=== PATIENT | female | born 1965 | race Caucasian/White ===

== ENCOUNTER 2016-02-28 16:37 | Observation (INO) | payer MEDICARE ==
[2016-02-28] MEDS ORDERED: SODIUM CHLORIDE 0.9% 500 ML IV STA (16:54)
[2016-02-28] MEDS ORDERED: SODIUM CHLORIDE 0.9% 1,000 ML IV STA ×2 (16:54)
[2016-02-28] MEDS ORDERED: LORazepam 2 MG/ML SYRINGE IV STA (16:57)
[2016-02-28 17:15] LABS: Basophils # (A) 0.1 k/uL (0-0.2); Basophils % (A) 1 %; CH 28.9; CHCM 33.3; Eosinophils # (A) 0.1 k/uL (0-0.7); Eosinophils % (A) 1 %; HCT 42.1 % (34.0-46.0); HDW 2.47; HGB 13.7 gm/dL (11.4-16.0); Luc # (Auto) 0.08; Luc % (Auto) 1; Lymphocytes # (A) 1.2 k/uL (1.0-4.8); Lymphocytes % (A) 14 %; MCH 28.3 pg (25.0-35.0); MCHC 32.4 g/dL (31.0-37.0); MCV 87.4 fL (80.0-100.0); Mean Platelet Volume 7.1; Monocytes # (A) 0.4 k/uL (0-1.0); Monocytes % (A) 5 %; Neutrophils % (A) 79 %; RBC 4.82 m/uL (3.80-5.40); RDW 14.1 % (11.5-15.5); WBC 8.8 k/uL (3.8-10.6); WBC (Perox) 9.23
[2016-02-28 17:28] LABS: ALT 29 U/L (9-52); AST 27 U/L (14-36); Alkaline Phosphatase 79 U/L (38-126); Anion Gap 14 mmol/L; Blood Urea Nitrogen 19 mg/dL (7-17); Calcium 10.2 mg/dL (8.4-10.2); Carbon Dioxide 24 mmol/L (22-30); Chloride 105 mmol/L (98-107); Glucose 119 mg/dL (74-99); Magnesium 1.5 mg/dL (1.6-2.3); Non-African American GFR(MDRD) >60 (>60 ml/min/1.73 sqM); Phosphorous 3.3 mg/dL (2.5-4.5); Potassium 4.1 mmol/L (3.5-5.1); Sodium 143 mmol/L (137-145); Total Bilirubin 0.6 mg/dL (0.2-1.3); Total Protein 8.4 g/dL (6.3-8.2)
--- NOTE | 2016-02-28 17:31 | XR ---
EXAMINATION TYPE: XR chest 2V DATE OF EXAM: 02/28/2016 5:24 PM COMPARISON: 11/10/2014 HISTORY: Weakness and chest pain TECHNIQUE: Frontal and lateral views of the chest are obtained. FINDINGS: Heart and mediastinum are normal. Lungs are clear of infiltrate. Costophrenic angles are c lear. There are no hilar masses. There are multiple densities along the thoracic esophagus related to previous surgery. Bony thorax is intact. IMPRESSION: No active cardiopulmonary disease. Normal heart. Esophageal surgery. No change.
[2016-02-28 17:34] LABS: Partial Thromboplastin Time 23.3 sec (22.0-30.0); Prothrombin Time 10.4 sec (9.0-12.0)
[2016-02-28 17:51] LABS: Creatine Kinase MB 1.7 ng/mL (0.0-2.4); Troponin I 0.029 ng/mL (0.000-0.034)
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
[2016-02-28] MEDS ORDERED: RX INFO: IV CONTRAST WAS GIVEN 1 EACH MISC MISCELLANE PRN (18:13)
[2016-02-28] MEDS ORDERED: ASPIRIN 81 MG CHEW PO STA (18:13)
[2016-02-28] MEDS ORDERED: HEPARIN SODIUM,PORCINE 5,000 UNIT/ML 1 ML VIAL IV PRN (18:13)
[2016-02-28] MEDS ORDERED: HEPARIN SODIUM,PORCINE 5,000 UNIT/ML 1 ML VIAL IV ONE (18:13)
[2016-02-28] MEDS ORDERED: NITROGLYCERIN SL TABS 0.4 MG TAB SUBLINGUAL PRN (18:13)
[2016-02-28] MEDS ORDERED: SODIUM CHLORIDE 0.9% 1,000 ML IV SCH (18:15)
[2016-02-28] MEDS ORDERED: HEPARIN SODIUM,PORCINE/D5W PMX 25,000 UNIT in DEXTROSE/WATER 1 500ML.BAG IV SCH (18:15)
--- NOTE | 2016-02-28 18:55 | CT ---
EXAMINATION TYPE: CT angio chest DATE OF EXAM: 02/28/2016 6:47 PM COMPARISON: 11/17/2015 HISTORY: Left sided Chest pain CT DLP: 144.2 mGycm Automated exposure control for dose reduction was used. CONTRAST: CTA scan of the thorax is performed with IV Contrast, patient injected with 53 mL of Omnipaque 350, p ulmonary embolism protocol. MIP images are created and reviewed. 3D reconstructed images are create d on an independent workstation and reviewed. FINDINGS: The lungs are clear of consolidation. There is no pleural effusion. There is a large hiatal hernia. T here are no hilar masses. There is no mediastinal adenopathy. There is no evidence of aortic aneurysm or dissection. Heart size is normal. There is no pericardial effusion. There is normal contrast opacification of the pulmonary arteries. I see no filling defect. There is m inimal pulmonary emphysema. The bony thorax is intact. There is a large right renal cortical cyst. IMPRESSION: NO EVIDENCE OF PULMONARY EMBOLISM. LARGE HIATAL HERNIA WITH GASTRIC PULL-THROUGH PROCEDURE.. MILD PUL MONARY EMPHYSEMA. NO CHANGE COMPARED TO OLD EXAM.
[2016-02-28 20:01] VITALS: RESP 16
[2016-02-28 20:49] VITALS: BMI 21.7
[2016-02-28] MEDS: METOPROLOL TARTRATE 25 MG TAB PO SCH (21:48)
[2016-02-29 00:58] LABS: Creatine Kinase MB 1.6 ng/mL (0.0-2.4); Troponin I 0.02 ng/mL (0.000-0.034)
[2016-02-29 05:43] LABS: Basophils # (A) 0.1 k/uL (0-0.2); Basophils % (A) 1 %; CH 28.5; CHCM 31.5; Eosinophils # (A) 0.2 k/uL (0-0.7); Eosinophils % (A) 3 %; HCT 40.6 % (34.0-46.0); HDW 2.45; HGB 12.2 gm/dL (11.4-16.0); Luc # (Auto) 0.08; Luc % (Auto) 1; Lymphocytes % (A) 33 %; MCH 27.4 pg (25.0-35.0); MCV 91.2 fL (80.0-100.0); Mean Platelet Volume 7.1; Monocytes # (A) 0.3 k/uL (0-1.0); Monocytes % (A) 5 %; Neutrophils # (A) 3.4 k/uL (1.3-7.7); Neutrophils % (A) 57 %; RBC 4.45 m/uL (3.80-5.40); RDW 14.2 % (11.5-15.5); WBC (Perox) 6.37
[2016-02-29 05:58] LABS: Cholesterol 222 mg/dL (<200); HDL Cholesterol 61 mg/dL (40-60); Triglycerides 94 mg/dL (<150)
[2016-02-29 06:18] LABS: Creatine Kinase MB 1.8 ng/mL (0.0-2.4); Troponin I 0.018 ng/mL (0.000-0.034)
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
[2016-02-29] MEDS ORDERED: ASPIRIN 325 MG TAB PO SCH (09:00)
[2016-02-29] MEDS ORDERED: ATORVASTATIN 80 MG TAB PO SCH (09:00)
[2016-02-29] MEDS: METOPROLOL TARTRATE 25 MG TAB PO SCH (12:36)
[2016-02-29 13:10] VITALS: BP 99/60; PULSE 86; TEMP 97.5
--- NOTE | 2016-02-29 13:10 | ECHOS ---
DATE OF SERVICE: 02/29/2016 AGE: 51Y SEX: F HT: 62" WT: 119 lbs. Protocol Earl: X Others: Stress Echo Stage: 3 Dur. of Exercise: 7:15 *Heart Rate Blood Pressure *Rest: 89 Rest: 111/81 * *Max. Achieved: 140 Maximum BP: 160/82 85% PMHR: 142 100% PMHR: 167 *METS: 8.3 INDICATIONS: Chest pain. MEDICATIONS: Omeprazole Baseline EKG revealed a sinus mechanism without significant ST-T changes. Patient walked on standard Earl protocol for 7 minutes 15 seconds, achieved a maximum heart rate of 140 beats per minute. Developed fatigue and shortness of breath and therefore stress test was stopped. She achieved almost 85% of predicted maximum heart rate. At this exercise level, her EKG did not reveal any ST segment changes to indicate ischemia and there was no arrhythmia and she did not have angina. Exercise capacity is somewhat limited. By EKG criteria, this is a negative stress test with limited exercise capacity. She takes achieved almost 85% of her predicted maximum heart rate. Peak blood pressure was 160/82. Baseline echo images revealed a normal wall motion and wall thickening of all segments. At peak exercise, there was good augmentation of left ventricular wall motion and wall thickening of all segments suggesting that there is no evidence of any stress-induced ischemia on this study. FINAL IMPRESSION: 1. Limited exercise capacity with poor conditioning with unremarkable stress test by EKG criteria. 2. Normal stress echocardiogram.
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
== END 2016-02-29 14:43 | disposition home or self-care (01) ==
LOC: EC 16:37 → 3OBS 18:13
PROVIDERS: ADMIT Hospitalist; ATTEND Hospitalist
DX: R07.89 Other chest pain (principal); F17.210 Nicotine dependence, cigarettes, uncomplicated; F41.9 Anxiety disorder, unspecified; K21.9 Gastro-esophageal reflux disease without esophagitis; M19.90 Unspecified osteoarthritis, unspecified site; Z79.899 Other long term (current) drug therapy; Z85.01 Personal history of malignant neoplasm of esophagus; R20.0 Anesthesia of skin; Z80.3 Family history of malignant neoplasm of breast; Z80.8 Family history of malignant neoplasm of other organs or systems; Z88.6 Allergy status to analgesic agent; Z88.8 Allergy status to other drugs, medicaments and biological substances
CPT/HCPCS: 99291; 96365; 96375; 96376; 96361 ×2; 36415; 93005; 93017; 93350; 85379; 80061; 80053; 82550 ×2; 82553 ×2; 83735; 84100; 84443; 84484 ×2; 85025 ×2; 85610; 85730 ×2; 71020; 71275; G0378 ×2; J2060; J1644 ×2; Q9967; 96366

== ENCOUNTER 2016-05-11 08:32 | Inpatient (IN) | payer MEDICARE ==
[2016-05-11] MEDS ORDERED: ONDANSETRON 4 MG/2 ML VIAL IVP STA (08:49)
[2016-05-11] MEDS ORDERED: SODIUM CHLORIDE 0.9% 1,000 ML IV ONE (08:49)
[2016-05-11] MEDS ORDERED: PANTOPRAZOLE 40 MG/10 ML VIAL IVP STA (08:49)
[2016-05-11] MEDS ORDERED: HYDROmorphone 1 MG/ML 1 ML SYRINGE IVP STA ×2 (08:49→09:57)
--- NOTE | 2016-05-11 08:57 | ED ---
General Adult HPI - General Source: patient, RN notes reviewed Mode of arrival: ambulatory Limitations: no limitations <Eros Adamson - Last Filed: 05/11/16 10:20> <Bill Hi - Last Filed: 05/11/16 11:55> - General Chief complaint: Nausea/Vomiting/Diarrhea Stated complaint: Throwing up Blood Time Seen by Provider: 05/11/16 08:38 - History of Present Illness Initial comments: 51-year-old female patient has past medical history significant for esophageal cancer status post esophagectomy and partial gastrectomy with gastric pull through and chemotherapy six years ago. Today she presents for complaints of hematemesis. Patient states that last night she had 2 episodes of vomiting with a small amount of blood present. Patient states that this morning she has vomited multiple times with large amounts of bright red blood. Patient states that she is having some midepigastric abdominal pain, that she describes as a pressure or a "gas bubble". Patient denies any history of GI bleed. Patient denies any dark, bloody, or black stools. Patient denies any chest pain, back pain, constipation, diarrhea, shortness of breath, or dizziness. She states she is somewhat weak and was lightheaded when walking to her exam room. Patient 's surgery was done at [facility] 6 years ago. Patient's oncologist is Dr. Morris. Patient states that her subjective cancer is in remission for her oncologist. (Eros Adamson) - Related Data Home Medications Medication Instructions Recorded Confirmed Omeprazole [PriLOSEC] 20 mg PO PC-LUNCH 10/06/13 05/11/16 Allergies Allergy/AdvReac Type Severity Reaction Status Date / Time aspirin AdvReac Abdominal Verified 05/11/16 08:52 Pain STERIODS AdvReac CHEST Uncoded 05/11/16 08:35 TIGHTNESS Review of Systems ROS Other: All systems not noted in ROS Statement are negative. <Eros Adamson - Last Filed: 05/11/16 10:20> ROS Other: All systems not noted in ROS Statement are negative. <Bill Hi - Last Filed: 05/11/16 11:55> ROS Statement: Those systems with pertinent positive or pertinent negative responses have been documented in the HPI. Past Medical History Past Medical History: Cancer, GERD/Reflux, Osteoarthritis (OA) Additional Past Medical History / Comment(s): hx of esophageal cancer 2010-had chemo & radiation prior to surg., recent shingles now resolved History of Any Multi-Drug Resistant Organisms: None Reported Past Surgical History: Section, Tubal Ligation Additional Past Surgical History / Comment(s): surg. for fx. pelvis @age of 16, had most of esophagus & 1/3 of stomach removed @[facility] Past Anesthesia/Blood Transfusion Reactions: No Reported Reaction Past Psychological History: Anxiety, Depression Additional Psychological History / Comment(s): 6 months ago Smoking Status: Current every day smoker Past Alcohol Use History: Occasional Additional Past Alcohol Use History / Comment(s): STATES HAS CIGARETTE WITH ALCHOHOL USE ONCE A MONTH Past Drug Use History: None Reported Additional Drug Use History / Comment(s): OCCASIONAL USE, INSTRUCTED NOT TO USE 24 HRS PRIOR TO PROCEDURE - Past Family History Sister(s) Family Medical History: Deep Vein Thrombosis (DVT) Mother Family Medical History: Deep Vein Thrombosis (DVT) <Eros Adamson - Last Filed: 05/11/16 10:20> General Exam Limitations: no limitations General appearance: alert, in no apparent distress, anxious Head exam: Present: atraumatic, normocephalic, normal inspection Eye exam: Present: normal appearance, PERRL, EOMI. Absent: scleral icterus, conjunctival injection, periorbital swelling ENT exam: Present: normal exam, mucous membranes moist Neck exam: Present: normal inspection, full ROM. Absent: tenderness, meningismus, lymphadenopathy Respiratory exam: Present: normal lung sounds bilaterally. Absent: respiratory distress, wheezes, rales, rhonchi, stridor Cardiovascular Exam: Present: normal rhythm, tachycardia, normal heart sounds. Absent: systolic murmur, diastolic murmur, rubs, gallop, clicks GI/Abdominal exam: Present: soft, tenderness (Exquisite tenderness in the upper abdomen.), guarding, normal bowel sounds. Absent: distended, rebound, rigid, organomegaly, mass, hernia Extremities exam: Present: normal inspection, full ROM, normal capillary refill. Absent: tenderness, pedal edema, joint swelling, calf tenderness Back exam: Present: normal inspection Neurological exam: Present: alert, oriented X3, CN II-XII intact Psychiatric exam: Present: anxious Skin exam: Present: warm, dry, intact, pallor. Absent: rash <Eros Adamson - Last Filed: 05/11/16 10:20> General appearance: alert, in no apparent distress Head exam: Present: atraumatic, normocephalic, normal inspection Eye exam: Present: normal appearance, PERRL, EOMI. Absent: scleral icterus, conjunctival injection, periorbital swelling ENT exam: Present: normal exam, mucous membranes moist Neck exam: Present: normal inspection. Absent: tenderness, meningismus, lymphadenopathy Respiratory exam: Present: normal lung sounds bilaterally. Absent: respiratory distress, wheezes, rales, rhonchi, stridor Cardiovascular Exam: Present: normal rhythm, tachycardia, normal heart sounds. Absent: systolic murmur, diastolic murmur, rubs, gallop, clicks GI/Abdominal exam: Present: soft, normal bowel sounds. Absent: distended, tenderness, guarding, rebound, rigid Extremities exam: Present: normal inspection, full ROM, normal capillary refill. Absent: tenderness, pedal edema, joint swelling, calf tenderness Back exam: Present: normal inspection Neurological exam: Present: alert, oriented X3, CN II-XII intact Psychiatric exam: Present: normal affect, normal mood Skin exam: Present: warm, dry, intact, normal color. Absent: rash <Bill Hi - Last Filed: 05/11/16 11:55> Course <Eros Adamson - Last Filed: 05/11/16 10:20> <Bill Hi - Last Filed: 05/11/16 11:55> Vital Signs 05/11/16 08:35 Temperature 97.9 F Pulse Rate 121 H Respiratory 17 Rate Blood Pressure 146/80 O2 Sat by Pulse 98 Oximetry - Reevaluation(s) Reevaluation #1: 05/11/16 11:54 Patient's vomiting has stopped with adequate antiemetics (Bill Hi) EKG Findings - EKG Comments: EKG Findings:: EKG obtained at 0926 reveals sinus tachycardia with possible left atrial enlargement. Ventricular rate 102, SC interval 122, QRS duration 78 , QT 344, QTc 448. No evidence of ST elevation or depression <Eros Adamson - Last Filed: 05/11/16 10:20> Medical Decision Making - Lab Data Result diagrams: 05/11/16 09:15 05/11/16 09:15 <Eros Adamson - Last Filed: 05/11/16 10:20> - Lab Data Result diagrams: 05/11/16 09:15 05/11/16 09:15 <Bill Hi - Last Filed: 05/11/16 11:55> - Medical Decision Making 51-year-old presented for hematemesis. Patient did have an episode in the emergency department. Patient is stable. Patient be admitted to the hospital with evaluation from Dr. Stubbs and Dr. Branham. (Eros Adamson) 51-year-old hemodynamically stable coming with acute upper GI bleed, suspect Belinda-Álvarez tear from retching, patient will be admitted for evaluation of hemoglobin GI evaluation and surgical evaluation patient has complicated upper GI history with esophageal cancer and surgery (Bill Hi) - Lab Data Lab Results 05/11/16 05/11/16 05/11/16 Range/Units 09:15 09:15 09:15 WBC 7.6 (3.8-10.6) k/uL RBC 4.51 (3.80-5.40) m/uL Hgb 12.7 (11.4-16.0) gm/dL Hct 39.5 (34.0-46.0) % MCV 87.5 (80.0-100.0) fL MCH 28.2 (25.0-35.0) pg MCHC 32.2 (31.0-37.0) g/dL RDW 14.0 (11.5-15.5) % Plt Count 312 (150-450) k/uL Neutrophils % 76 % Lymphocytes % 15 % Monocytes % 4 % Eosinophils % 2 % Basophils % 1 % Neutrophils # 5.7 (1.3-7.7) k/uL Lymphocytes # 1.1 (1.0-4.8) k/uL Monocytes # 0.3 (0-1.0) k/uL Eosinophils # 0.2 (0-0.7) k/uL Basophils # 0.1 (0-0.2) k/uL PT 9.7 (9.0-12.0) sec INR 0.9 (<1.1) APTT 25.0 (22.0-30.0) sec Sodium 144 (137-145) mmol/L Potassium 4.4 (3.5-5.1) mmol/L Chloride 107 (98-107) mmol/L Carbon Dioxide 25 (22-30) mmol/L Anion Gap 12 mmol/L BUN 16 (7-17) mg/dL Creatinine 0.81 (0.52-1.04) mg/dL Est GFR (MDRD) Af Amer >60 (>60 ml/min/1.73 sqM) Est GFR (MDRD) Non-Af >60 (>60 ml/min/1.73 sqM) Glucose 116 H (74-99) mg/dL Calcium 9.5 (8.4-10.2) mg/dL Total Bilirubin 0.4 (0.2-1.3) mg/dL AST 23 (14-36) U/L ALT 22 (9-52) U/L Alkaline Phosphatase 102 (38-126) U/L Total Protein 7.9 (6.3-8.2) g/dL Albumin 4.3 (3.5-5.0) g/dL Amylase 70 (30-110) U/L Lipase 179 (23-300) U/L Blood Type Blood Type Recheck Antibody Screen Spec Expiration Date 05/11/16 Range/Units 09:15 WBC (3.8-10.6) k/uL RBC (3.80-5.40) m/uL Hgb (11.4-16.0) gm/dL Hct (34.0-46.0) % MCV (80.0-100.0) fL MCH (25.0-35.0) pg MCHC (31.0-37.0) g/dL RDW (11.5-15.5) % Plt Count (150-450) k/uL Neutrophils % % Lymphocytes % % Monocytes % % Eosinophils % % Basophils % % Neutrophils # (1.3-7.7) k/uL Lymphocytes # (1.0-4.8) k/uL Monocytes # (0-1.0) k/uL Eosinophils # (0-0.7) k/uL Basophils # (0-0.2) k/uL PT (9.0-12.0) sec INR (<1.1) APTT (22.0-30.0) sec Sodium (137-145) mmol/L Potassium (3.5-5.1) mmol/L Chloride (98-107) mmol/L Carbon Dioxide (22-30) mmol/L Anion Gap mmol/L BUN (7-17) mg/dL Creatinine (0.52-1.04) mg/dL Est GFR (MDRD) Af Amer (>60 ml/min/1.73 sqM) Est GFR (MDRD) Non-Af (>60 ml/min/1.73 sqM) Glucose (74-99) mg/dL Calcium (8.4-10.2) mg/dL Total Bilirubin (0.2-1.3) mg/dL AST (14-36) U/L ALT (9-52) U/L Alkaline Phosphatase (38-126) U/L Total Protein (6.3-8.2) g/dL Albumin (3.5-5.0) g/dL Amylase (30-110) U/L Lipase (23-300) U/L Blood Type O Positive Blood Type Recheck No Antibody Screen NEGATIVE Spec Expiration Date 05/14/20162314 Disposition Time of Disposition: 10:24 <Eros Adamson - Last Filed: 05/11/16 10:20> <Bill Hi - Last Filed: 05/11/16 11:55> Clinical Impression: Hematemesis, History of esophageal cancer, Epigastric pain, H/O esophagectomy Disposition: ADMITTED IP TO THIS [facility] Condition: Serious Referrals: Jose Ramirez MD [Primary Care Provider] - 1-2 days
[2016-05-11 09:36] LABS: Basophils # (A) 0.1 k/uL (0-0.2); Basophils % (A) 1 %; CH 28.3; CHCM 32.5; Eosinophils # (A) 0.2 k/uL (0-0.7); Eosinophils % (A) 2 %; HCT 39.5 % (34.0-46.0); HDW 2.46; HGB 12.7 gm/dL (11.4-16.0); Luc # (Auto) 0.15; Luc % (Auto) 2; Lymphocytes # (A) 1.1 k/uL (1.0-4.8); Lymphocytes % (A) 15 %; MCH 28.2 pg (25.0-35.0); MCHC 32.2 g/dL (31.0-37.0); MCV 87.5 fL (80.0-100.0); Mean Platelet Volume 6.3; Monocytes # (A) 0.3 k/uL (0-1.0); Monocytes % (A) 4 %; Neutrophils # (A) 5.7 k/uL (1.3-7.7); Neutrophils % (A) 76 %; RBC 4.51 m/uL (3.80-5.40); WBC 7.6 k/uL (3.8-10.6); WBC (Perox) 7.84
--- NOTE | 2016-05-11 09:38 | XR ---
EXAMINATION TYPE: XR chest 1V portable DATE OF EXAM: 05/11/2016 9:31 AM HISTORY: Pain. REFERENCE: Previous study dated 02/28/2016. FINDINGS: There is a surgical staple line projecting over the spine. There is a calcified granuloma in the right upper lobe. The lungs are otherwise clear. Pleural spaces are clear. Heart size is normal. IMPRESSION: 1. NO ACUTE INTRATHORACIC ABNORMALITY. 2. POSTSURGICAL CHANGE. 3. OLD GRANULOMATOUS DISEASE.
[2016-05-11 09:45] LABS: ALT 22 U/L (9-52); AST 23 U/L (14-36); Alkaline Phosphatase 102 U/L (38-126); Amylase 70 U/L (30-110); Anion Gap 12 mmol/L; Blood Urea Nitrogen 16 mg/dL (7-17); Calcium 9.5 mg/dL (8.4-10.2); Carbon Dioxide 25 mmol/L (22-30); Chloride 107 mmol/L (98-107); Glucose 116 mg/dL (74-99); Non-African American GFR(MDRD) >60 (>60 ml/min/1.73 sqM); Potassium 4.4 mmol/L (3.5-5.1); Sodium 144 mmol/L (137-145); Total Bilirubin 0.4 mg/dL (0.2-1.3); Total Protein 7.9 g/dL (6.3-8.2)
[2016-05-11 09:46] LABS: INR 0.9 (<1.1); Prothrombin Time 9.7 sec (9.0-12.0)
[2016-05-11] MEDS ORDERED: METOCLOPRAMIDE 5 MG/ML 2 ML VIAL IVP STA (09:57)
--- NOTE | 2016-05-11 09:59 | XR ---
EXAMINATION TYPE: XR KUB DATE OF EXAM ORDERED: 05/11/2016 9:31 AM HISTORY: Pain. COMPARISON: Previous study dated 11/18/2013. FINDINGS: There has been previous wiring of the symphysis pubis. The wires are fractured. There are healed fractures of both the superior and inferior pubic rami on the right. There has been left upper quadrant surgery. There is an enlarging staghorn calculus involving the right kidney. The largest fragment measures 3 c m. There are multiple left renal calculi. The largest measures 11.3 mm. There are globular radiopaque particles in the right upper quadrant, unchanged from previous. There i s artifact overlying the pelvis related to metal tubing. IMPRESSION: 1. ENLARGING STAGHORN CALCULUS ON THE RIGHT. 2. BILATERAL NEPHROLITHIASIS. 3. POSTSURGICAL CHANGE. 4. ARTIFACT OVERLYING THE PELVIS. 5. STABLE AMORPHOUS DENSITIES IN THE RIGHT UPPER QUADRANT.
[2016-05-11] MEDS ORDERED: ONDANSETRON 4 MG/2 ML VIAL IVP PRN (10:24)
[2016-05-11] MEDS ORDERED: NALOXONE 0.4 MG/ML 1 ML VIAL IV PRN (10:24)
[2016-05-11] MEDS: HYDROmorphone 1 MG/ML 1 ML SYRINGE IV PRN ×3 (14:08→23:15)
[2016-05-11] MEDS: SODIUM CHLORIDE 0.9% 1,000 ML IV SCH ×2 (14:11→23:16)
--- NOTE | 2016-05-11 17:05 | P.GSCN ---
History of Present Illness Consult date: 05/11/16 Reason for Consult: Hematemesis History of present illness: Patient has a personal history of esophageal cancer treated with a esophagectomy at [facility] 6 years ago. She began experiencing blood when she coughed or had emesis. She has had several episodes like this. She cannot clarify further whether this was related to coughing or vomiting. She was having some mild chest pain. That has resolved. No bleeding recently. Denies melanotic stools. Last upper endoscopy done by Dr. Branham not that long ago she states. CAT scan in February showed no definite abnormalities. Her hemoglobin white blood cell count both normal. Chest x-ray shows no pneumomediastinum. She is experiencing some relative hypotension. Review of Systems The patient denies any acute changes in his vision or hearing, no dysphagia or odynophagia, no shortness of breath, no dysuria or hematuria, no headache, no runny nose, no rectal bleeding or melena, no unexplained weight loss Past Medical History Past Medical History: Cancer, GERD/Reflux, Osteoarthritis (OA) Additional Past Medical History / Comment(s): hx of esophageal cancer 2010-had chemo & radiation prior to surg., recent shingles now resolved, hx of bleeding ulcer. History of Any Multi-Drug Resistant Organisms: None Reported Past Surgical History: Section, Tubal Ligation Additional Past Surgical History / Comment(s): surg. for fx. pelvis @age of 16, had most of esophagus & 1/3 of stomach removed @[facility] Past Anesthesia/Blood Transfusion Reactions: No Reported Reaction Past Psychological History: Anxiety, Depression Additional Psychological History / Comment(s): 6 months ago Smoking Status: Current every day smoker Past Alcohol Use History: Occasional Additional Past Alcohol Use History / Comment(s): STATES HAS CIGARETTE WITH ALCHOHOL USE ONCE A MONTH Past Drug Use History: None Reported Additional Drug Use History / Comment(s): OCCASIONAL USE, INSTRUCTED NOT TO USE 24 HRS PRIOR TO PROCEDURE - Past Family History Sister(s) Family Medical History: Deep Vein Thrombosis (DVT) Mother Family Medical History: Deep Vein Thrombosis (DVT) Medications and Allergies Home Medications Medication Instructions Recorded Confirmed Type Omeprazole [PriLOSEC] 20 mg PO PC-LUNCH 10/06/13 05/11/16 History Allergies Allergy/AdvReac Type Severity Reaction Status Date / Time aspirin AdvReac Abdominal Verified 05/11/16 08:52 Pain STERIODS AdvReac CHEST Uncoded 05/11/16 08:35 TIGHTNESS Surgical - Exam Vital Signs Temp Pulse Resp BP Pulse Ox 97.9 F 121 H 17 146/80 98 05/11/16 08:35 05/11/16 08:35 05/11/16 08:35 05/11/16 08:35 05/11/16 08:35 Physical exam: General: Well-developed, slightly malnourished appearing white female HEENT: Normocephalic, sclerae nonicteric Abdomen: Nontender, nondistended Extremities: No edema Neuro: Alert and oriented Results - Labs 05/11/16 09:15 05/11/16 09:15 Assessment and Plan (1) Hematemesis Narrative/Plan: Continue antiacid therapy. Consult pulmonary if hemoptysis becomes more evident. Await GI evaluation for upper endoscopy. Status: Acute
[2016-05-11] MEDS: PANTOPRAZOLE 40 MG/10 ML VIAL IV SCH (19:59)
[2016-05-12] MEDS: HYDROmorphone 1 MG/ML 1 ML SYRINGE IV PRN ×2 (04:30→18:41)
[2016-05-12] MEDS: SODIUM CHLORIDE 0.9% 1,000 ML IV SCH ×2 (06:23→16:31)
[2016-05-12] MEDS ORDERED: IV FLUID CONTINUATION 1,000 ML IV ONE (07:40)
[2016-05-12] MEDS ORDERED: PROPOFOL 10 MG/ML 20 ML VIAL IV ONE (08:48)
[2016-05-12] MEDS ORDERED: MIDAZOLAM 2 MG/2 ML VIAL ONE (08:48)
[2016-05-12] MEDS ORDERED: fentaNYL (PF) 50 MCG/ML 2 ML AMP ONE (08:48)
--- NOTE | 2016-05-12 09:06 | P.PCN ---
Date of Procedure: 05/12/16 Procedure(s) Performed: BRIEF HISTORY: Patient is a 51-year-old, pleasant, white female, scheduled for an upper endoscopy as a part of evaluation of hematemesis/coffee-ground emesis that started yesterday. The patient has history of esophageal cancer for which she underwent neoadjuvant chemoradiation followed by surgery in 2010 and remains in remission. Last upper endoscopy 2 years ago did show ulceration at the anastomosis and since has been on Prilosec 20 mg daily and doing well. Because of the upper GI bleed she is scheduled for an upper endoscopy today. PROCEDURE PERFORMED: Esophagogastroduodenoscopy and biopsy. PREOPERATIVE DIAGNOSIS: Acute upper GI bleed. IV sedation per anesthesia. PROCEDURE: After informed consent was obtained, the patient was brought into the endoscopy unit. IV conscious sedation was administered by Anesthesia under continuous monitoring. Initially the Olympus GIF-140 video endoscope was inserted into the mouth. Esophagus intubated without any difficulty. It was gradually advanced. There was evidence of distal esophagectomy and partial gastrectomy with the esophageal gastric anastomosis at 25 cm from the incisors. The scope was advanced into the into the stomach and duodenum and carefully examined. The bulb and the second part of the duodenum appeared normal. The scope at this time was withdrawn to the stomach, adequately insufflated with air , and upon careful examination, mucosa of the antrum, body appeared normal. The scope was then withdrawn into the esophagus. The anastomosis was located at 25 cm from the incisors and there was a superficial 1 cm ulceration identified with no active bleeding. Also there was a 1 cm length of Wadsworth's appearing mucosa proximal to the anastomosis and this was biopsied. The rest of the esophagus appeared normal and the patient tolerated the procedure well. IMPRESSION: 1. 1 cm superficial esophageal ulcer with esophagitis at the anastomosis with no active bleeding. 2. Short segment Wadsworth's esophagus. RECOMMENDATIONS: The findings of this examination were discussed with the patient as well as her family. She was advised to follow with the biopsy results. She will continue with Protonix 40 mg daily and follow antireflux measures. She will be started on a clear liquid diet and advance as tolerated.
[2016-05-12] MEDS: PANTOPRAZOLE 40 MG/10 ML VIAL IV SCH ×2 (09:56→21:51)
--- NOTE | 2016-05-12 11:55 | CONS ---
DATE OF CONSULTATION: 05/12/2016 Requesting physician: Dr. Jose Ramirez. REASON FOR CONSULTATION: Hematemesis. HISTORY OF PRESENT ILLNESS: The patient is a 51-year-old pleasant lady who was admitted to the hospital with 3 episodes of hematemesis. The patient states that she started coughing following which she threw up some blood but at one point she is not sure whether it was hemoptysis or hematemesis. However, she feels that there was a cupful each time of initially bright red and then coffee colored materials. Since then she did not have major episodes but she has been coughing up with small amount of coffee-ground materials. She denies any abdominal pain. Reports no nausea. She was diagnosed with distal esophageal adenocarcinoma in 2010 status post neoadjuvant chemoradiation followed by surgery at [facility] and since then she has been in clinical remission. Her last upper endoscopy was done by Dr. Beth 2 years ago and that showed an ulceration at the anastomosis. The patient since has been on Prilosec 20 mg every other day and doing well. She reports no heartburn. No dysphagia or odynophagia. PAST MEDICAL HISTORY: Gastroesophageal reflux disease, degenerative joint disease, singles. PAST SURGICAL HISTORY: History of esophageal cancer 2010 status post chemoradiation followed by surgery in 2010 and has remained in clinical remission, history of , tubal ligation. Medications at home include: Omeprazole p.r.n. ALLERGIES: ASPIRIN AND STEROIDS. SOCIAL HISTORY: Occasional smoking. No alcohol use. FAMILY HISTORY: Sister had DVT and mother also has DVT. REVIEW OF SYSTEMS: CARDIOPULMONARY: No chest pain or shortness of breath but she does have some cough. NEUROLOGY: Unremarkable. PSYCHIATRIC: Unremarkable. ENT: Vision unremarkable. CONSTITUTIONAL: No recent weight loss. No fever, chills or night sweats. GI: As mentioned above. MUSCULOSKELETAL: Unremarkable. ENDOCRINE: Unremarkable. HEMATOLOGY: Unremarkable. PSYCHIATRIC: Unremarkable. On physical examination, she appears comfortable in no apparent distress. Vitals as are stable. Blood pressure is 113/74, pulse 104, temperature 98.4. HEENT examination unremarkable, conjunctivae pink, sclerae anicteric. Oral cavity, no lesions. NECK: No JVD or lymph node enlargement. Chest was clear to auscultation. HEART: Regular rate and rhythm. ABDOMEN: Soft. Bowel sounds are positive. No organomegaly. EXTREMITIES: No pedal edema. SKIN: No rashes. NEURO: Alert and oriented x3. No focal deficits. LABS: WBC 7.6, hemoglobin 12.7, platelets are normal. Basic metabolic panel is within normal limits. Chest x-ray done yesterday in the emergency room showed some old granulomatous disease. IMPRESSION: This is a lady who presents with couple of episodes of hematemesis, but she also states that she has been having some cough for the last 2 days with hemoptysis too. She does have history of esophageal cancer diagnosed in 2010 status post chemo followed by surgery and since remained in clinical remission. Last upper endoscopy in [address] Beth did show an ulceration and anastomosis. Her hemoglobin is stable at the present time. RECOMMENDATIONS: 1. Continue with IV Protonix. 2. Will proceed with an upper endoscopy today. I discussed with the patient risks, benefits and complications and she is agreeable to it. Further recommendations follow based an upper endoscopy results. Thank you for this consultation.
[2016-05-12 12:22] VITALS: BMI 21.9
[2016-05-12] MEDS: NICOTINE 14MG/24HR PATCH TRANSDERM SCH (15:25)
[2016-05-12] MEDS ORDERED: ACETAMINOPHEN TAB 325 MG TAB PO PRN (15:28)
--- NOTE | 2016-05-12 16:16 | HP ---
DATE OF ADMISSION: 05/11/2016 PRESENTING COMPLAINT: Vomiting. HISTORY OF PRESENTING COMPLAINT: This is a patient who I saw earlier today. Because of [employer] being down for several hours yesterday, patient could not be seen earlier. This is a patient known history of partial esophagectomy and partial gastrectomy done for esophageal cancer about 6 years ago. Patient continued to smoke. Patient presented with vomiting 2 cups of blood. Other chronic stable conditions include anxiety, GERD. Patient does get short of breath on exertion. Patient is a long-standing smoker. REVIEW OF SYSTEMS: CONSTITUTIONAL: Tired. HEENT: None. RESPIRATORY: Short of breath on exertion. CARDIOVASCULAR: None. GASTROINTESTINAL: As above. GENITOURINARY: None. MUSCULOSKELETAL: Some aches and pains in the joints. DERMATOLOGICAL: None. HEMATOLOGICAL: None. LYMPHATIC: None. PSYCHIATRY: Anxiety. NEUROLOGICAL: None. PAST HISTORY: GERD, osteoarthritis, esophageal cancer, chemoradiation and partial esophagus and partial stomach removed, recent shingles, bleeding ulcer. PAST SURGICAL HISTORY: , tubal ligation, history of fractured pelvis at age 16. PAST PSYCH HISTORY: Anxiety, depression. SOCIAL HISTORY: Patient's 6 months ago. Smoked less than 1/2 pack a day until about 2 to 3 years ago, had smoked for a long time. FAMILY HISTORY: Bone and breast cancer, DVT. HOME MEDICATIONS: Prilosec 20 mg a day. ALLERGIES: ASPIRIN AND STEROIDS. On examination, temperature 98.2, pulse 103, respirations 16, blood pressure 106/67, pulse ox 94% on room air. GENERAL APPEARANCE: Thin build. Sitting up, not in distress. EYES: Pupils equal. Conjunctivae normal. HEENT: Oral cavity normal. NECK: JVD not raised. Mass not palpable. RESPIRATORY: Effort normal. LUNGS: Diminished breath sounds. CARDIOVASCULAR: First and second sounds normal. No edema. ABDOMEN: Soft, nontender. Liver and spleen not palpable. LYMPHATIC: No lymph nodes palpable in neck or axillae. PSYCHIATRY: Alert and oriented x3. Mood and affect anxious appearing. NEUROLOGICAL: Pupils equal. Cranial nerves grossly intact. Power and sensation grossly intact. MUSCULOSKELETAL: Evidence of osteoarthritis, especially in the hands. INVESTIGATIONS: White count 7.6, hemoglobin 12.7, potassium 4.4. Chest x-ray shows ( ) tubular heart. The patient also had procedure; EGD showed 1 cm superficial esophageal ulcer, esophagitis at the anastomosis and short segment of Wadsworth's esophagus. ASSESSMENT: 1. Acute upper gastrointestinal bleed in a patient who continues to smoke and found to have a superficial esophageal ulcer with esophagitis at the anastomosis and short segment of Wadsworth's esophagus. 2. Emphysema on clinical exam in a long-standing smoker. 3. Anxiety, not otherwise specified. 4. Gastroesophageal reflux disease. 5. Primary osteoarthritis of multiple joints, bilateral. PLAN: Patient counseled against smoking and will be given a nicotine patch, put on PPIs. Hemoglobin and hematocrit will be followed. Hold off anticoagulation because of vomiting blood. Care was discussed with the patient and will also given some breathing treatments.
[2016-05-12] MEDS: IPRATROPIUM-ALBUTEROL 3 ML NEB INHALATION SCH ×2 (17:16→20:39)
[2016-05-13] MEDS: SODIUM CHLORIDE 0.9% 1,000 ML IV SCH ×3 (03:36→21:38)
[2016-05-13] MEDS: IPRATROPIUM-ALBUTEROL 3 ML NEB INHALATION SCH ×4 (07:26→19:35)
[2016-05-13] MEDS: PANTOPRAZOLE 40 MG/10 ML VIAL IV SCH ×2 (09:14→21:38)
[2016-05-13] MEDS: NICOTINE 14MG/24HR PATCH TRANSDERM SCH (09:15)
[2016-05-13 10:11] LABS: Basophils % (A) 1 %; CH 28.3; CHCM 32.3; Eosinophils # (A) 0.1 k/uL (0-0.7); Eosinophils % (A) 2 %; HCT 30.6 % (34.0-46.0); HDW 2.69; Luc % (Auto) 2; Lymphocytes # (A) 0.8 k/uL (1.0-4.8); Lymphocytes % (A) 18 %; MCH 28.7 pg (25.0-35.0); MCHC 32.6 g/dL (31.0-37.0); MCV 88.1 fL (80.0-100.0); Mean Platelet Volume 7.1; Monocytes # (A) 0.2 k/uL (0-1.0); Monocytes % (A) 5 %; Neutrophils # (A) 3.1 k/uL (1.3-7.7); Neutrophils % (A) 73 %; RBC 3.47 m/uL (3.80-5.40); RDW 14.1 % (11.5-15.5); WBC 4.3 k/uL (3.8-10.6); WBC (Perox) 4.52
--- NOTE | 2016-05-13 10:41 | P.PN ---
Subjective Principal diagnosis: The patient had an episode of coughing or spitting up some bright red blood yesterday but none since. Was found to have evidence of anastomotic ulcer bleeding. Currently on medical management. On examination the patient is awake alert in no distress. No abdominal pain tenderness. Impression upper GI bleed probably secondary to anastomotic ulcer. Recommendation continued medical management. Hemoglobin did drop to 10.4 g percent from 12.62 days ago but may be secondary partially to hydration. Objective - Vital Signs Vital signs: Vital Signs Temp 98.1 F 05/13/16 08:00 Pulse 100 05/13/16 08:00 Resp 17 05/13/16 08:00 BP 109/74 05/13/16 08:00 Pulse Ox 97 05/13/16 08:00 Intake & Output 05/12/16 05/13/16 05/13/16 18:59 06:59 18:59 Intake Total 700 950 Output Total 900 Balance 700 50 Weight 54.3 kg 55.1 kg Intake: IV 100 Intake, IV Titration 600 950 Amount Sodium Chloride 0.9% 1, 600 950 000 ml @ 100 mls/hr IV . Q10H PETER Rx#:[id number] Output: Urine 900 Other: # Voids 0 # Bowel Movements 0 - Labs CBC & Chem 7: 05/13/16 09:38 05/11/16 09:15 Labs: Abnormal Lab Results - Last 24 Hours (Table) 05/13/16 Range/Units 09:38 RBC 3.47 L (3.80-5.40) m/uL Hgb 10.0 L D (11.4-16.0) gm/dL Hct 30.6 L (34.0-46.0) % Lymphocytes # 0.8 L (1.0-4.8) k/uL
--- NOTE | 2016-05-13 13:15 | PN ---
DATE OF SERVICE 05/13/2016 Patient is a 51-year-old pleasant lady admitted to the hospital with 3 episodes of hematemesis. She underwent an upper endoscopy yesterday that showed 1 cm ulcerated anastomosis and esophagogastric anastomosis with no active bleeding. The patient was started on clear liquid diet, IV Protonix 40 mg q.12 hours. However, early this morning she had coughing and she spit up 30 mL of coffee-colored material. She denies any abdominal pain. Now, she is feeling better. On physical examination, appears comfortable, in no apparent distress. Vitals signs are stable. Blood pressure is 120/86, pulse rate 100, temperature 98.1. HEENT EXAMINATION: Unremarkable. Conjunctivae pink. Sclerae nonicteric. Oral cavity, no lesions. NECK: No JVD or lymph node enlargement. Chest was clear to auscultation. HEART: Regular rate and rhythm. Abdomen is soft. Bowel sounds are positive. No organomegaly. EXTREMITIES: No pedal edema. SKIN: No rashes. NEURO: Alert and oriented x2. No focal deficits. Labs from this morning, not available yet. IMPRESSION: Acute upper gastrointestinal bleed. Related to superficial ulcerated gastroesophageal anastomosis from her previous surgery for esophageal cancer in 2010. Presently on IV Protonix 40 mg q.12 hours. She still has a small amount of oozing noted resulting in spitting up some blood. RECOMMENDATIONS: 1. Advised to continue Protonix 40 q.12. 2. Advance to a soft diet. 3. Antireflux measures. 4. CBC today. Will follow her closely.
[2016-05-13] MEDS: HYDROmorphone 1 MG/ML 1 ML SYRINGE IV PRN (21:38)
[2016-05-14 08:10] LABS: Basophils % (A) 1 %; CHCM 32.6; Eosinophils # (A) 0.2 k/uL (0-0.7); Eosinophils % (A) 3 %; HCT 30.4 % (34.0-46.0); HDW 2.63; Luc % (Auto) 2; Lymphocytes % (A) 21 %; MCH 28.4 pg (25.0-35.0); MCHC 32.9 g/dL (31.0-37.0); MCV 86.4 fL (80.0-100.0); Mean Platelet Volume 6.4; Monocytes # (A) 0.3 k/uL (0-1.0); Monocytes % (A) 6 %; Neutrophils # (A) 3.2 k/uL (1.3-7.7); Neutrophils % (A) 67 %; RBC 3.52 m/uL (3.80-5.40); RDW 14.1 % (11.5-15.5); WBC 4.8 k/uL (3.8-10.6); WBC (Perox) 5.05
[2016-05-14] MEDS: IPRATROPIUM-ALBUTEROL 3 ML NEB INHALATION SCH ×2 (08:17→11:27)
[2016-05-14] MEDS: PANTOPRAZOLE 40 MG/10 ML VIAL IV SCH (09:10)
[2016-05-14] MEDS: NICOTINE 14MG/24HR PATCH TRANSDERM SCH (09:11)
[2016-05-14] MEDS: SODIUM CHLORIDE 0.9% 1,000 ML IV SCH (09:19)
--- NOTE | 2016-05-14 09:57 | PN ---
DATE OF SERVICE: 05/13/2016 PRESENTING COMPLAINT: Vomiting blood. INTERVAL HISTORY: This is a patient with a history of partial esophagectomy, partial gastrectomy for esophageal cancer, presented with bleeding. EGD showing ulcer at the anastomotic site. Patient had a very small amount of blood last night. Diet has been advanced. Review of systems done for constitutional, cardiovascular, GI, pulmonary; relevant findings as above. Current medications include IV PPI. On examination, temperature 98.1, pulse 100, respirations 17, blood pressure monitor 109/74, pulse ox 97%. GENERAL APPEARANCE: Sitting up, comfortable. EYES: Pupils equal. Conjunctivae normal. NECK: JVD not raised. Mass not palpable. RESPIRATORY: Effort normal. LUNGS: Slightly decreased breath sounds. CARDIOVASCULAR: First and second heart sounds are normal. No edema. ABDOMEN: Soft, nontender. Liver and spleen not palpable. PSYCHIATRY: Alert, oriented x3. Mood and affect normal. INVESTIGATIONS: Hemoglobin is 10. ASSESSMENT: 1. Acute upper gastrointestinal bleed in a patient who continues to smoke, found to have superficial esophageal ulcer with esophagitis at anastomotic site on short segment of Wadsworth's esophagus. 2. Emphysema on clinical exam in a long-standing smoker. 3. Anxiety, not otherwise specified. 4. Gastroesophageal reflux disease. 5. Primary osteoarthritis of multiple joints, bilateral. 6. Chronic nicotine dependence, patient is a smoker. 7. Acute blood loss anemia from upper gastrointestinal bleed. PLAN: Diet has been advanced. Repeat hemoglobin in the morning. Care discussed with the patient.
[2016-05-14 14:09] VITALS: BP 129/92; PULSE 113; RESP 17; TEMP 96.1
--- NOTE | 2016-05-15 08:03 | PN ---
DATE OF SERVICE: 05/14/2016 The patient is a 51-year-old pleasant lady admitted to the hospital with acute upper GI bleed. She underwent an upper endoscopy 2 days ago and was noted to have a 1 cm superficial ulcer at the esophagogastric anastomotic site and since has been on Protonix 40 mg q.12 hours and she is doing much better. She did not have any further episodes of bleeding. Her hemoglobin is stable at 10.5 g/dL. She denies any dysphagia or ( ). On physical examination, she appears comfortable in no apparent distress. Vital signs are stable. Blood pressure is 130/86, pulse 82 per minute and afebrile. HEENT EXAMINATION: Unremarkable. Conjunctivae pink. Sclerae anicteric. Oral cavity, no lesions. NECK: No JVD or lymph nod enlargement. Chest was clear to auscultation. HEART: Regular rate and rhythm. ABDOMEN: Soft. Bowel sounds are positive. No organomegaly. EXTREMITIES: No pedal edema. SKIN: No rashes. NEURO: Alert and oriented x3. No focal deficits. Labs done today hemoglobin is 10.5. IMPRESSION: 1. Acute upper gastrointestinal bleed secondary to 1 cm superficial ulcer at the esophagogastric junction ( ) and doing better. Her hemoglobin is stable and no further bleeding. 2. History of esophageal cancer, status post esophagectomy in 2010 and remains in clinical remission. RECOMMENDATIONS: 1. Advance to regular diet. 2. Continue with Protonix 40 mg b.i.d. 3. She can be discharged home today without patient follow up in ( ) weeks.
--- NOTE | 2016-05-16 07:46 | DS ---
DATE OF ADMISSION: 05/11/2016 DATE OF DISCHARGE: 05/14/2016 FINAL DIAGNOSES: 1. Acute upper gastrointestinal bleed in a patient who continues to smoke. Found to have esophageal ulcer and esophagitis at the junction of an episodic site of Wadsworth's esophagus, that is to stomach and esophagus. 2. Emphysema, on clinical examination in a long-standing smoker. 3. Anxiety, not otherwise specified. 4. Gastroesophageal reflux disease. 5. Primary osteoarthritis of multiple joints, bilateral. 6. Chronic nicotine dependence. Patient is a smoker. 7. Acute blood loss anemia from upper gastrointestinal bleed. CONSULTATION: Dr. Kendrick and Dr. Gonsalo Duval from GI. HOSPITAL COURSE: This patient presented vomiting blood, did undergo an EGD by Dr. Kelli Duval. Found to have a 1 cm superficial esophageal ulcer with esophagitis at the anastomotic site and a short segment of Wadsworth's esophagus. Patient was counseled repeatedly about smoking cessation. Patient's hemoglobin did drop down to 10 though remaining hemodynamically stable. On examination, lungs decreased breath sounds. CARDIOVASCULAR: First and second sounds normal. DISCHARGE MEDICATIONS: 1. Atrovent 2 puffs q.i.d. 2. Nicotine 14 mg patch. 3. Prilosec 40 mg b.i.d. No smoking. Follow up with Dr. Gonsalo Duval on 06/06/2016. Follow up with Dr. Ramirez in 1 week.
== END 2016-05-14 15:02 | disposition home or self-care (01) | DRG 381 ==
LOC: EC 08:32 → 6SEL 11:34 → 3SUR 05-12 17:47
PROVIDERS: ADMIT Hospitalist; ATTEND Hospitalist
PROC: 0DB58ZX Excision of Esophagus, Via Natural or Artificial Opening Endoscopic, Diagnostic (ICD-10-PCS; principal; 2016-05-12 08:30)
DX: K22.11 Ulcer of esophagus with bleeding (principal); D62 Acute posthemorrhagic anemia; I95.9 Hypotension, unspecified; R04.2 Hemoptysis; J43.9 Emphysema, unspecified; K21.0 Gastro-esophageal reflux disease with esophagitis; K22.70 Barrett's esophagus without dysplasia; R00.0 Tachycardia, unspecified; R53.1 Weakness; M19.041 Primary osteoarthritis, right hand; M19.042 Primary osteoarthritis, left hand; F17.210 Nicotine dependence, cigarettes, uncomplicated; F41.9 Anxiety disorder, unspecified; Z92.3 Personal history of irradiation; Z92.21 Personal history of antineoplastic chemotherapy; Z85.01 Personal history of malignant neoplasm of esophagus; Z80.3 Family history of malignant neoplasm of breast; F32.9 Major depressive disorder, single episode, unspecified; Z88.6 Allergy status to analgesic agent; Z88.8 Allergy status to other drugs, medicaments and biological substances; Z86.19 Personal history of other infectious and parasitic diseases; Z87.81 Personal history of (healed) traumatic fracture; Z79.899 Other long term (current) drug therapy; Z71.3 Dietary counseling and surveillance; Z71.6 Tobacco abuse counseling; Z90.49 Acquired absence of other specified parts of digestive tract; Z80.8 Family history of malignant neoplasm of other organs or systems; Z82.49 Family history of ischemic heart disease and other diseases of the circulatory system; Z98.51 Tubal ligation status; Z90.3 Acquired absence of stomach [part of]; Z87.19 Personal history of other diseases of the digestive system
CPT/HCPCS: 36415; 43239; 71010; 74000; 80053; 82150; 83690; 85025; 85610; 85730; 86850; 86900; 86901; 88305; 88342; 93005; 94640; 96361; 96374; 96375; 99285

== ENCOUNTER → 2017-01-04 | Outpatient (CLI) | payer MEDICARE ==
--- NOTE | 2017-01-07 09:50 | MM ---
Reason for exam: screening (asymptomatic). Last mammogram was performed 2 years and 2 months ago. History: Patient has history of other cancer at age 45. Family history of premenopausal breast cancer in aunt at age 40 and premenopausal breast cancer in aunt at age 46. Benign right mammotome panel of the right breast, September 09, 2009. Took hormonal contraceptives for 5 years beginning at age 14. Physical Findings: A clinical breast exam by your physician is recommended on an annual basis and results should be correlated with mammographic findings. MG Screening Mammo w CAD Bilateral CC, MLO, and XCCL view(s) were taken. Prior study comparison: October 27, 2014, bilateral MG screening mammo w CAD. September 05, 2009, right breast mammogram dig work up. The breast tissue is heterogeneously dense. This may lower the sensitivity of mammography. Nodular density central upper left breast. ASSESSMENT: Incomplete: need additional imaging evaluation, BI-RAD 0 RECOMMENDATION: Special view mammogram and ultrasound of the left breast. [facility] will attempt to contact patient to return for supplemental views and ultrasound.
== END | disposition home or self-care (01) ==
LOC: RADMAMWWP 09:30
PROVIDERS: ATTEND Internal Medicine Hematology & Oncology
DX: Z12.31 Encounter for screening mammogram for malignant neoplasm of breast (principal)

== ENCOUNTER 2017-05-08 07:59 | Day surgery (SDC) | payer MEDICARE ==
[~2017-05-08 07:59] MED LIST: LACTATED RINGERS 1,000 ML IV SCH
[2017-05-08 08:14] VITALS: RESP 16; TEMP 97.7
[2017-05-08] MEDS ORDERED: LIDOCAINE 1% 20 ML VIAL (10MG/ML) FOR IV START INTRADERMA ONE (08:19)
[2017-05-08] MEDS ORDERED: LIDOCAINE 1% INJ 10MG/ML (20 ML MDV) ONE (08:52)
[2017-05-08] MEDS ORDERED: PROPOFOL 10 MG/ML 20 ML VIAL IV ONE (08:52)
[2017-05-08] MEDS ORDERED: ONDANSETRON 4 MG/2 ML VIAL IVP ONE (09:29)
[2017-05-08 09:32] VITALS: BP 113/77; PULSE 87
--- NOTE | 2017-05-08 09:32 | P.PCN ---
Date of Procedure: 05/08/17 Procedure(s) Performed: BRIEF HISTORY: Patient is a 52-year-old, pleasant, 8 female, scheduled for an upper endoscopy as a part of evaluation of worsening heartburn for the last several months duration. She was diagnosed with esophageal cancer in 2010 status post chemo and radiation therapy followed by surgery. Since then she has been in remission. Lately has been having more passive regurgitation and heartburn. She is on Prilosec 40 mg daily. She had an upper endoscopy in April 2016 and was noted to have a 1 cm ulcer in the GE anastomosis. she is hence scheduled for repeat upper endoscopy to evaluate further. . PROCEDURE PERFORMED: Esophagogastroduodenoscopy with biopsy. PREOPERATIVE DIAGNOSIS:. chronic heartburn and history of esophageal cancer IV sedation per anesthesia. PROCEDURE: After informed consent was obtained, the patient was brought into the endoscopy unit. IV sedation was administered by Anesthesia under continuous monitoring. Initially the Olympus GIF-140 video endoscope was inserted into the mouth. Esophagus intubated without any difficulty. It was gradually advanced into stomach. The pylorus was patent. Despite multiple times I was not able to advance the scope into the duodenum. The mucosa of the antrum, body appeared normal. there was some retained food noted in the stomach. The scope was then withdrawn into the esophagus. The GE anastomosis was located at 27 cm from the incisors and there was 2 erosions identified but the previously noted ulceration was healed. Biopsies were done from the anastomosis. The proximal esophagus appeared normal. The patient tolerated the procedure well. IMPRESSION: 1. Erosions at the gastroesophageal anastomosis consistent with reflux esophagitis. 2. Retained food in the stomach RECOMMENDATIONS: The findings of this examination were discussed with the patient as well as her family. She was advised to increase the Prilosec to 20 mg twice daily and to be taken half hour before breakfast and dinnertime and follow antireflux measures. She was also advised on small frequent. She will follow with the biopsy results and she'll be seen in the office in 6 weeks.
== END 2017-05-08 09:58 | disposition home or self-care (01) ==
LOC: ORWHC2ENDO 07:59
PROVIDERS: ATTEND Internal Medicine Gastroenterology
DX: K20.0 Eosinophilic esophagitis (principal); K29.50 Unspecified chronic gastritis without bleeding; Z85.01 Personal history of malignant neoplasm of esophagus; Z92.3 Personal history of irradiation; Z92.21 Personal history of antineoplastic chemotherapy; Z90.49 Acquired absence of other specified parts of digestive tract; J44.9 Chronic obstructive pulmonary disease, unspecified; F17.210 Nicotine dependence, cigarettes, uncomplicated; Z87.442 Personal history of urinary calculi; K21.0 Gastro-esophageal reflux disease with esophagitis; Z79.899 Other long term (current) drug therapy; Z88.6 Allergy status to analgesic agent; Z88.8 Allergy status to other drugs, medicaments and biological substances
CPT/HCPCS: 88305; 88312; 43239; J2405; J2001; J2704

== ENCOUNTER → 2017-09-04 | Outpatient (CLI) | payer MEDICARE ==
--- NOTE | 2017-09-04 13:30 | CT ---
EXAMINATION TYPE: CT chest w con DATE OF EXAM: 09/04/2017 COMPARISON: CT chest February 28, 2016 and older studies HISTORY: follow up to esophageal CA originally diagnosed and treated 2010. CT DLP: 133.6 mGycm. Automated Exposure Control for Dose Reduction was Utilized. TECHNIQUE: CT scan of the thorax is performed following with IV Contrast, patient injected with 100 mL of Isovue 300. FINDINGS: LUNGS: Slightly elevated left hemidiaphragm is redemonstrated. There is persistent stable mild right apical pleural/parenchymal scarring . The lungs are grossly clear, there is no concerning parenchymal mass or nodule identified. There is no pleural effusion or pneumothorax seen. The tracheobronchia l tree is patent. MEDIASTINUM: There are no greater than 1 cm hilar or mediastinal lymph nodes. No cardiomegaly or pe ricardial effusion is seen. Surgical changes from total esophagectomy and gastric pull-up procedure are redemonstrated. OTHER: There are persistent simple appearing cysts scattered throughout the right kidney. There is lo bulation with cortical scarring and cortical calcifications in the left kidney redemonstrated. There are calcifications and atrophy of the right adrenal gland redemonstrated. IMPRESSION: No suspicious new mass or adenopathy is seen to suggest neoplastic recurrence.
== END | disposition home or self-care (01) ==
LOC: RADCTMAIN 09:35
PROVIDERS: ATTEND Internal Medicine Hematology & Oncology
DX: C15.9 Malignant neoplasm of esophagus, unspecified (principal)
CPT/HCPCS: 71260; Q9967

== ENCOUNTER → 2018-09-09 | Outpatient (CLI) | payer BC ==
--- NOTE | 2018-09-09 09:36 | CT ---
EXAMINATION TYPE: CT chest w con DATE OF EXAM: 09/09/2018 COMPARISON: 09/04/2017 HISTORY: Follow up esophogeal cancer CT DLP: 114.1 mGycm. Automated Exposure Control for Dose Reduction was Utilized. TECHNIQUE: CT scan of the thorax is performed following with IV Contrast, patient injected with 100 mL of Isovue 300. FINDINGS: LUNGS: There is minimal biapical pleural parenchymal scarring, right greater than left. Scarring is s een at the right costophrenic angle and compressive atelectasis medially within the right lower lobe from the gastric pull-through. Very mild centrilobular emphysematous change is predominantly apical. Metallic foreign body or surgical device is present along the posterior lateral pleural surface on im age 25. This is stable from the prior. There is a similar-appearing opacity medially along the left lung base on soft tissue algorithm no fo arjun nodule or mass is seen. The lungs are grossly clear, there is no concerning parenchymal mass or n odule identified. There is no pleural effusion or pneumothorax seen. The tracheobronchial tree is patent. MEDIASTINUM: There are no greater than 1 cm hilar or mediastinal lymph nodes. No pericardial effusi on is seen. Mild coronary artery calcifications are evident. Trace pericardial effusion is noted. Ga stric pull-through has been performed with fluid seen to the level of the thoracic inlet. Aspiration precautions are recommended. OTHER: Approximately 3.5 cm right renal cyst appears bilobed and is partially visualized with its sup erior component measuring up to 3.8 cm. Additional renal cyst measures 2.5 cm. There is multifocal co rtical renal thinning on the left and wedge-shaped hypoattenuated areas with the thin cortical rim si gn indicative of prior infarcts. Nonobstructing 6 mm calculus is also seen in dystrophic calcificatio ns of the upper pole. Findings are similar to the prior. Extensive mural plaquing of the infrarenal a bdominal aorta is present. Calcifications of the right adrenal gland are unchanged from prior injury. Thickening of the left adrenal gland is also similar to the prior particularly within the isthmus. M ild hepatic steatosis is noted, limiting evaluation for hepatic masses. The liver is incompletely vis ualized. IMPRESSION: 1. Gastric pull-through with fluid level of the gastric inlet, aspiration precautions are recommended . No new mediastinal adenopathy, pleural effusion, pulmonary nodule, or paraesophageal mass to sugges t recurrence. Surveillance with PET CT could also be considered. 2. Similar appearing consolidation along the medial left lung base, likely sequela of the gastric pul l-through and surrounding atelectasis. Attention on follow-up exams. 3. 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
== END | disposition home or self-care (01) ==
LOC: RADCTMAIN 08:50
PROVIDERS: ATTEND Internal Medicine Hematology & Oncology
DX: C15.9 Malignant neoplasm of esophagus, unspecified (principal); Z88.6 Allergy status to analgesic agent
CPT/HCPCS: 71260; Q9967

== ENCOUNTER 2018-10-09 08:10 | Day surgery (SDC) | payer BC ==
[2018-10-07 13:28] VITALS: BMI 19.2
[2018-10-09 08:48] VITALS: TEMP 98.4
[2018-10-09] MEDS ORDERED: PROPOFOL 10 MG/ML 20 ML VIAL IV ONE (09:15)
[2018-10-09] MEDS ORDERED: LIDOCAINE 1% INJ 10MG/ML (20 ML MDV) ONE (09:15)
--- NOTE | 2018-10-09 09:29 | P.PCN ---
Date of Procedure: 10/09/18 Procedure(s) Performed: BRIEF HISTORY: Patient is a 53-year-old, pleasant, female, scheduled for an upper endoscopy as a part of evaluation of progressive weight loss of 10 pounds in the last 6 months duration. She was diagnosed with esophageal cancer 8 years ago and is status post distal esophagectomy. She remains on Protonix 40 mg daily for several years.. PROCEDURE PERFORMED: Esophagogastroduodenoscopy with biopsy. PREOPERATIVE DIAGNOSIS: History of esophageal cancer status post esophagectomy 8 years ago/progressive weight loss. IV sedation per anesthesia. PROCEDURE: After informed consent was obtained, the patient was brought into the endoscopy unit. IV sedation was administered by Anesthesia under continuous monitoring. Initially the Olympus GIF-140 video endoscope was inserted into the mouth. Esophagus intubated without any difficulty. It was gradually advanced into the anastomosis which was located at 22 cm from the incisors. The scope was advanced into the stomach and duodenum and carefully examined. The bulb and the second part of the duodenum appeared normal. The scope at this time was withdrawn to the stomach, adequately insufflated with air, and upon careful examination, mucosa of the antrum, body, appeared normal. There was small amount of retained food in the stomach. The scope was then withdrawn into the esophagus. The GE anastomosis was located at 22 cm from the incisors which appeared widely patent. There were 3 segments of Wadsworth's-appearing because e xtending at least 1 cm proximal to the anastomosis and biopsies were done from this area. The proximal esophagus appeared normal. There were no erosions or ulcerations seen and the patient tolerated the procedure well. IMPRESSION: 1. Patent GE anastomosis at 22 cm from the incisors. 2. Wadsworth's esophagus proximal to the GE anastomosis. 3. Small amount of retained food in the stomach. RECOMMENDATIONS: The findings of this examination were discussed with the patient as well as her family. She was advised to follow with the biopsy results. She will continue with Protonix 40 mg daily and have a repeat upper endoscopy in 2 years.
[2018-10-09 10:08] VITALS: BP 99/66; PULSE 92; RESP 18
== END 2018-10-09 10:30 | disposition home or self-care (01) ==
LOC: ORWHC2ENDO 08:10
PROVIDERS: ATTEND Internal Medicine Gastroenterology
DX: K22.10 Ulcer of esophagus without bleeding (principal); K29.50 Unspecified chronic gastritis without bleeding; Z85.01 Personal history of malignant neoplasm of esophagus; Z90.49 Acquired absence of other specified parts of digestive tract; Z88.6 Allergy status to analgesic agent; Z88.8 Allergy status to other drugs, medicaments and biological substances; Z79.899 Other long term (current) drug therapy
CPT/HCPCS: 88305; 43239; J2001; J2704

== ENCOUNTER 2018-11-30 12:01 | Emergency (ER) | payer BC ==
[2018-11-30 12:09] VITALS: TEMP 98.6
[2018-11-30] MEDS ORDERED: ACET/COD 300 MG/30 MG STARTER PACK 6 TAB BTL PO STA (12:30)
--- NOTE | 2018-11-30 12:31 | ED ---
General Adult HPI - General Chief complaint: ENT Stated complaint: Ear Infection Time Seen by Provider: 11/30/18 12:11 Source: patient, RN notes reviewed Mode of arrival: ambulatory Limitations: no limitations - History of Present Illness Initial comments: Patient is a pleasant 53-year-old female presenting to the emergency Department with complaints of right ear discomfort. Patient states she does use Q-tips. Onset of symptoms was around 4 days ago. Patient did see her doctor and was prescribed amoxicillin and some sort of otic drops. Patient is unclear what this was as she did not bring the bottle. Patient complains of discomfort of the right ear, especially with movement. Patient has some decreased hearing. Patient requests work note. - Related Data Home Medications Medication Instructions Recorded Confirmed Ofloxacin 0.3% Otic Soln [Floxin 5 drops RIGHT EAR BID 11/30/18 11/30/18 0.3% Otic Soln] Previous Rx's Medication Instructions Recorded Xneyxfvo-Pgajuznjd-Hw Otic 4 drops RIGHT EAR QID #15 ml 11/30/18 [Cortisporin Otic Soln] Allergies Allergy/AdvReac Type Severity Reaction Status Date / Time aspirin AdvReac Abdominal Verified 11/30/18 12:19 Pain STERIODS AdvReac CHEST Uncoded 11/30/18 12:09 TIGHTNESS Review of Systems ROS Statement: Those systems with pertinent positive or pertinent negative responses have been documented in the HPI. ROS Other: All systems not noted in ROS Statement are negative. Constitutional: Denies: fever Eyes: Denies: eye pain ENT: Reports: as per HPI, ear pain Respiratory: Denies: cough Cardiovascular: Denies: chest pain Endocrine: Denies: fatigue Gastrointestinal: Denies: abdominal pain Genitourinary: Denies: dysuria Musculoskeletal: Denies: back pain Skin: Denies: rash Neurological: Denies: weakness Past Medical History Past Medical History: Cancer, GERD/Reflux, Osteoarthritis (OA) Additional Past Medical History / Comment(s): hx of esophageal cancer 2010-had chemo & radiation prior to surg, shingles, hx of bleeding ulcer. History of Any Multi-Drug Resistant Organisms: None Reported Past Surgical History: Section, Orthopedic Surgery, Tubal Ligation Additional Past Surgical History / Comment(s): surg. for fx. pelvis @age of 16, had most of esophagus & 1/3 of stomach removed @[facility] Past Anesthesia/Blood Transfusion Reactions: No Reported Reaction Past Psychological History: Anxiety, Depression Smoking Status: Current every day smoker Past Alcohol Use History: None Reported Past Drug Use History: Marijuana - Past Family History Sister(s) Family Medical History: Deep Vein Thrombosis (DVT) Mother Family Medical History: Deep Vein Thrombosis (DVT) General Exam Limitations: no limitations General appearance: alert, in no apparent distress Head exam: Present: normocephalic Eye exam: Present: normal appearance ENT exam: Present: normal oropharynx, TM's normal bilaterally, other (Right external canal with swelling, mild erythema. Tenderness with your movement.) Respiratory exam: Present: normal lung sounds bilaterally Cardiovascular Exam: Present: regular rate, normal rhythm GI/Abdominal exam: Present: soft. Absent: tenderness Course Vital Signs 11/30/18 12:07 Temperature 98.6 F Pulse Rate 113 H Respiratory 18 Rate Blood Pressure 126/76 O2 Sat by Pulse 98 Oximetry Medical Decision Making - Medical Decision Making Patient is advised to present prescription to pharmacist and ensure this is a different medication. If this is the same medication patient is advised to have pharmacist call right away to provide different medication. Disposition Clinical Impression: Otitis externa Disposition: HOME SELF-CARE Condition: Stable Instructions (If sedation given, give patient instructions): Otitis Externa (ED) Additional Instructions: Please present prescription to pharmacist. Have pharmacist ensure this is not the same prescription as previously given and call if it is. Please follow-up with primary care physician in the beginning of the week for recheck. Return for increased pain, increased swelling, loss of hearing, fevers, worsening symptoms or other concerns. Prescriptions: Smcoiwpf-Mdlwpjvns-Dv Otic [Cortisporin Otic Soln] 4 drops RIGHT EAR QID #15 ml Is patient prescribed a controlled substance at d/c from ED?: No Referrals: Jose Ramriez MD [Primary Care Provider] - 1-2 days Time of Disposition: 12:31
[2018-11-30 12:48] VITALS: BP 106/78; PULSE 110; RESP 16
== END 2018-11-30 12:48 | disposition home or self-care (01) ==
LOC: EC 12:01
DX: H60.91 Unspecified otitis externa, right ear (principal); F17.200 Nicotine dependence, unspecified, uncomplicated; Z88.6 Allergy status to analgesic agent; Z88.8 Allergy status to other drugs, medicaments and biological substances; Z85.01 Personal history of malignant neoplasm of esophagus; Z92.3 Personal history of irradiation
CPT/HCPCS: 99282

== ENCOUNTER → 2018-12-17 | Outpatient (CLI) | payer BC ==
--- NOTE | 2018-12-17 16:09 | CT ---
EXAMINATION TYPE: CT iac wo con DATE OF EXAM: 12/17/2018 COMPARISON: None HISTORY: Otalgia CT DLP: 142.70 mGycm. Automated Exposure Control for Dose Reduction was Utilized. TECHNIQUE: CT scan of internal auditory canal is performed without contrast, thin cut axial images ar e obtained, coronal reformatted images are also reviewed. FINDINGS: The external auditory canals are patent bilaterally. The middle ear ossicles are symmetric and unremarkable. The scutum is preserved bilaterally. The cochlea and the semicircular canals are symmetric and unremarkable. Vestibular aqueduct and internal carotid canal appear unremarkable. Temporomandibular joints are maintained bilaterally. Visualized paranasal sinuses are grossly clear. Visualized portion brain parenchyma is felt within normal limits. There may be some minimal fluid wi thin the posterior inferior right mastoid air cells. No septal destruction is evident. Mastoid air ce lls are otherwise clear bilaterally. IMPRESSION: 1. Normal-appearing temporal bone study. 2. Very minimal fluid within right mastoid air cells may be present.
== END | disposition home or self-care (01) ==
LOC: RADCTMAIN 07:48
PROVIDERS: ATTEND Otolaryngology
DX: H92.09 Otalgia, unspecified ear (principal)
CPT/HCPCS: 70480

== ENCOUNTER 2019-11-25 08:56 | Day surgery (SDC) | payer BC ==
[2019-11-23 14:10] VITALS: BMI 19.2
[~2019-11-25 08:56] MED LIST changes: +LIDOCAINE 1% (10MG/ML) FOR IV START INTRADERMA PRN
[2019-11-25 09:26] VITALS: TEMP 97.3
[2019-11-25] MEDS ORDERED: LIDOCAINE 1% INJ 10MG/ML (20 ML MDV) ONE (09:59)
[2019-11-25] MEDS ORDERED: PROPOFOL 10 MG/ML 20 ML VIAL IV ONE (09:59)
--- NOTE | 2019-11-25 10:25 | P.PCN ---
Date of Procedure: 11/25/19 Procedure(s) Performed: Brief history: Patient is a pleasant 54-year-old white female scheduled for an elective upper endoscopy as well as colonoscopy as a part of surveillance of prior history of esophageal cancer for which she underwent esophagectomy in 2011. In clinical remission. Lately has been having some periumbilical abdominal pain. She also has prior history of colon polyps and hence scheduled for colonoscopy today. Procedure performed: Esophagogastroduodenoscopy with biopsy Colonoscopy Preoperative diagnosis: History of esophageal cancer Chronic abdominal pain History of colon polyps Anesthesia: MAC Procedure: After informed consent was obtained from the patient was brought into the endoscopy unit and IV sedation was administered by anesthesia under continuous monitoring. Initially upper endoscopy was done. The Olympus GF 160 video endoscope was inserted inserted into the mouth and esophagus intubated without any difficulty and was anastomosis was located at 20 cm from the incisors. The scope was gradually advanced into the stomach and duodenum and carefully ex amined. The bulb and second part of the duodenum appeared normal. The scope was then withdrawn into the stomach adequately insufflated with air and upon careful examination the antrum and body, s appeared normal. The scope was then withdrawn into the esophagus. The GE anastomosis was located at 20 cm from the anal verge and there was a short segment of Wadsworth's esophagus identified just proximal to the anastomosis which was biopsied.. Rest of the esophagus appeared normal. Patient tolerated the procedure well. At this time the patient continued to remain sedation. Initial digital rectal examination was normal. Olympus CF 160 video colonoscope was then inserted into the rectum and gradually advanced to the cecum without any difficulty. Careful examination was performed as the scope was gradually being withdrawn. The prep was excellent. The cecum, ascending colon, transverse colon, descending colon, sigmoid colon and rectum appeared normal. Retroflexion was performed in the rectum and no lesions were noted. Patient tolerated the procedure well. 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 2. Colonoscopy was within normal limits with no evidence of colorectal neoplasia Recommendations: Findings of this examination were discussed with the patient as well as her family. She was advised to follow with the biopsy results. If the biopsies revealed Wadsworth's esophagus he can have a repeat upper endoscopy in 2 years. She can have a repeat colonoscopy in 5 years because of the prior history of colon polyps
[2019-11-25 10:40] VITALS: RESP 16
[2019-11-25 11:05] VITALS: BP 112/74; PULSE 90
== END 2019-11-25 11:28 | disposition home or self-care (01) ==
LOC: ORWHC2ENDO 08:56
PROVIDERS: ATTEND Internal Medicine Gastroenterology
DX: R10.33 Periumbilical pain (principal); K22.70 Barrett's esophagus without dysplasia; K21.9 Gastro-esophageal reflux disease without esophagitis; Z86.010 Personal history of colon polyps; Z98.0 Intestinal bypass and anastomosis status; F17.200 Nicotine dependence, unspecified, uncomplicated; G89.29 Other chronic pain; Z85.01 Personal history of malignant neoplasm of esophagus; Z92.21 Personal history of antineoplastic chemotherapy; Z92.3 Personal history of irradiation; Z79.899 Other long term (current) drug therapy; Z88.6 Allergy status to analgesic agent; Z88.8 Allergy status to other drugs, medicaments and biological substances
CPT/HCPCS: 88305; 45378; 43239; J2001; J2704

== ENCOUNTER → 2020-03-17 | Outpatient (CLI) | payer BC ==
--- NOTE | 2020-03-18 14:21 | MM ---
Reason for exam: screening (asymptomatic). Last mammogram was performed 3 years and 2 months ago. History: Patient is postmenopausal and has history of other cancer at age 45. Family history of premenopausal breast cancer in aunt at age 40 and premenopausal breast cancer in aunt at age 46. Benign right mammotome panel of the right breast, September 09, 2009. Took hormonal contraceptives for 5 years beginning at age 14. Physical Findings: A clinical breast exam by your physician is recommended on an annual basis and results should be correlated with mammographic findings. MG Screening Mammo w CAD Bilateral CC and MLO view(s) were taken. Prior study comparison: January 18, 2017, left breast MG work up mamm w CAD LT. January 04, 2017, bilateral MG screening mammo w CAD. The breast tissue is heterogeneously dense. This may lower the sensitivity of mammography. There is chronic nodularity in the left breast. There is no discrete abnormality. No significant changes when compared with prior studies. ASSESSMENT: Benign, BI-RAD 2 RECOMMENDATION: Routine screening mammogram of both breasts in 1 year.
== END | disposition home or self-care (01) ==
LOC: RADMAMWWP 08:05
PROVIDERS: ATTEND Internal Medicine Hematology & Oncology
DX: Z12.31 Encounter for screening mammogram for malignant neoplasm of breast (principal)
CPT/HCPCS: 77067

== ENCOUNTER → 2020-05-03 | Outpatient (CLI) | payer BC ==
[2020-05-03 09:16] LABS: Basophils # (A) 0.1 k/uL (0-0.2); Basophils % (A) 2 %; Eosinophils # (A) 0.2 k/uL (0-0.7); Eosinophils % (A) 4 %; HCT 32.7 % (34.0-46.0); HGB 10.5 gm/dL (11.4-16.0); Lymphocytes # (A) 1.2 k/uL (1.0-4.8); Lymphocytes % (A) 22 %; MCH 28.3 pg (25.0-35.0); MCHC 32.2 g/dL (31.0-37.0); MCV 87.8 fL (80.0-100.0); Mean Platelet Volume 6.5; Monocytes # (A) 0.4 k/uL (0-1.0); Monocytes % (A) 7 %; Neutrophils # (A) 3.6 k/uL (1.3-7.7); Neutrophils % (A) 65 %; Platelet Count 493 k/uL (150-450); RBC 3.72 m/uL (3.80-5.40); RDW 14.9 % (11.5-15.5); WBC 5.6 k/uL (3.8-10.6)
[2020-05-03 09:24] LABS: Appearance,Urine Cloudy (Clear); Bacteria,Urine Occasional /hpf; Bilirubin,Urine Negative (Negative); Blood,Urine Moderate (Negative); Color,Urine Yellow; Glucose,Urine (UA) 3+ (Negative); Hyaline Casts,Urine 4 /lpf (0-2); Ketones,Urine Negative (Negative); Leukocyte Esterase,Urine Large (Negative); Mucus,Urine Few /hpf; Nitrite,Urine Positive (Negative); Protein,Urine 1+ (Negative); RBC,Urine 98 /hpf (0-5); Specific Gravity,Urine 1.014 (1.001-1.035); Squamous Epithelial Cell,Urine 3 /hpf (0-4); Urobilinogen,Urine <2.0 mg/dL (<2.0); WBC,Urine 141 /hpf (0-5)
[2020-05-03 09:37] LABS: Albumin 4.1 g/dL (3.5-5.0); Calcium 9.6 mg/dL (8.4-10.2); Potassium 4.3 mmol/L (3.5-5.1); Total Bilirubin 0.3 mg/dL (0.2-1.3); Total Protein 8.3 g/dL (6.3-8.2)
--- NOTE | 2020-05-03 13:08 | XR ---
EXAMINATION TYPE: XR chest 2V DATE OF EXAM: 05/03/2020 COMPARISON: 05/11/2016 INDICATION: Presurgical clearance TECHNIQUE: Frontal and lateral views of the chest are obtained. FINDINGS: The heart size is normal. The pulmonary vasculature is normal. The lungs are clear. Surgical suture and clips are present. No significant interval change is eviden t. IMPRESSION: 1. No acute pulmonary process.
== END | disposition home or self-care (01) ==
LOC: LABPAT 08:32
PROVIDERS: ATTEND Urology
DX: Z01.812 Encounter for preprocedural laboratory examination (principal); N20.0 Calculus of kidney
CPT/HCPCS: 36415; 71046; 80053; 81001; 85025; 86850; 86900; 86901; 87077; 87086; 87186

== ENCOUNTER 2020-05-11 06:10 | Day surgery (SDC) | payer BC ==
[2020-05-05 10:58] VITALS: BMI 18.8
--- NOTE | 2020-05-10 09:43 | P.GSHP ---
History of Present Illness H&P Date: 05/10/20 55 yo female with recurrent uti and a full branched staghorn calculous on the right SHe comes for a right pcnl SHe understands the risks, complications and alternatives. due to the large bulk of stone she understands the possible need for multiple procedures. she was offered referral to [facility]. - Constitutional Constitutional: Denies chills, Denies fever - EENT Eyes: denies blurred vision, denies pain Ears, nose, mouth and throat: Denies headache, Denies sore throat - Cardiovascular Cardiovascular: Denies chest pain, Denies shortness of breath - Respiratory Respiratory: Denies cough, Denies 7 - Gastrointestinal Gastrointestinal: Denies abdominal pain, Denies diarrhea, Denies nausea, Denies vomiting - Genitourinary (Female) Genitourinary: Denies dysuria, Denies hematuria - Genitourinary (Male) Genitourinary: Denies dysuria, Denies hematuria - Musculoskeletal Musculoskeletal: Denies myalgias - Integumentary Integumentary: Denies pruritus, Denies rash - Neurological Neurological: Denies numbness, Denies weakness - Psychiatric Psychiatric: Denies anxiety, Denies depression - Endocrine Endocrine: Denies fatigue, Denies weight change Past Medical History Past Medical History: Cancer, GERD/Reflux, Osteoarthritis (OA) Additional Past Medical History / Comment(s): hx of esophageal cancer 2010-had chemo & radiation prior to surgery- ("fast heart rate since radiation tx") shingles, hx of bleeding ulcer. "fist size kidney stones in rt kidney", on antibioitcs for UTI, past hx kidney stones History of Any Multi-Drug Resistant Organisms: None Reported Past Surgical History: Section, Orthopedic Surgery, Tubal Ligation Additional Past Surgical History / Comment(s): surg. for fx. pelvis @age of 16, had most of esophagus & 1/3 of stomach removed @[facility] for cancer , C/S x2, nephrostolithotomy, hemorrhoidectomy Past Anesthesia/Blood Transfusion Reactions: No Reported Reaction Additional Past Anesthesia/Blood Transfusion Reaction / Comment(s): previous blood transfusion without reaction Smoking Status: Current every day smoker - Past Family History Sister(s) Family Medical History: Deep Vein Thrombosis (DVT) Mother Family Medical History: Deep Vein Thrombosis (DVT) Medications and Allergies Home Medications Medication Instructions Recorded Confirmed Type Pantoprazole Sodium [Protonix] 40 mg PO 1500 11/23/19 05/05/20 History Acetaminophen [Tylenol Extra 500 mg PO DIRECTED PRN 05/05/20 05/05/20 History Strength] Ciprofloxacin HCl [Cipro] 500 mg PO DAILY 05/05/20 05/05/20 History Allergies Allergy/AdvReac Type Severity Reaction Status Date / Time aspirin AdvReac Abdominal Verified 05/05/20 10:45 Pain steroids AdvReac chest Uncoded 05/05/20 10:45 tightness Surgical - Exam - General well developed, well nourished, no distress - Eyes PERRL - ENT no hearing loss - Neck no masses - Respiratory normal expansion, normal respiratory effort - Cardiovascular Rhythm: regular - Abdomen Abdomen: soft, non tender - Integumentary no rash, no growths - Neurologic normal coordination, normal sensation - Musculoskeletal normal gait, normal posture - Psychiatric oriented to time, oriented to person, oriented to place, memory intact Results - Imaging CT scan - abdomen: report reviewed, image reviewed CT scan - pelvis: report reviewed, image reviewed Assessment and Plan Assessment: Impression: RIght staghorn calculous Plan: Right PCNL
[~2020-05-11 06:10] MED LIST changes: +AMPICILLIN 1,000 MG in SODIUM CHLORIDE 0.9% 50 ML IVPB PRN; +DEXAMETHASONE SOD PHOSPHATE 4 MG/ML 1 ML VIAL IV ONE; +GENTAMICIN 70 MG in SODIUM CHLORIDE 0.9% 100 ML IVPB PRN; -LIDOCAINE 1% (10MG/ML) FOR IV START INTRADERMA PRN; +ONDANSETRON 4 MG/2 ML VIAL IVP ONE
[2020-05-11] MEDS ORDERED: ROCURONIUM 10 MG/ML (5 ML VIAL) IV ONE (07:25)
[2020-05-11] MEDS ORDERED: PHENYLEPHRINE-0.9% NACL SYG 1,000 MCG/10 ML SYRINGE ONE (07:25)
[2020-05-11] MEDS ORDERED: PROPOFOL 10 MG/ML 20 ML VIAL IV ONE (07:25)
[2020-05-11] MEDS ORDERED: GLYCOPYRROLATE 0.2 MG/ML 2 ML VIAL ONE (07:25)
[2020-05-11] MEDS ORDERED: SUCCINYLCHOLINE CHLORIDE 100 MG/5 ML SYR IV ONE (07:25)
[2020-05-11] MEDS ORDERED: MIDAZOLAM 2 MG/2 ML VIAL ONE (07:25)
[2020-05-11] MEDS ORDERED: fentaNYL (PF) 50 MCG/ML 2 ML AMP ONE (07:25)
[2020-05-11] MEDS ORDERED: NEOSTIGMINE 1 MG/ML 10 ML VIAL ONE (07:25)
[2020-05-11] MEDS ORDERED: LIDOCAINE 1% INJ 10MG/ML (20 ML MDV) ONE (07:25)
--- NOTE | 2020-05-11 07:39 | XR ---
EXAMINATION TYPE: XR KUB DATE OF EXAM: 05/11/2020 HISTORY: Pain Comparison: None.Single KUB is submitted for interpretation. Findings: Right renal calculi: Large right-sided staghorn calculus measuring 5.9 x 4.5 cm. Multiple additional right-sided renal calculi noted measuring up to 1.6 cm. Right ureteral calculi: None Visualized. Left renal calculi: None Visualized. Left ureteral calculi: Approximately 4 left-sided renal calculi noted the largest within the upper p ole measures 1.6 cm. Pelvic calcifications: None Visualized. Bowel gas pattern is unremarkable. No free air. No mass effects. IMPRESSION: 1. Bilateral nephrolithiasis.
[2020-05-11] MEDS ORDERED: IOPAMIDOL-370 50ML BTL MISCELLANE ONE (07:46)
[2020-05-11] MEDS ORDERED: LACTATED RINGERS 1,000 ML IV ONE (09:43)
[2020-05-11] MEDS ORDERED: ONDANSETRON 4 MG/2 ML VIAL IVP ONE (10:21)
[2020-05-11] MEDS ORDERED: ACETAMINOPHEN TAB 500 MG TAB PO PRN (10:24)
[2020-05-11] MEDS ORDERED: ONDANSETRON 4 MG/2 ML VIAL IVP PRN (10:24)
[2020-05-11] MEDS ORDERED: MAG HYDROX/AL HYDROX/SIMETH 30 ML CUP PO PRN (10:24)
[2020-05-11] MEDS ORDERED: HYDROmorphone PCA 10 MG/50 ML BAG IV PRN (10:25)
[2020-05-11] MEDS ORDERED: NALOXONE 0.4 MG/ML 1 ML VIAL IV PRN (10:25)
[2020-05-11] MEDS: HYDROmorphone 0.5 MG/0.5 ML SYRINGE IVP PRN ×4 (10:30→11:13)
--- NOTE | 2020-05-11 10:31 | P.OP ---
Date of Procedure: 05/11/20 Preoperative Diagnosis: Infected Staghorn calculus right Postoperative Diagnosis: Same Procedure(s) Performed: Cystoscopy, placement of occluding balloon catheter right, percutaneous nephrostomy placement (Dr. lundy), percutaneous nephrostolithotomy with ultrasound, placement of 12 J nephrostomy Anesthesia: TESSY Surgeon: Franko Oneal Estimated Blood Loss (ml): 50 Pathology: other (Stone) Condition: stable Disposition: PACU Indications for Procedure: The patient is 55. She has had recurring urinary infections that are asymptomatic. Evaluation identified a full branch staghorn, greater than 5 cm in the right kidney with multiple satellite stones. Scuffs the diagnosis t reatment options alternatives. She comes for percutaneous nephrostolithotomy. She is on culture specific antibiotics preoperatively Description of Procedure: The patient is brought to the operating suite. She is given a general endotracheal anesthesia on the transport gurney. She's placed in a frog position with a sterile prep and drape. Cystoscopy Foroblique lens and 21- Mozambican sheath identifies a right ureteral orifice which was intubated with a 5- Mozambican occluding balloon catheter passed up into the renal pelvis. The cystoscope was removed it is secured to a 16-Mozambican Garcia catheter which is placed in the bladder. The patient is placed in a prone position with care to airways and extremities. Dr. lundy of radiology performed percutaneous access to an upper pole calyx. After adequate placement of his wires we then dilate the tract to 30-Mozambican in place and working sheath into the collecting system. The very large stone is seen. With ultrasound the stone is tediously fractured and suctioned out or grasp it. The outer portion of the stone is infected the inner portion of the stone appears to be more calcium. After remove the huge renal pelvic stone and its branches I then pass the flexible scope throughout the collecting system removing smaller satellite stones with basketing or pulling the stones into the renal pelvis and breaking them up with ultrasound. At the end of the procedure I looked throughout the collecting system see no remaining stone. I looked down the UPJ and remove any fragments. I then pass over the working wire 12-Mozambican J nephrostomy tube the coils in the renal pelvis and its position is confirmed fluoroscopically. It is secured the skin with 2-0 silk. The patient awake and returned recovery in good condition. The urine is pink. The blood loss is about 50 mL. She'll be in place in the hospital postoperatively.
--- NOTE | 2020-05-11 11:22 | FL ---
EXAMINATION TYPE: FL Perc Nephrostomy New Access DATE OF EXAM: 05/11/2020 COMPARISON: NONE HISTORY: Right percutaneous nephrolithotomy Procedure had been discussed with the patient by Dr. Oneal, risks, benefits, alternatives, were dis cussed and any questions were answered. Informed consent was obtained. The patient was in a semipro ne position prepped and draped on the OR table in the usual sterile fashion. Utilizing a 15 cm lengt h Chiba needle a single pass was made into a mid pole posterior calyx under fluoroscopic guidance. A n 0.018 guidewire is passed through the needle and there was placement of a 6-Chilean catheter sheath system. There was conversion to a 0.035 system was performed with passage of a guidewire into the u reter utilizing a directional catheter. A second safety wire was placed. Remaining portion of proce dure performed by . Approximately 5 minutes and 59 seconds of fluoroscopy was provided. IMPRESSION: 1. Successful intraoperative right nephrostomy prior to nephrolithotomy.
[2020-05-11] MEDS: DEXTROSE 5%-0.45% NACL 1,000 ML IV SCH ×2 (12:00→20:52)
[2020-05-11] MEDS: AMOXICILLIN 500 MG CAP PO SCH ×2 (14:22→20:09)
[2020-05-11] MEDS: PANTOPRAZOLE 40 MG TABLET PO SCH (15:33)
[2020-05-11] MEDS: ACETAMINOPHEN TAB 325 MG TAB PO PRN ×2 (15:45→20:52)
[2020-05-12] MEDS: ACETAMINOPHEN TAB 325 MG TAB PO PRN (05:35)
[2020-05-12] MEDS: DEXTROSE 5%-0.45% NACL 1,000 ML IV SCH (05:36)
--- NOTE | 2020-05-12 06:56 | P.DS ---
Providers Attending physician: Franko Oneal Primary care physician: [facility] Course: The patient was admitted 05/07/20 for a right percutaneous nephrostolithotomy to a extremely large kidney stone. The stone was completely removed. She did well overnight. Her blood pressure slightly low. Her urine output is good. She feels well. She is ambulating. She is afebrile. DC her IV fluids and her Garcia. If her pain is under control and her blood pressure is stable she'll be discharged home later today. Follow-up in the office next week for nephrostomy tube removal. She will be given a prescription of [place]. She has amoxicillin at home. Her vital signs are stable. Her condition is good. Patient Condition at Discharge: Good Plan - Discharge Summary Discharge Rx Participant: Yes New Discharge Prescriptions: New HYDROcodone/APAP 5-325MG [[place] 5-325] 1 tab PO Q4HR PRN #10 tab PRN Reason: Pain No Action Pantoprazole Sodium [Protonix] 40 mg PO 1500 Acetaminophen [Tylenol Extra Strength] 500 mg PO DIRECTED PRN PRN Reason: Pain Amoxicillin 500 mg PO PC-TID Discharge Medication List Pantoprazole Sodium [Protonix] 40 mg PO 1500 11/23/19 [History] Acetaminophen [Tylenol Extra Strength] 500 mg PO DIRECTED PRN 05/05/20 [History] Amoxicillin 500 mg PO PC-TID 05/11/20 [History] HYDROcodone/APAP 5-325MG [[place] 5-325] 1 tab PO Q4HR PRN #10 tab 05/12/20 [Rx] Follow up Appointment(s)/Referral(s): Franko Oneal MD [STAFF PHYSICIAN] - 05/16/20 Patient Instructions/Handouts: Kidney Stones (GEN), Percutaneous Nephrolithotomy (DC) Discharge Disposition: HOME SELF-CARE
[2020-05-12] MEDS: AMOXICILLIN 500 MG CAP PO SCH ×2 (07:51→13:32)
[2020-05-12 08:57] VITALS: RESP 16
[2020-05-12] MEDS: HYDROcodone/APAP 5-325MG 1 EACH TAB PO PRN ×2 (10:38→14:59)
[2020-05-12 14:42] VITALS: BP 95/60; PULSE 105; TEMP 98.6
[2020-05-12] MEDS: PANTOPRAZOLE 40 MG TABLET PO SCH (14:59)
== END 2020-05-12 15:52 | disposition home or self-care (01) ==
LOC: OR 06:10 → 6PED 10:16 → OR 05-12 15:52
PROVIDERS: ATTEND Urology
DX: N20.0 Calculus of kidney (principal); K21.9 Gastro-esophageal reflux disease without esophagitis; M19.90 Unspecified osteoarthritis, unspecified site; Z85.01 Personal history of malignant neoplasm of esophagus; Z92.21 Personal history of antineoplastic chemotherapy; Z92.3 Personal history of irradiation; Z87.11 Personal history of peptic ulcer disease; Z87.442 Personal history of urinary calculi; R00.0 Tachycardia, unspecified; Z98.891 History of uterine scar from previous surgery; Z98.51 Tubal ligation status; Z98.890 Other specified postprocedural states; Z90.49 Acquired absence of other specified parts of digestive tract; Z86.19 Personal history of other infectious and parasitic diseases; Z87.891 Personal history of nicotine dependence; Z82.49 Family history of ischemic heart disease and other diseases of the circulatory system; Z97.2 Presence of dental prosthetic device (complete) (partial); Z79.899 Other long term (current) drug therapy; Z88.6 Allergy status to analgesic agent; Z88.8 Allergy status to other drugs, medicaments and biological substances; F41.9 Anxiety disorder, unspecified
CPT/HCPCS: 82365; 50432; 74018; 50081; C1769 ×4; C2628; C1729 ×2; C1894; J2250; J1100; J2710; J2405; J2001; J3010; J1580; J0290; J2370; J0330; J2704; J1170 ×2; Q9967; 86850; 86900; 86901

== ENCOUNTER → 2020-09-14 | Outpatient (CLI) | payer BC ==
[2020-09-14 09:16] LABS: Basophils # (A) 0.1 k/uL (0-0.2); Basophils % (A) 2 %; Eosinophils # (A) 0.2 k/uL (0-0.7); Eosinophils % (A) 4 %; HCT 39.9 % (34.0-46.0); Lymphocytes # (A) 1.7 k/uL (1.0-4.8); Lymphocytes % (A) 33 %; MCH 28.7 pg (25.0-35.0); MCHC 32.7 g/dL (31.0-37.0); Monocytes # (A) 0.3 k/uL (0-1.0); Monocytes % (A) 6 %; Neutrophils # (A) 2.7 k/uL (1.3-7.7); Neutrophils % (A) 53 %; Platelet Count 259 k/uL (150-450); RBC 4.54 m/uL (3.80-5.40); RDW 15.7 % (11.5-15.5); WBC 5.1 k/uL (3.8-10.6)
[2020-09-14 09:27] LABS: Albumin 4.8 g/dL (3.5-5.0); Calcium 10.1 mg/dL (8.4-10.2); Potassium 4.2 mmol/L (3.5-5.1); Total Bilirubin 0.5 mg/dL (0.2-1.3); Total Protein 8.5 g/dL (6.3-8.2)
[2020-09-14 09:51] LABS: Appearance,Urine Clear (Clear); Bacteria,Urine Many /hpf; Bilirubin,Urine Negative (Negative); Blood,Urine Negative (Negative); Color,Urine Light Yellow; Glucose,Urine (UA) Negative (Negative); Ketones,Urine Negative (Negative); Leukocyte Esterase,Urine Large (Negative); Nitrite,Urine Negative (Negative); Protein,Urine Negative (Negative); Specific Gravity,Urine 1.004 (1.001-1.035); Squamous Epithelial Cell,Urine <1 /hpf (0-4); Urobilinogen,Urine <2.0 mg/dL (<2.0); WBC,Urine 24 /hpf (0-5)
== END | disposition home or self-care (01) ==
LOC: LABPAT 08:18
PROVIDERS: ATTEND Urology
DX: Z01.812 Encounter for preprocedural laboratory examination (principal); N20.0 Calculus of kidney; R31.29 Other microscopic hematuria
CPT/HCPCS: 36415; 80053; 81001; 85025; 86850; 86900; 86901; 87077; 87086; 87186

== ENCOUNTER 2020-09-21 07:45 | Observation (INO) | payer BC ==
[2020-09-16 13:55] VITALS: BMI 19.3
--- NOTE | 2020-09-20 19:03 | P.GSHP ---
History of Present Illness H&P Date: 09/20/20 55 yo female with bilateral infected renal stones. She underwent a rt pcnl 04/2020 that liberated her right kidney of stone. she now comes for a left pcnl to remove the large infected left renal stones. Past Medical History Past Medical History: Cancer, GERD/Reflux, Osteoarthritis (OA) Additional Past Medical History / Comment(s): hx of esophageal cancer 2010-had chemo & radiation prior to surg, shingles, hx of bleeding ulcer, kidney stones History of Any Multi-Drug Resistant Organisms: None Reported Past Surgical History: Section, Orthopedic Surgery, Tubal Ligation Additional Past Surgical History / Comment(s): surg. for fx. pelvis @age of 16, had most of esophagus & 1/3 of stomach removed @[facility] for cancer , C/S x2, nephrostolithotomy, hemorrhoidectomy. 05/11/2020 Right percutaneous nephrolitotomy with nephro tube insertion. Past Anesthesia/Blood Transfusion Reactions: No Reported Reaction Additional Past Anesthesia/Blood Transfusion Reaction / Comment(s): previous blood transfusion without reaction Smoking Status: Current every day smoker - Past Family History Sister(s) Family Medical History: Deep Vein Thrombosis (DVT) Mother Family Medical History: Deep Vein Thrombosis (DVT) Medications and Allergies Home Medications Medication Instructions Recorded Confirmed Type Pantoprazole Sodium [Protonix] 40 mg PO 1500 11/23/19 09/16/20 History Allergies Allergy/AdvReac Type Severity Reaction Status Date / Time aspirin AdvReac Abdominal Verified 09/16/20 13:47 Pain steroids AdvReac chest Uncoded 09/16/20 13:47 tightness Surgical - Exam - General well developed, well nourished - Eyes PERRL - ENT no hearing loss - Neck no masses, trachea midline - Respiratory normal expansion, normal respiratory effort - Cardiovascular Rhythm: regular - Abdomen Abdomen: soft, non tender - Integumentary no rash, no growths - Neurologic normal coordination, normal sensation - Musculoskeletal normal gait, normal posture - Psychiatric oriented to time, oriented to person, oriented to place, speech is normal, memory intact Results - Imaging CT scan - abdomen: report reviewed, image reviewed CT scan - pelvis: report reviewed, image reviewed Assessment and Plan Assessment: Impression: Left renal stones, large, infected Plan: PCNL left
[~2020-09-21 07:45] MED LIST changes: -GENTAMICIN 70 MG in SODIUM CHLORIDE 0.9% 100 ML IVPB PRN; +GENTAMICIN 80 MG in SODIUM CHLORIDE 0.9% 100 ML IVPB PRN
[2020-09-21] MEDS ORDERED: LIDOCAINE 1% (10MG/ML) FOR IV START INTRADERMA ONE (08:27)
--- NOTE | 2020-09-21 08:45 | XR ---
EXAMINATION TYPE: XR KUB DATE OF EXAM: 09/21/2020 COMPARISON: 05/11/2020 INDICATION: Renal stones TECHNIQUE: Single view abdomen frontal projection FINDINGS: There is a normal bowel gas pattern. Psoas margins are normal. No organomegaly is present. There is a 2.0 x 1.1 cm calcification the right kidney. There is a 1.5 x 1.2 cm calcification in the upper pole left kidney. Additional 0.5 cm calcification is in the midportion. Small 0.3 cm calcification is along the medial right upper kidney IMPRESSION: 1. Bilateral renal stones discussed
[2020-09-21] MEDS ORDERED: PHENYLEPHRINE-0.9% NACL SYG 1,000 MCG/10 ML SYRINGE ONE (09:36)
[2020-09-21] MEDS ORDERED: fentaNYL (PF) 50 MCG/ML 2 ML AMP ONE (09:36)
[2020-09-21] MEDS ORDERED: MIDAZOLAM 2 MG/2 ML VIAL ONE (09:36)
[2020-09-21] MEDS ORDERED: GLYCOPYRROLATE 0.2 MG/ML 2 ML VIAL ONE (09:36)
[2020-09-21] MEDS ORDERED: PROPOFOL 10 MG/ML 20 ML VIAL IV ONE (09:36)
[2020-09-21] MEDS ORDERED: ROCURONIUM 10 MG/ML (5 ML VIAL) IV ONE (09:36)
[2020-09-21] MEDS ORDERED: NEOSTIGMINE 1 MG/ML 10 ML VIAL ONE (09:36)
[2020-09-21] MEDS ORDERED: SUCCINYLCHOLINE CHLORIDE 100 MG/5 ML SYR IV ONE (09:36)
[2020-09-21] MEDS ORDERED: LIDOCAINE 1% INJ 10MG/ML (20 ML MDV) ONE (09:36)
[2020-09-21] MEDS ORDERED: IOPAMIDOL-370 50ML BTL MISCELLANE ONE (09:54)
[2020-09-21] MEDS ORDERED: ACETAMINOPHEN TAB 325 MG TAB PO PRN (10:59)
[2020-09-21] MEDS ORDERED: ONDANSETRON 4 MG/2 ML VIAL IVP PRN (10:59)
[2020-09-21] MEDS ORDERED: MAG HYDROX/AL HYDROX/SIMETH 30 ML CUP PO PRN (10:59)
[2020-09-21] MEDS ORDERED: NALOXONE 0.4 MG/ML 1 ML VIAL IV PRN (11:00)
[2020-09-21] MEDS ORDERED: HYDROmorphone PCA 10 MG/50 ML BAG IV PRN (11:00)
[2020-09-21] MEDS ORDERED: ONDANSETRON 4 MG/2 ML VIAL ONE (11:03)
[2020-09-21] MEDS ORDERED: ONDANSETRON 4 MG/2 ML VIAL IVP ONE (11:05)
--- NOTE | 2020-09-21 11:05 | P.OP ---
Date of Procedure: 09/21/20 Preoperative Diagnosis: Infected left renal stones, large Postoperative Diagnosis: Same Procedure(s) Performed: Cystoscopy, placement of occluding balloon catheter left, percutaneous nephrostomy (Dr. holguin), percutaneous nephrostolithotomy with ultrasound, placement of 10-South Sudanese J nephrostomy Anesthesia: TESSY Surgeon: Franko Oneal Estimated Blood Loss (ml): 50 Pathology: other (Stone) Condition: stable Disposition: PACU Indications for Procedure: Patient is 55. She has recurrent urine infection. She had a large right staghorn calculus removed percutaneously couple months ago. She now comes for the left side. The stone volume is greater than 2 cm Description of Procedure: Patient brought to the operating suite. She given general anesthesia. She's placed in a frog position on the transport gurney in a sterile prep and drape. Cystoscopy Foroblique lens and 21-South Sudanese sheath identifies a left ureteral orifice which is intubated and the occluding balloon catheters passed up into the proximal ureter. It is secured to a 16-South Sudanese Garcia after the cystoscope was removed The patient's placed in a prone position. Dr. Holguin of radiology after sterile prep and drape performed percutaneous access to the left lower pole calyx where there is a 7 mm stone. We then dilate the tract to 30-South Sudanese. Introduced the rigid sheath into the collecting system and gravity 7 mm stone. This another stone in the collecting system identified and grasped. I then pass the scope into the renal pelvis where the large stone was identified. It requires ultrasound to break down. The stone is approximately 2 cm. The stone was broken into smaller pieces and grasped and removed. I then looked throughout the collecting system and remove any smaller fragments up. I passed the flexible nephroscope throughout the collecting system see no remaining stones. A 10 J nephrostomy tube was placed over the working wire and coils in the renal pelvis. It is secured to the skin with 2-0 silk. The patient awake and returned recovery in good condition. Tell her procedure well blood loss about 50 mL. She'll be kept in the hospital overnight. In addition is good.
--- NOTE | 2020-09-21 11:13 | FL ---
EXAMINATION TYPE: FL Perc Nephrostomy New Access DATE OF EXAM: 09/21/2020 COMPARISON: NONE HISTORY: Left percutaneous intraoperative nephrolithotomy Procedure had been discussed with the patient by Dr. Oneal, risks, benefits, alternatives, were dis cussed and any questions were answered. Informed consent was obtained. The patient was in a semipro ne position prepped and draped on the OR table in the usual sterile fashion. Utilizing a 15 cm lengt h Chiba needle a single pass was made into a lower pole posterior calyx under fluoroscopic guidance. An 0.018 guidewire is passed through the needle and there was placement of a 6-Irish catheter sheat h system. There was conversion to a 0.035 system was performed with passage of a guidewire into the ureter utilizing a directional catheter. A second safety wire was placed. Remaining portion of pro cedure performed by . Approximately 10 and 32 seconds of fluoroscopy was provided. 6 image s submitted. IMPRESSION: 1. Successful intraoperative left nephrostomy prior to nephrolithotomy.
[2020-09-21] MEDS: HYDROmorphone 0.5 MG/0.5 ML SYRINGE IVP PRN ×4 (11:16→11:59)
[2020-09-21] MEDS: KETOROLAC 15 MG/ML 1 ML VIAL IVP PRN (11:16)
[2020-09-21] MEDS: DEXTROSE 5%-0.45% NACL 1,000 ML IV SCH ×2 (12:56→21:15)
[2020-09-21] MEDS: PANTOPRAZOLE 40 MG TABLET PO SCH (13:13)
[2020-09-21] MEDS ORDERED: SODIUM CHLORIDE 0.9% 500 ML 500 ML IV ONE (15:32)
[2020-09-21] MEDS: CEPHALEXIN 500 MG CAP PO SCH (19:45)
--- NOTE | 2020-09-22 07:11 | P.PN ---
Subjective Progress Note Date: 09/22/20 The patient is in her first postoperative day from a left percutaneous nephrostolithotomy to a large infected kidney stone. She did relatively well overnight. She did require bolus of fluid. Urine output adequate. She is still somewhat sore. She has not eaten a lot nor ambulated. She is not ready to go home. She'll be cared for again today with IV fluids and parental pain medication. I will discontinue the Garcia. She'll ambulate. I anticipate discharge tomorrow. Objective - Vital Signs Vital signs: Vital Signs Temp 97.8 F 09/22/20 01:08 Pulse 80 09/22/20 01:08 Resp 18 09/22/20 01:08 BP 98/67 09/22/20 01:08 Pulse Ox 100 09/22/20 01:08 Intake & Output 09/21/20 09/22/20 09/22/20 18:59 06:59 18:59 Intake Total 3467 1200 Output Total 655 2490 Balance 2812 -1290 Weight 46.4 kg Intake: IV 1727 Intake, IV Titration 500 1200 Amount Dextrose 5%-0.45% NaCl 1, 1200 000 ml @ 100 mls/hr IV . Q10H [facility] Rx#:[id number] Sodium Chloride 0.9% 500 500 ml 500 ml @ 500 mls/hr IV .Q1H [facility] Rx#:[id number] Oral 1240 Output: Drainage 80 840 Left Back 80 840 Urine 525 1650 Estimated Blood Loss 50 Other: Voiding Method Indwelling Catheter Indwelling Catheter
[2020-09-22] MEDS: CEPHALEXIN 500 MG CAP PO SCH ×2 (08:16→20:51)
[2020-09-22] MEDS: KETOROLAC 15 MG/ML 1 ML VIAL IVP PRN ×3 (09:35→20:49)
[2020-09-22] MEDS: PANTOPRAZOLE 40 MG TABLET PO SCH (15:17)
[2020-09-22] MEDS: DEXTROSE 5%-0.45% NACL 1,000 ML IV SCH (17:53)
[2020-09-23] MEDS: DEXTROSE 5%-0.45% NACL 1,000 ML IV SCH (02:26)
[2020-09-23] MEDS: KETOROLAC 15 MG/ML 1 ML VIAL IVP PRN ×2 (02:27→08:02)
[2020-09-23] MEDS: CEPHALEXIN 500 MG CAP PO SCH (07:52)
--- NOTE | 2020-09-23 07:52 | P.DS ---
Providers Date of admission: 09/21/20 18:12 Attending physician: Franko Oneal Primary care physician: Stated None Hospital Course: The patient is 55. She has a history of infected renal calculi. She had a right percutaneous nephrostolithotomy a couple months ago for a very large kidney stone. 2 days ago she had a left percutaneous nephrostolithotomy for large renal stones appear to be removed completely. Postoperatively she did well. Her pain was controlled. She remained afebrile. Urine output is good. The nephrostomy tube urine is cleared. He is ready for discharge home. She'll be discharged home on regular diet limited activity. She'll be discharged home with the nephrostomy tube. She'll be seen in the office on Saturday for nephrostomy tube removal. She'll continue with antibiotics that she was taking at home. She is given a prescription of [place]. Diet is regular activities Limited. Condition is good. Patient Condition at Discharge: Good Plan - Discharge Summary Discharge Rx Participant: No New Discharge Prescriptions: New HYDROcodone/APAP 5-325MG [[place] 5-325] 1 tab PO Q4HR PRN #10 tab PRN Reason: Pain No Action Pantoprazole Sodium [Protonix] 40 mg PO 1500 Cephalexin [Keflex] 500 mg PO BID Discharge Medication List Pantoprazole Sodium [Protonix] 40 mg PO 1500 11/23/19 [History] Cephalexin [Keflex] 500 mg PO BID 09/21/20 [History] HYDROcodone/APAP 5-325MG [[place] 5-325] 1 tab PO Q4HR PRN #10 tab 09/23/20 [Rx] Follow up Appointment(s)/Referral(s): Franko Oneal MD [STAFF PHYSICIAN] - 09/26/20 (Nephrostomy tube removal) Discharge Disposition: HOME SELF-CARE
[2020-09-23 08:37] VITALS: BP 134/83; PULSE 92; RESP 18; TEMP 97.5
== END 2020-09-23 09:59 | disposition home or self-care (01) ==
LOC: OR 07:45 → 6PED 10:48 → OR 18:19
PROVIDERS: ADMIT Urology; ATTEND Urology
DX: N20.0 Calculus of kidney (principal); N20.1 Calculus of ureter; N39.0 Urinary tract infection, site not specified; F17.200 Nicotine dependence, unspecified, uncomplicated; K21.9 Gastro-esophageal reflux disease without esophagitis; M19.90 Unspecified osteoarthritis, unspecified site; Z79.899 Other long term (current) drug therapy; Z88.6 Allergy status to analgesic agent; Z88.8 Allergy status to other drugs, medicaments and biological substances; Z85.01 Personal history of malignant neoplasm of esophagus; Z87.442 Personal history of urinary calculi; Z86.19 Personal history of other infectious and parasitic diseases; Z87.11 Personal history of peptic ulcer disease; Z87.19 Personal history of other diseases of the digestive system; Z98.891 History of uterine scar from previous surgery; Z98.51 Tubal ligation status; Z83.2 Family history of diseases of the blood and blood-forming organs and certain disorders involving the immune mechanism
CPT/HCPCS: 50080; 50432; 86900; 86901; 86850; 82365; 74018; G0378 ×3; C1769 ×5; C1894; C1729; J2250; J1100; J2710; J2405; J2001; J3010; J1580; J0290; J1885 ×3; J2370; J0330; J2704; J1170 ×2; Q9967

== ENCOUNTER 2020-12-06 12:34 | Emergency (ER) | payer BC ==
[2020-12-06] MEDS ORDERED: MORPHINE SULFATE 2 MG/ML SYRINGE IVP STA (12:40)
[2020-12-06] MEDS ORDERED: SODIUM CHLORIDE 0.9% 1,000 ML IV STA (12:40)
[2020-12-06] MEDS ORDERED: ONDANSETRON 4 MG/2 ML VIAL IVP STA (12:40)
[2020-12-06 13:13] LABS: Basophils # (A) 0.1 k/uL (0-0.2); Basophils % (A) 1 %; Eosinophils # (A) 0.2 k/uL (0-0.7); Eosinophils % (A) 2 %; HCT 43.7 % (34.0-46.0); HGB 14.2 gm/dL (11.4-16.0); Lymphocytes # (A) 2.6 k/uL (1.0-4.8); Lymphocytes % (A) 31 %; MCH 28.9 pg (25.0-35.0); MCHC 32.6 g/dL (31.0-37.0); MCV 88.7 fL (80.0-100.0); Mean Platelet Volume 7.2; Monocytes # (A) 0.5 k/uL (0-1.0); Monocytes % (A) 6 %; Neutrophils # (A) 4.8 k/uL (1.3-7.7); Neutrophils % (A) 58 %; Platelet Count 305 k/uL (150-450); RBC 4.93 m/uL (3.80-5.40); WBC 8.3 k/uL (3.8-10.6)
--- NOTE | 2020-12-06 13:37 | US ---
EXAMINATION TYPE: US gallbladder DATE OF EXAM: 12/06/2020 COMPARISON: NONE CLINICAL HISTORY: 55-year-old female RUQ pain. TECHNIQUE: Multiple sonographic images of the right upper quadrant are obtained. FINDINGS: EXAM MEASUREMENTS: Liver Length: 12.3 cm Gallbladder Wall: 0.2 cm CBD: 0.5 cm Right Kidney: 10.9 x 5.7 x 6.8 cm Pancreas: Only small portions of the pancreatic body are seen. The majority is obscured by bowel gas shadowing. Liver: wnl Gallbladder: wnl Evidence for sonographic Bowens's sign: No CBD: wnl Right Kidney: 2 cysts upper pole, largest measures 4.3 x 4.2 x 3.5 cm. Stone lower pole measures 1.3 x 1.4 x 1.6 cm. No hydronephrosis. IMPRESSION: 1. Suboptimal visualization of the pancreas. No gallstones or biliary ductal dilatation. 2. A couple benign cysts in the right kidney measuring up to 4.3 cm. 3. Right lower pole renal calculus measures up to 1.6 cm. No hydronephrosis.
[2020-12-06 13:39] LABS: Albumin 4.7 g/dL (3.5-5.0); Calcium 10.1 mg/dL (8.4-10.2); Potassium 4.3 mmol/L (3.5-5.1); Total Bilirubin 0.4 mg/dL (0.2-1.3); Total Protein 8.8 g/dL (6.3-8.2)
--- NOTE | 2020-12-06 13:56 | ED ---
Abdominal Pain HPI - General Chief Complaint: Shortness of Breath Stated Complaint: abd pain Time Seen by Provider: 12/06/20 12:40 Source: patient, RN notes reviewed Mode of arrival: ambulatory Limitations: no limitations - History of Present Illness Initial Comments: Patient is a 55-year-old female that presents to the emergency department complaining of right upper quadrant abdominal pain. She notes she was evaluated at [facility] and got a call same to come emergency room for possible gallstones. Patient was in no apparent distress or pain while sitting up in bed in exam interview. She noted that she had mild tenderness right upper quadrant and epigastric area. She'll that she does have a history of kidney infections and kidney problems. She notes that she is ever had any issues with her gallbladder. She denied any chest pain shortness of breath headache nausea vomiting diarrhea constipation fever fatigue chills. - Related Data Home Medications Medication Instructions Recorded Confirmed Pantoprazole Sodium [Protonix] 40 mg PO DAILY 11/23/19 12/06/20 Ciprofloxacin HCl [Cipro] 500 mg PO Q12HR 12/06/20 12/06/20 Famotidine 20 mg PO HS 12/06/20 12/06/20 Previous Rx's Medication Instructions Recorded Tamsulosin [Flomax] 0.4 mg PO DAILY #7 cap 12/06/20 Allergies Allergy/AdvReac Type Severity Reaction Status Date / Time aspirin AdvReac Abdominal Verified 12/06/20 13:30 Pain steroids AdvReac chest Uncoded 12/06/20 12:43 tightness Review of Systems ROS Statement: Those systems with pertinent positive or pertinent negative responses have been documented in the HPI. ROS Other: All systems not noted in ROS Statement are negative. Past Medical History Past Medical History: Cancer, GERD/Reflux, Osteoarthritis (OA) Additional Past Medical History / Comment(s): hx of esophageal cancer 2010-had chemo & radiation prior to surg, shingles, hx of bleeding ulcer. History of Any Multi-Drug Resistant Organisms: None Reported Past Surgical History: Section, Orthopedic Surgery, Tubal Ligation Additional Past Surgical History / Comment(s): surg. for fx. pelvis @age of 16, had most of esophagus & 1/3 of stomach removed @[facility] for cancer , C/S x2, nephrostolithotomy, hemorrhoidectomy. 05/11/2020 Right percutaneous nephrolitotomy with neprho tube insertion. Past Anesthesia/Blood Transfusion Reactions: No Reported Reaction Additional Past Anesthesia/Blood Transfusion Reaction / Comment(s): previous blood transfusion without reaction Past Psychological History: Anxiety, Depression Smoking Status: Current every day smoker Past Alcohol Use History: None Reported Past Drug Use History: Marijuana - Past Family History Sister(s) Family Medical History: Deep Vein Thrombosis (DVT) Mother Family Medical History: Deep Vein Thrombosis (DVT) General Exam Limitations: no limitations General appearance: alert, in no apparent distress Head exam: Present: atraumatic, normocephalic, normal inspection Eye exam: Present: normal appearance, PERRL, EOMI. Absent: scleral icterus, conjunctival injection, periorbital swelling ENT exam: Present: normal exam, mucous membranes moist Neck exam: Present: normal inspection Respiratory exam: Present: normal lung sounds bilaterally. Absent: respiratory distress, wheezes, rales, rhonchi, stridor Cardiovascular Exam: Present: regular rate, normal rhythm, normal heart sounds. Absent: systolic murmur, diastolic murmur, rubs, gallop, clicks GI/Abdominal exam: Present: soft, tenderness (Right upper quadrant minimal.), normal bowel sounds. Absent: distended, guarding, rebound, rigid Extremities exam: Present: normal inspection, full ROM, normal capillary refill. Absent: tenderness, pedal edema, joint swelling, calf tenderness Neurological exam: Present: alert, oriented X3 Psychiatric exam: Present: normal affect, normal mood Skin exam: Present: warm, dry, intact, normal color. Absent: rash Course Vital Signs 12/06/20 12:35 Temperature 98.5 F Pulse Rate 116 H Respiratory 18 Rate Blood Pressure 145/86 O2 Sat by Pulse 98 Oximetry Medical Decision Making - Medical Decision Making 55-year-old female sent by [facility] for evaluation for possible gallstones. Labs, ultrasound of gallbladder 2 mg of morphine, 4 mg Zofran ordered. Labs unremarkable. Ultrasound shows a right full nephrolithiasis, no gallstones. Patient was informed of her results of imaging and labs it is agreeable with discharge home with conservative management with an control for kidney stone. Case discussed with Dr. Villa, patient discharge home. - Lab Data Result diagrams: 12/06/20 13:00 12/06/20 13:00 Lab Results 12/06/20 12/06/20 Range/Units 13:00 13:00 WBC 8.3 (3.8-10.6) k/uL RBC 4.93 (3.80-5.40) m/uL Hgb 14.2 (11.4-16.0) gm/dL Hct 43.7 (34.0-46.0) % MCV 88.7 (80.0-100.0) fL MCH 28.9 (25.0-35.0) pg MCHC 32.6 (31.0-37.0) g/dL RDW 14.0 (11.5-15.5) % Plt Count 305 (150-450) k/uL MPV 7.2 Neutrophils % 58 % Lymphocytes % 31 % Monocytes % 6 % Eosinophils % 2 % Basophils % 1 % Neutrophils # 4.8 (1.3-7.7) k/uL Lymphocytes # 2.6 (1.0-4.8) k/uL Monocytes # 0.5 (0-1.0) k/uL Eosinophils # 0.2 (0-0.7) k/uL Basophils # 0.1 (0-0.2) k/uL Sodium 138 (137-145) mmol/L Potassium 4.3 (3.5-5.1) mmol/L Chloride 105 (98-107) mmol/L Carbon Dioxide 23 (22-30) mmol/L Anion Gap 10 mmol/L BUN 19 H (7-17) mg/dL Creatinine 0.84 (0.52-1.04) mg/dL Est GFR (CKD-EPI)AfAm 89 (>60 ml/min/1.73 sqM) Est GFR (CKD-EPI)NonAf 77 (>60 ml/min/1.73 sqM) Glucose 125 H (74-99) mg/dL Calcium 10.1 (8.4-10.2) mg/dL Total Bilirubin 0.4 (0.2-1.3) mg/dL AST 24 (14-36) U/L ALT 12 (4-34) U/L Alkaline Phosphatase 133 H (38-126) U/L Total Protein 8.8 H (6.3-8.2) g/dL Albumin 4.7 (3.5-5.0) g/dL Amylase 90 (30-110) U/L Lipase 190 (23-300) U/L Disposition Clinical Impression: Right nephrolithiasis, Abdominal pain Disposition: HOME SELF-CARE Condition: Stable Instructions (If sedation given, give patient instructions): Kidney Stones (ED) Additional Instructions: Please return to the Emergency Department if symptoms worsen or any other concerns. Follow-up with primary care 1-2 days. Take Tylenol Motrin as needed for pain. Take Flomax as prescribed. Increase oral fluids. Is patient prescribed a controlled substance at d/c from ED?: No Referrals: None,Stated [Primary Care Provider] - 1-2 days Time of Disposition: 13:56
[2020-12-06 14:09] VITALS: BP 105/75; PULSE 86; RESP 16; TEMP 97.8
[2020-12-06 14:12] LABS: Appearance,Urine Cloudy (Clear); Bacteria,Urine Moderate /hpf; Bilirubin,Urine Negative (Negative); Blood,Urine Trace (Negative); Color,Urine Yellow; Glucose,Urine (UA) Negative (Negative); Hyaline Casts,Urine 1 /lpf (0-2); Ketones,Urine Negative (Negative); Leukocyte Esterase,Urine Large (Negative); Mucus,Urine Rare /hpf; Nitrite,Urine Positive (Negative); Protein,Urine Trace (Negative); RBC,Urine 5 /hpf (0-5); Specific Gravity,Urine 1.015 (1.001-1.035); Squamous Epithelial Cell,Urine 1 /hpf (0-4); Urobilinogen,Urine <2.0 mg/dL (<2.0); WBC,Urine 32 /hpf (0-5)
== END 2020-12-06 14:07 | disposition home or self-care (01) ==
LOC: EC 12:34
DX: N20.0 Calculus of kidney (principal); M19.90 Unspecified osteoarthritis, unspecified site; K21.9 Gastro-esophageal reflux disease without esophagitis; F17.200 Nicotine dependence, unspecified, uncomplicated; F41.9 Anxiety disorder, unspecified; F32.9 Major depressive disorder, single episode, unspecified; F12.90 Cannabis use, unspecified, uncomplicated
CPT/HCPCS: 36415; 80053; 82150; 83690; 85025; 81001; 87086; 76705; 99284; 96374; 96375; 96361; J2405; J2270

== ENCOUNTER → 2021-01-17 | Outpatient (CLI) | payer BC ==
--- NOTE | 2021-01-17 16:53 | XR ---
EXAMINATION TYPE: XR KUB DATE OF EXAM: 01/17/2021 COMPARISON: 09/21/2020 INDICATION: Renal calculus TECHNIQUE: Single view abdomen frontal projection FINDINGS: There is a normal bowel gas pattern. Psoas margins are normal. No organomegaly is present. Postsurgical changes are evident overlying the left abdomen and over the pubic symphysis. Previous left renal calcifications are not identified. Residual punctate calcification may be within the left renal pelvis measuring 0.4 cm. Calcification remains at the inferior pole right kidney measu ring 2.2 cm IMPRESSION: 1. Correlate for 0.4 cm right renal pelvic calcification. This may have been present previously. 2. Prior left renal calcifications are not identified. 3. Stable inferior right renal calcification.
== END | disposition home or self-care (01) ==
LOC: RADXRMAIN 07:54
PROVIDERS: ATTEND Urology
DX: N28.89 Other specified disorders of kidney and ureter (principal)
CPT/HCPCS: 74018

== ENCOUNTER → 2021-05-05 | Outpatient (CLI) | payer BC ==
--- NOTE | 2021-05-09 14:46 | MM ---
Reason for exam: screening (asymptomatic). Last mammogram was performed 1 year and 2 months ago. History: Patient is postmenopausal and has history of other cancer at age 45. Family history of premenopausal breast cancer in aunt at age 40 and premenopausal breast cancer in aunt at age 46. Benign right mammotome panel of the right breast, September 09, 2009. Took hormonal contraceptives for 5 years beginning at age 14. Physical Findings: A clinical breast exam by your physician is recommended on an annual basis and results should be correlated with mammographic findings. MG Screening Mammo w CAD Bilateral CC and MLO view(s) were taken. Prior study comparison: March 17, 2020, bilateral MG screening mammo w CAD. January 18, 2017, left breast MG work up mamm w CAD LT. The breast tissue is heterogeneously dense. This may lower the sensitivity of mammography. There are benign appearing round calcifications bilaterally. Previous mammotome biopsy in the right breast. There is no discrete abnormality. ASSESSMENT: Benign, BI-RAD 2 RECOMMENDATION: Routine screening mammogram of both breasts in 1 year.
== END | disposition home or self-care (01) ==
LOC: RADMAMWWP 07:34
PROVIDERS: ATTEND Family Medicine
DX: Z12.31 Encounter for screening mammogram for malignant neoplasm of breast (principal); Z78.0 Asymptomatic menopausal state; Z80.3 Family history of malignant neoplasm of breast
CPT/HCPCS: 77067

== ENCOUNTER 2021-05-09 08:21 | Day surgery (SDC) | payer BC ==
[2021-05-05 09:49] VITALS: BMI 19.0
[~2021-05-09 08:21] MED LIST changes: -AMPICILLIN 1,000 MG in SODIUM CHLORIDE 0.9% 50 ML IVPB PRN; -DEXAMETHASONE SOD PHOSPHATE 4 MG/ML 1 ML VIAL IV ONE; -GENTAMICIN 80 MG in SODIUM CHLORIDE 0.9% 100 ML IVPB PRN; +LIDOCAINE 1% (10MG/ML) FOR IV START INTRADERMA PRN; -ONDANSETRON 4 MG/2 ML VIAL IVP ONE
[2021-05-09 09:23] VITALS: RESP 16; TEMP 97.8
[2021-05-09] MEDS ORDERED: LIDOCAINE 1% INJ 10MG/ML (20 ML MDV) ONE (09:51)
[2021-05-09] MEDS ORDERED: PROPOFOL 10 MG/ML 20 ML VIAL IV ONE (09:51)
--- NOTE | 2021-05-09 10:09 | P.PCN ---
Date of Procedure: 05/09/21 Procedure(s) Performed: BRIEF HISTORY: Patient is a 56-year-old, pleasant, male for several months duration. She has history of esophageal cancer diagnosed in 2011 and underwent distal esophagectomy with gastric pull-through. Her last EGD was done in November 2019.. PROCEDURE PERFORMED: Esophagogastroduodenoscopy with biopsy. PREOPERATIVE DIAGNOSIS: History of esophageal cancer diagnosed in 2011 status post esophagectomy/severe GERD. IV sedation per anesthesia. PROCEDURE: After informed consent was obtained, the patient was brought into the endoscopy unit. IV sedation was administered by Anesthesia under continuous monitoring. Initially the Olympus GIF-140 video endoscope was inserted into the mouth. Esophagus intubated without any difficulty. The anastomosis was located at 20 cm from the incisors which was widely patent. The scope was gradually advanced into the stomach and duodenum and carefully examined. The bulb and the second part of the duodenum appeared normal. The scope at this time was withdrawn to the stomach, adequately insufflated with air, and upon careful examination, mucosa of the antrum, body, had retained food suggestive of gastroparesis. The scope was then withdrawn into the esophagus. The GE most was located at 20 cm from the incisors and was widely patent. There was Wadsworth's esophagus identified just proximal to the anastomosis exiting 1 cm proximally which was biopsied. There were no erosions or ulcerations seen and the patient tolerated the procedure well. IMPRESSION: 1. Evidence of distal esophagectomy with gastric pull-through. 2. Patent GE anastomosis. 3. Segment Wadsworth's esophagus at the anastomosis status post biopsy 4. Retained food in the stomach suggestive of gastroparesis RECOMMENDATIONS: The findings of this examination were discussed with the patient as well as a family. She was advised to follow with the biopsy results. She will increase the pantoprazole to 40 mg twice daily and follow antireflux measures. She was educated and small frequent meals.. Repeat EGD in 3 years
[2021-05-09 10:30] VITALS: BP 109/71; PULSE 100
== END 2021-05-09 10:50 | disposition home or self-care (01) ==
LOC: ORWHC2ENDO 08:21
PROVIDERS: ATTEND Internal Medicine Gastroenterology
DX: K21.9 Gastro-esophageal reflux disease without esophagitis (principal); K22.70 Barrett's esophagus without dysplasia; Z90.49 Acquired absence of other specified parts of digestive tract; Z85.01 Personal history of malignant neoplasm of esophagus; K31.A19 Gastric intestinal metaplasia without dysplasia, unspecified site; Z97.2 Presence of dental prosthetic device (complete) (partial); K63.89 Other specified diseases of intestine; Z79.899 Other long term (current) drug therapy; Z88.6 Allergy status to analgesic agent
CPT/HCPCS: 88305; 43239; J2001; J2704

== ENCOUNTER → 2022-06-06 | Outpatient (CLI) | payer BC ==
--- NOTE | 2022-06-06 12:08 | MM ---
Reason for Exam: Screening (asymptomatic). Last mammogram was performed 1 year(s) and 1 month(s) ago. Patient History: Menarche at age 11. First Full-Term at age 18. Postmenopausal. Other cancer, age 45. Hormonal Contraceptives for 5 years from age 14 until age 19. 09/09/2009, Benign Core Biopsy on the right side. Maternal aunt had breast cancer, age 40. Maternal aunt had breast cancer, age 46. Maternal cousin had breast cancer, age 40. Risk Values: Catherine 5 year model risk: 1.5%. NCI Lifetime model risk: 7.9%. Prior Study Comparison: 01/18/2017 Left Diagnostic Mammogram, [facility]. 03/17/2020 Bilateral Screening Mammogram, [facility]. 05/05/2021 Bilateral Screening Mammogram, [facility]. Tissue Density: The breast tissue is heterogeneously dense. This may lower the sensitivity of mammography. Findings: Analyzed By CAD. There is no suspicious group of microcalcifications or new suspicious mass in either breast. Benign round calcifications within both breasts. Previous mammotome biopsy within the right breast. Overall Assessment: Benign, BI-RAD 2 Management: Screening Mammogram of both breasts in 1 year. A clinical breast exam by your physician is recommended on an annual basis and results should be correlated with mammographic findings. Electronically signed and approved by: Himanshu Small D.O.
== END | disposition home or self-care (01) ==
LOC: RADMAMWWP 07:50
PROVIDERS: ATTEND Family Medicine
DX: Z12.31 Encounter for screening mammogram for malignant neoplasm of breast (principal); Z78.0 Asymptomatic menopausal state; Z80.3 Family history of malignant neoplasm of breast
CPT/HCPCS: 77067

== ENCOUNTER → 2022-09-13 | Outpatient (CLI) | payer BC ==
--- NOTE | 2022-09-13 14:58 | CT ---
EXAMINATION TYPE: CT brain wo con CT DLP: 1012.7 mGycm, Automated exposure control for dose reduction was used. DATE OF EXAM: 09/13/2022 12:37 PM COMPARISON: 12/17/2018 CT.. CLINICAL INDICATION:Female, 57 years old with history of R51.9, headaches TECHNIQUE: Brain: Axial CT images of the brain were obtained with coronal and sagittal reformats created and rev iewed. Contrast used: None. Oral contrast used: None. FINDINGS: Brain: Extra-axial spaces: No abnormal extra-axial fluid collections. Ventricular system: Within normal limits Cerebral parenchyma: No acute intraparenchymal hemorrhage or mass effect. The posey-white junction is well differentiated. Cerebellum: Unremarkable. Mass effect: No evidence of midline shift. Intracranial vasculature: Atherosclerotic calcifications of the intracranial vessels. Soft tissues: Normal. Calvarium/osseous structures: No depressed skull fracture. Paranasal sinuses and mastoid air cells: Mild scattered paranasal sinus disease. Visualized orbits: Orbital contents are intact. IMPRESSION: No acute intracranial process.
== END | disposition home or self-care (01) ==
LOC: RADCTMAIN 12:17
PROVIDERS: ATTEND Family Medicine
DX: R51.9 Headache, unspecified (principal)
CPT/HCPCS: 70450

== ENCOUNTER → 2022-10-10 | Outpatient (CLI) | payer BC ==
--- NOTE | 2022-10-10 09:04 | CT ---
EXAMINATION TYPE: CT chest wo con DATE OF EXAM: 10/10/2022 COMPARISON: 09/15/2018 HISTORY: Malignant neoplasm of esophagus. CT DLP: 118.[address] of the chest was performed with lung and mediastinal window settings submitted. The la ck of contrast limits evaluation of the vascular, mediastinal and parenchymal structures including th e upper abdomen. LUNGS: The lungs are clear and free of infiltrate. Proximal scarring is again noted adjacent to the l eft heart border unchanged from prior study. Mild COPD changes. Minimal upper lobe emphysematous lenz ge. Subpleural fibrosis right upper lobe small focal area. No atelectasis. No pulmonary nodule or ma ss is detected. No pleural effusion. No CT evidence of interstitial lung disease. MEDIASTINUM/AGUSTINA: Again noted is evidence of gastric pull-through procedure without evidence for rec urrent mass. Debris is noted within the distal pull-through component. Thoracic aorta is of normal ca liber with limited evaluation given lack of contrast. The heart is not enlarged. No evidence for me diastinal mass. No lymph nodes greater than 1cm. UPPER ABDOMEN: No significant abnormality is seen. OTHER: No significant other abnormality. IMPRESSION: 1. Stable postoperative changes of gastric pull-through procedure without evidence recurrent or resi dual mass. 2. Areas of parenchymal scarring and focal fibrosis right upper lobe.
== END | disposition home or self-care (01) ==
LOC: RADCTMAIN 08:12
PROVIDERS: ATTEND Internal Medicine Hematology & Oncology
DX: C15.9 Malignant neoplasm of esophagus, unspecified (principal); L90.5 Scar conditions and fibrosis of skin; J84.10 Pulmonary fibrosis, unspecified; Z98.890 Other specified postprocedural states
CPT/HCPCS: 71250

== ENCOUNTER 2023-01-05 02:54 | Emergency (ER) | payer BC ==
[2023-01-05 03:06] VITALS: TEMP 98.4
[2023-01-05] MEDS ORDERED: KETOROLAC 15 MG/ML 1 ML VIAL IVP STA (03:55)
[2023-01-05] MEDS ORDERED: SODIUM CHLORIDE 0.9% 1,000 ML IV STA (03:55)
[2023-01-05 04:41] LABS: Basophils # (A) 0.1 k/uL (0-0.2); Basophils % (A) 1 %; Eosinophils # (A) 0.1 k/uL (0-0.7); Eosinophils % (A) 2 %; HCT 40.9 % (34.0-46.0); HGB 13.6 gm/dL (11.4-16.0); Lymphocytes # (A) 1.3 k/uL (1.0-4.8); Lymphocytes % (A) 20 %; MCHC 33.2 g/dL (31.0-37.0); MCV 84.5 fL (80.0-100.0); Mean Platelet Volume 9.7; Monocytes # (A) 0.3 k/uL (0-1.0); Monocytes % (A) 5 %; Neutrophils # (A) 4.4 k/uL (1.3-7.7); Neutrophils % (A) 71 %; Platelet Count 159 k/uL (150-450); RBC 4.84 m/uL (3.80-5.40); RDW 14.1 % (11.5-15.5); WBC 6.2 k/uL (3.8-10.6)
[2023-01-05 04:54] LABS: ALT 16 U/L (4-34); AST 31 U/L (14-36); African American GFR (CKD) >90 (>60 ml/min/1.73 sqM); Alkaline Phosphatase 86 U/L (38-126); Anion Gap 12 mmol/L; Blood Urea Nitrogen 24 mg/dL (7-17); Calcium 10.1 mg/dL (8.4-10.2); Carbon Dioxide 23 mmol/L (22-30); Chloride 102 mmol/L (98-107); Glucose 106 mg/dL (74-99); Lipase 113 U/L (23-300); Non-African American GFR(CKD) 81 (>60 ml/min/1.73 sqM); Potassium 4.4 mmol/L (3.5-5.1); Sodium 137 mmol/L (137-145); Total Bilirubin 0.6 mg/dL (0.2-1.3)
--- NOTE | 2023-01-05 05:34 | ED ---
Abdominal Pain HPI - General Chief Complaint: Abdominal Pain Stated Complaint: Abdominal Pain, Pain when breathing Time Seen by Provider: 01/05/23 03:12 Source: patient Mode of arrival: ambulatory Limitations: no limitations - History of Present Illness Initial Comments: 57-year-old female presents to the emergency department reporting to right flank pain and right upper quadrant abdominal pain. States the pain started while she was at work today. States that she does have to over reach above her head and lifts heavy things. Pain is worse with positional changes and with taking a deep breath. Pain is relieved when she rests. She did not take anything for the pain. Denies associated nausea or vomiting. No fevers, chills or cough. Denies feeling short of breath. No numbness, tingling or weakness in her extremities. Denies any chest pain. Area is very sensitive to the touch. No alleviating, precipitating or modifying factors - Related Data Home Medications Medication Instructions Recorded Confirmed Pantoprazole Sodium [Protonix] 40 mg PO DAILY 11/23/19 05/09/21 Previous Rx's Medication Instructions Recorded HYDROcodone/APAP 7.5-325MG [[place] 1 tab PO Q6HR PRN 3 Days #12 tab 01/05/23 7.5-325] Allergies Allergy/AdvReac Type Severity Reaction Status Date / Time aspirin AdvReac Abdominal Verified 01/05/23 02:57 Pain steroids AdvReac chest Uncoded 01/05/23 02:57 tightness Review of Systems ROS Statement: Those systems with pertinent positive or pertinent negative responses have been documented in the HPI. ROS Other: All systems not noted in ROS Statement are negative. Past Medical History Past Medical History: Cancer, GERD/Reflux, Osteoarthritis (OA) Additional Past Medical History / Comment(s): hx of esophageal cancer 2010-had chemo & radiation prior to surg, shingles, hx of bleeding ulcer. History of Any Multi-Drug Resistant Organisms: ESBL Date of last positivie culture/infection: 12/06/20 MDRO Source:: ESBL URINE Past Surgical History: Section, Orthopedic Surgery, Tubal Ligation Additional Past Surgical History / Comment(s): surg. for fx. pelvis @age of 16, had most of esophagus & 1/3 of stomach removed @[facility] for cancer , C/S x2, nephrostolithotomy, hemorrhoidectomy. 05/11/2020 Right percutaneous nephrolitoto my with neprho tube insertion. Past Anesthesia/Blood Transfusion Reactions: No Reported Reaction Additional Past Anesthesia/Blood Transfusion Reaction / Comment(s): previous blood transfusion without reaction Past Psychological History: Anxiety, Depression Smoking Status: Current every day smoker Past Alcohol Use History: None Reported Past Drug Use History: Marijuana - Past Family History Sister(s) Family Medical History: Deep Vein Thrombosis (DVT) Mother Family Medical History: Deep Vein Thrombosis (DVT) General Exam Limitations: no limitations General appearance: alert, in no apparent distress Head exam: Present: atraumatic, normocephalic, normal inspection Eye exam: Present: normal appearance, PERRL, EOMI. Absent: scleral icterus, co njunctival injection, periorbital swelling ENT exam: Present: normal exam, mucous membranes moist Neck exam: Present: normal inspection. Absent: tenderness, meningismus, lymphadenopathy Respiratory exam: Present: normal lung sounds bilaterally, chest wall tenderness (To the right flank. No overlying ecchymosis). Absent: respiratory distress, wheezes, rales, rhonchi, stridor Cardiovascular Exam: Present: regular rate, normal rhythm, normal heart sounds. Absent: systolic murmur, diastolic murmur, rubs, gallop, clicks GI/Abdominal exam: Present: soft, normal bowel sounds. Absent: distended, tenderness, guarding, rebound, rigid Extremities exam: Present: normal inspection, full ROM, normal capillary refill. Absent: tenderness, pedal edema, joint swelling, calf tenderness Back exam: Present: normal inspection Neurological exam: Present: alert, oriented X3, CN II-XII intact Psychiatric exam: Present: normal affect, normal mood Skin exam: Present: warm, dry, intact, normal color. Absent: rash Course Vital Signs 01/05/23 01/05/23 01/05/23 02:55 04:09 05:26 Temperature 98.4 F Pulse Rate 124 H 97 102 H Respiratory 20 18 16 Rate Blood Pressure 158/93 117/80 104/70 O2 Sat by Pulse 98 98 98 Oximetry 01/05/23 01/05/23 07:00 08:18 Temperature Pulse Rate 102 H 58 L Respiratory 18 18 Rate Blood Pressure 120/75 111/78 O2 Sat by Pulse 100 99 Oximetry Medical Decision Making - Medical Decision Making Was pt. sent in by a medical professional or institution (TELMA Gaviria, PASSENGER ATTENDANT, urgent care, hospital, or longterm...) When possible be specific @ -No Did you speak to anyone other than the patient for history (EMS, parent, family, police, friend...)? What history was obtained from this source @ -No Did you review nursing and triage notes (agree or disagree)? Why? @ -I reviewed and agree with nursing and triage notes Were old charts reviewed (outside hosp., previous admission, EMS record, old EKG, old radiological studies, urgent care reports/EKG's, longterm records)? Report findings @ -No old charts were reviewed Differential Diagnosis (chest pain, altered mental status, abdominal pain women, abdominal pain men, vaginal bleeding, weakness, fever, dyspnea, syncope, headache, dizziness, GI bleed, back pain, seizure, CVA, palpatations, mental health, musculoskeletal)? @ -Differential Abdominal Pain Women: Appendicitis, Cholecystitis, diverticulosis, ischemic bowel, pancreatitis, hepatitis, UTI, gastroenteritis, AAA, incarcerated hernia, bowel obstruction, constipation, inflammatory bowel, hepatitis, peptic ulcer disease, splenic infarction, perforated viscus, vulvitis, ovarian torsion, PID, kidney stone, placenta abruption, this is not meant to be an all-inclusive list EKG interpreted by me (3pts min.). @ -Yes and demonstrates sinus tach with a rate of 103. NH interval 129. QRS 90. QTC 382. No acute ST segment elevations or depressions X-rays interpreted by me (1pt min.). @ -None done CT interpreted by me (1pt min.). @ -Yes and demonstrates no acute findings U/S interpreted by me (1pt. min.). @ -None done What testing was considered but not performed or refused? (CT, X-rays, U/S, labs)? Why? @ -None What meds were considered but not given or refused? Why? @ -None Did you discuss the management of the patient with other professionals (professionals i.e. TELMA Gaviria, PASSENGER ATTENDANT, lab, RT, psych nurse, social worker masters, tab card press operator, t eacher, flight deck officer, watch case polisher)? Give summary @ -No Was smoking cessation discussed for >3mins.? @ -No Was critical care preformed (if so, how long)? @ -No Were there social determinants of health that impacted care today? How? (Homelessness, low income, unemployed, alcoholism, drug addiction, transportation, low edu. Level, literacy, decrease access to med. care, mcc, rehab)? @ -No Was there de-escalation of care discussed even if they declined (Discuss DNR or withdrawal of care, Hospice)? DNR status @ -No What co-morbidities impacted this encounter? (DM, HTN, Smoking, COPD, CAD, Cancer, CVA, ARF, Chemo, Hep., AIDS, mental health diagnosis, sleep apnea, morbid obesity)? @ -History of esophageal cancer Was patient admitted / discharged? Hospital course, mention meds given and route, prescriptions, significant lab abnormalities, going to OR and other per tinent info. @ -Discharge. Upon arrival patient was placed into room 18. Thorough history and physical exam was performed. She is given a dose of Toradol. Labs were conducted. Patient goes for CT. Results are discussed with the patient. Patient will be discharged home. Instructed to rest, take pain medications as directed and follow-up with her doctor. Return for any new or worsening symptoms. Patient was agreeable plan and discharged in stable condition Undiagnosed new problem with uncertain prognosis? @ -Yes Drug Therapy requiring intensive monitoring for toxicity (Heparin, Nitro, Insulin, Cardizem)? @ -No Were any procedures done? @ -No Diagnosis/symptom? @ -Acute right flank pain, suspected musculoskeletal strain, history of esophageal cancer Acute, or Chronic, or Acute on Chronic? @ -Acute Uncomplicated (without systemic symptoms) or Complicated (systemic symptoms)? @ -Complicated Side effects of treatment? @ -No Exacerbation, Progression, or Severe Exacerbation? @ -No Poses a threat to life or bodily function? How? (Chest pain, [place], [place], pneumonia, PE, COPD, DKA, ARF, appy, cholecystitis, CVA, Diverticulitis, Homicidal, Suici henok, threat to staff... and all critical care pts) @ -No - Lab Data Result diagrams: 01/05/23 04:05 01/05/23 04:05 Lab Results 01/05/23 01/05/23 01/05/23 Range/Units 04:05 04:05 04:05 WBC 6.2 (3.8-10.6) k/uL RBC 4.84 (3.80-5.40) m/uL Hgb 13.6 (11.4-16.0) gm/dL Hct 40.9 (34.0-46.0) % MCV 84.5 (80.0-100.0) fL MCH 28.0 (25.0-35.0) pg MCHC 33.2 (31.0-37.0) g/dL RDW 14.1 (11.5-15.5) % Plt Count 159 (150-450) k/uL MPV 9.7 Neutrophils % 71 % Lymphocytes % 20 % Monocytes % 5 % Eosinophils % 2 % Basophils % 1 % Neutrophils # 4.4 (1.3-7.7) k/uL Lymphocytes # 1.3 (1.0-4.8) k/uL Monocytes # 0.3 (0-1.0) k/uL Eosinophils # 0.1 (0-0.7) k/uL Basophils # 0.1 (0-0.2) k/uL D-Dimer (<0.60) mg/L FEU Sodium 137 (137-145) mmol/L Potassium 4.4 (3.5-5.1) mmol/L Chloride 102 (98-107) mmol/L Carbon Dioxide 23 (22-30) mmol/L Anion Gap 12 mmol/L BUN 24 H (7-17) mg/dL Creatinine 0.80 (0.52-1.04) mg/dL Est GFR (CKD-EPI)AfAm >90 (>60 ml/min/1.73 sqM) Est GFR (CKD-EPI)NonAf 81 (>60 ml/min/1.73 sqM) Glucose 106 H (74-99) mg/dL Calcium 10.1 (8.4-10.2) mg/dL Total Bilirubin 0.6 (0.2-1.3) mg/dL AST 31 (14-36) U/L ALT 16 (4-34) U/L Alkaline Phosphatase 86 (38-126) U/L Troponin I 0.020 (0.000-0.034) ng/mL Total Protein 9.0 H (6.3-8.2) g/dL Albumin 5.0 (3.5-5.0) g/dL Lipase 113 (23-300) U/L 01/05/23 Range/Units 04:05 WBC (3.8-10.6) k/uL RBC (3.80-5.40) m/uL Hgb (11.4-16.0) gm/dL Hct (34.0-46.0) % MCV (80.0-100.0) fL MCH (25.0-35.0) pg MCHC (31.0-37.0) g/dL RDW (11.5-15.5) % Plt Count (150-450) k/uL MPV Neutrophils % % Lymphocytes % % Monocytes % % Eosinophils % % Basophils % % Neutrophils # (1.3-7.7) k/uL Lymphocytes # (1.0-4.8) k/uL Monocytes # (0-1.0) k/uL Eosinophils # (0-0.7) k/uL Basophils # (0-0.2) k/uL D-Dimer 0.58 (<0.60) mg/L FEU Sodium (137-145) mmol/L Potassium (3.5-5.1) mmol/L Chloride (98-107) mmol/L Carbon Dioxide (22-30) mmol/L Anion Gap mmol/L BUN (7-17) mg/dL Creatinine (0.52-1.04) mg/dL Est GFR (CKD-EPI)AfAm (>60 ml/min/1.73 sqM) Est GFR (CKD-EPI)NonAf (>60 ml/min/1.73 sqM) Glucose (74-99) mg/dL Calcium (8.4-10.2) mg/dL Total Bilirubin (0.2-1.3) mg/dL AST (14-36) U/L ALT (4-34) U/L Alkaline Phosphatase (38-126) U/L Troponin I (0.000-0.034) ng/mL Total Protein (6.3-8.2) g/dL Albumin (3.5-5.0) g/dL Lipase (23-300) U/L Disposition Clinical Impression: Right flank pain Disposition: HOME SELF-CARE Condition: Stable Instructions (If sedation given, give patient instructions): Flank Pain (ED) Additional Instructions: Rest, take the pain medications as directed. Follow up with your doctor and return for any new or worsening symptoms Prescriptions: HYDROcodone/APAP 7.5-325MG [[place] 7.5-325] 1 tab PO Q6HR PRN 3 Days #12 tab PRN Reason: Pain Is patient prescribed a controlled substance at d/c from ED?: Yes When asked, does pt state using other controlled substances?: No If prescribed controlled substance>3 days was MAPS reviewed?: Prescribed <3 Days If opioid is for acute pain is fill amount 7 days or less?: Yes Referrals: Roderick Mcnair DO [Primary Care Provider] - 1-2 days Time of Disposition: 07:49
[2023-01-05 07:21] VITALS: RESP 18
--- NOTE | 2023-01-05 07:25 | XR ---
EXAMINATION TYPE: XR chest 2V DATE OF EXAM: 01/05/2023 COMPARISON: 05/03/2020 HISTORY: 57 year-old female shortness of breath TECHNIQUE: PA and lateral views FINDINGS: Heart normal size. Mild interstitial prominence. Hyperinflation. Multiple embolization coils are pres ent along the posterior midline. No hernan consolidation or pleural effusion. IMPRESSION: COPD. Interstitial densities slightly increased. Consider superimposed bronchitis or asthma. No focal infiltrate seen.
--- NOTE | 2023-01-05 07:35 | CT ---
EXAMINATION TYPE: CT abdomen pelvis w con DATE OF EXAM: 01/05/2023 COMPARISON: 08/10/2014 HISTORY: 57-year-old female epigastric pain, history of esophageal cancer TECHNIQUE: Contiguous axial scanning of the abdomen and pelvis following administration of 100 ml Iso scott 300 IV contrast. Delayed images through the kidneys and coronal/sagittal reconstructions perform ed. CT DLP: 467.3 mGycm Automated exposure control for dose reduction was used. FINDINGS: Heart normal size without pericardial effusion. Lung bases clear without pleural effusion. There may be distal esophageal resection with partial gastric pull-through procedure. Approximately h retirement of the stomach remains within the lower chest. Prominent fluid within the portion of the stomach located in the lower chest. There may be some mild fold thickening in this region. The superior exten t of the gastric pull-through is outside the field of view. Small amount of focal fat along the anterior falciform ligament. No biliary ductal dilatation. Portal venous system is patent. Gallbladder, spleen, atrophic pancreas show no gross abnormality. Nodular thickening of the bilateral adrenal glands appears similar compared to the CT chest of 019. Right renal calculus is nonobstructive in the lower pole measuring 1.7 cm and has increased from 2015 . Dominant 4.7 cm right renal cyst. Second dominant 4.3 cm right renal cyst. Otherwise, numerous kemal tional small bilateral renal cortical cysts are present on both sides. Possible slight urothelial thickening on the left, refer to axial series 301 image 27. 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 No dilated small bowel, free fluid, or free air. No mesenteric or retroperitoneal lymphadenopathy magno ntified. Normal appendix. There is mild overall stool burden. Circumferential wall thickening along the distal descending colon or span of approximately 9 cm, refe r to coronal image 54. There is sigmoid diverticulosis. No pericolonic inflammatory change otherwise seen. Bladder partially distended. Uterus anteverted. Ovaries not well delineated adjacent clustered bowel. No abnormal fluid collection in the pelvis or pelvic lymphadenopathy. Previous fixation of the pubic symphysis. Healed fracture deformities right inferior pubic ramus. No osseous destructive process. IMPRESSION: 1. CHANGES SUSPECTED TO REPRESENT DISTAL ESOPHAGEAL RESECTION WITH PARTIAL GASTRIC PULL-THROUGH PROCE DURE. THE SUPERIOR EXTENT OF THE GASTRIC PULL-THROUGH IS OUTSIDE THE FIELD OF VIEW. THERE IS PROMINEN T RETAINED FLUID IN THE SUPERIOR PORTION THAT COULD REFLECT REFLUX DISEASE. CORRELATE TO EXCLUDE CONC URRENT GASTRITIS GIVEN MILD GASTRIC FOLD THICKENING HERE. 2. A 9 CM SEGMENT OF CIRCUMFERENTIALLY THICKENED DESCENDING COLON. CORRELATE FOR NONSPECIFIC COLITIS. 3. NONOBSTRUCTIVE 1.7 CM RIGHT RENAL CALCULUS. WITHIN THE LEFT KIDNEY, THERE IS SLIGHT UROTHELIAL THI CKENING OF THE COLLECTING SYSTEM. CORRELATE WITH URINALYSIS TO EXCLUDE ANY SIGNS OF ASCENDING UTI. 4. 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 5. ADDITIONAL SIGMOID DIVERTICULOSIS WITHOUT ACUTE DIVERTICULITIS.
[2023-01-05] MEDS ORDERED: ACET/COD 300 MG/30 MG STARTER PACK 6 TAB BTL PO STA (07:46)
[2023-01-05 08:35] VITALS: BP 111/78; PULSE 58
== END 2023-01-05 08:19 | disposition home or self-care (01) ==
LOC: EC 02:54
DX: R10.11 Right upper quadrant pain (principal); R00.0 Tachycardia, unspecified; K21.9 Gastro-esophageal reflux disease without esophagitis; F17.200 Nicotine dependence, unspecified, uncomplicated; F12.90 Cannabis use, unspecified, uncomplicated; Z86.59 Personal history of other mental and behavioral disorders; Z88.6 Allergy status to analgesic agent; Z88.8 Allergy status to other drugs, medicaments and biological substances
CPT/HCPCS: 36415; 85379; 80053; 83690; 84484; 85025; 71046; 74177; 99285; 96374; 96361; J1885; Q9967

== ENCOUNTER 2023-06-25 04:17 | Emergency (ER) | payer BC ==
[2023-06-25 04:27] VITALS: TEMP 98
--- NOTE | 2023-06-25 04:42 | ED ---
Abdominal Pain HPI - General Chief Complaint: Urogenital Stated Complaint: Vomiting Time Seen by Provider: 06/25/23 04:38 Source: patient, RN notes reviewed, old records reviewed Mode of arrival: ambulatory Limitations: no limitations - History of Present Illness Initial Comments: This is a 58-year-old female to the ER for evaluation, patient was today for evaluation of severe abdominal pain right-sided flank pain right-sided suprapubic abdominal pain. History of kidney stones feels like kidney stone MD Complaint: abdominal pain, flank pain (Sided) -: hour(s) Location: RLQ, epigastric, suprapubic, R flank Radiation: R flank, back Migration to: R flank Severity: severe Severity scale (1-10): 9 Quality: stabbing, sharp Consistency: constant Improves With: nothing Worsens With: nothing - Related Data Home Medications Medication Instructions Recorded Confirmed Pantoprazole Sodium [Protonix] 40 mg PO DAILY 11/23/19 05/09/21 Previous Rx's Medication Instructions Recorded HYDROcodone/APAP 7.5-325MG [[place] 1 tab PO Q6HR PRN 3 Days #12 tab 01/05/23 7.5-325] Allergies Allergy/AdvReac Type Severity Reaction Status Date / Time aspirin AdvReac Abdominal Verified 01/05/23 02:57 Pain steroids AdvReac chest Uncoded 01/05/23 02:57 tightness Review of Systems ROS Statement: Those systems with pertinent positive or pertinent negative responses have been documented in the HPI. ROS Other: All systems not noted in ROS Statement are negative. Past Medical History Past Medical History: Cancer, GERD/Reflux, Osteoarthritis (OA) Additional Past Medical History / Comment(s): hx of esophageal cancer 2010-had chemo & radiation prior to surg, shingles, hx of bleeding ulcer. History of Any Multi-Drug Resistant Organisms: ESBL Date of last positivie culture/infection: 12/06/20 MDRO Source:: ESBL URINE Past Surgical History: Section, Orthopedic Surgery, Tubal Ligation Additional Past Surgical History / Comment(s): surg. for fx. pelvis @age of 16, had most of esophagus & 1/3 of stomach removed @[facility] for [facility] , C/S x2, nephrostolithotomy, hemorrhoidectomy. 05/11/2020 Right percutaneous nephrolitotomy with neprho tube insertion. Past Anesthesia/Blood Transfusion Reactions: No Reported Reaction Additional Past Anesthesia/Blood Transfusion Reaction / Comment(s): previous blood transfusion without reaction Past Psychological History: Anxiety, Depression Smoking Status: Current every day smoker Past Alcohol Use History: None Reported Past Drug Use History: Marijuana - Past Family History Sister(s) Family Medical History: Deep Vein Thrombosis (DVT) Mother Family Medical History: Deep Vein Thrombosis (DVT) General Exam Limitations: no limitations General appearance: alert, in no apparent distress, anxious Head exam: Present: atraumatic, normocephalic, normal inspection Eye exam: Present: normal appearance, PERRL, EOMI. Absent: scleral icterus, conjunctival injection, periorbital swelling ENT exam: Present: normal exam, mucous membranes moist Neck exam: Present: normal inspection. Absent: tenderness, meningismus, lymphadenopathy Respiratory exam: Present: normal lung sounds bilaterally. Absent: respiratory distress, wheezes, rales, rhonchi, stridor Cardiovascular Exam: Present: regular rate, normal rhythm, normal heart sounds. Absent: systolic murmur, diastolic murmur, rubs, gallop, clicks GI/Abdominal exam: Present: soft, normal bowel sounds. Absent: distended, tenderness, guarding, rebound, rigid Extremities exam: Present: normal inspection, full ROM, normal capillary refill. Absent: tenderness, pedal edema, joint swelling, calf tenderness Back exam: Present: normal inspection Neurological exam: Present: alert, oriented X3, CN II-XII intact Psychiatric exam: Present: normal affect, normal mood Skin exam: Present: warm, dry, intact, normal color. Absent: rash Course Vital Signs 06/25/23 06/25/23 04:21 06:56 Temperature 98 F Pulse Rate 113 H 106 H Respiratory 18 16 Rate Blood Pressure 148/92 127/77 O2 Sat by Pulse 98 98 Oximetry - Reevaluation(s) Reevaluation #1: 06/25/23 05:36 Records reviewed Reevaluation #2: 06/25/23 05:36 Patient symptoms improved Reevaluation #3: 06/25/23 05:36 Patient informed of results questions answered Reevaluation #4: Was pt. sent in by a medical professional or institution (, PA, DISTRIBUTION TECH, urgent care, hospital, or senior living...) When possible be specific @ -no Did you speak to anyone other than the patient for history (EMS, parent, family, police, friend...)? What history was obtained from this source @ -no Did you review nursing and triage notes (agree or disagree)? Why? @ -agree Are old charts reviewed (outside hosp., previous admission, EMS record, old EKG, old radiological studies, urgent care reports/EKG's, senior living records)? Report findings @ -yes Differential Diagnosis (chest pain, altered mental status, abdominal pain women, abdominal pain men, vaginal bleeding, weakness, fever, dyspnea, syncope, headache, dizziness, GI bleed, back pain, seizure, CVA, palpatations, mental health, musculoskeletal)? @ -prior EKG interpreted by me (3pts min.). @ -no X-rays interpreted by me (1pt min.). @ -no CT interpreted by me (1pt min.). @ -yes negative for acute disease U/S interpreted by me (1pt. min.). @ -no What testing was considered but not performed or refused? (CT, X-rays, U/S, labs)? Why? @ -none What meds were considered but not given or refused? Why? @ -none Did you discuss the management of the patient with other professionals (professionals i.e. , PA, DISTRIBUTION TECH, lab, RT, psych nurse, social insurance specialist, fishing rod assembler, teacher, dog license officer supervisor, case hardener)? Give summary @ -no Was smoking cessation discussed for >3mins.? @ -no Was critical care preformed (if so, how long)? @ -no Were there social determinants of health that impacted care today? How? (Homelessness, low income, unemployed, alcoholism, drug addiction, transportation, low edu. Level, literacy, decrease access to med. care, penitentiary, rehab)? @ -none Was there de-escalation of care discussed even if they declined (Discuss DNR or withdrawal of care, Hospice)? DNR status @ -no What co-morbidities impacted this encounter? (DM, HTN, Smoking, COPD, CAD, Cancer, CVA, ARF, Chemo, Hep., AIDS, mental health diagnosis, sleep apnea, morbid obesity)? @ -none Was patient admitted / discharged? Hospital course, mention meds given and route, prescriptions, significant lab abnormalities, going to OR and other pertinent info. @ - 58 female to ER for evaluation of abdominal pain. Patient has no acute cause of abdominal pain found here in the ER feels improved and can be discharged home Discharged Undiagnosed new problem with uncertain prognosis? @ -no Drug Therapy requiring intensive monitoring for toxicity (Heparin, Nitro, Insulin, Cardizem)? @ -no Were any procedures done? @ -no Diagnosis/symptom? @ -Abdominal pain Acute, or Chronic, or Acute on Chronic? @ -Acute Uncomplicated (without systemic symptoms) or Complicated (systemic symptoms)? @ -Complicated Side effects of treatment? @ -no Exacerbation, Progression, or Severe Exacerbation? @ -exacerbation Poses a threat to life or bodily function? How? (Chest pain, USA, NH, pneumonia, PE, COPD, DKA, ARF, appy, cholecystitis, CVA, Diverticulitis, Homicidal, Suicidal, threat to staff... and all critical care pts) @ -no Reevaluation #5: Differential Abdominal Pain Women: Appendicitis, Cholecystitis, diverticulosis, ischemic bowel, pancreatitis, hepatitis, UTI, gastroenteritis, AAA, incarcerated hernia, bowel obstruction, constipation, inflammatory bowel, hepatitis, peptic ulcer disease, splenic infarction, perforated viscus, vulvitis, ovarian torsion, PID, kidney stone, placenta abruption, this is not meant to be an all-inclusive list Medical Decision Making - Medical Decision Making 58 female to ER for evaluation of abdominal pain. Patient has no acute cause of abdominal pain found here in the ER feels improved and can be discharged home - Lab Data Result diagrams: 06/25/23 04:52 06/25/23 04:52 Lab Results 06/25/23 06/25/23 06/25/23 Range/Units 04:52 04:52 04:52 WBC 6.8 (3.8-10.6) k/uL RBC 4.43 (3.80-5.40) m/uL Hgb 12.7 (11.4-16.0) gm/dL Hct 38.8 (34.0-46.0) % MCV 87.6 (80.0-100.0) fL MCH 28.6 (25.0-35.0) pg MCHC 32.7 (31.0-37.0) g/dL RDW 14.5 (11.5-15.5) % Plt Count 246 (150-450) k/uL MPV 8.1 Neutrophils % 73 % Lymphocytes % 18 % Monocytes % 5 % Eosinophils % 1 % Basophils % 1 % Neutrophils # 5.0 (1.3-7.7) k/uL Lymphocytes # 1.2 (1.0-4.8) k/uL Monocytes # 0.3 (0-1.0) k/uL Eosinophils # 0.1 (0-0.7) k/uL Basophils # 0.1 (0-0.2) k/uL Sodium 135 L (137-145) mmol/L Potassium 5.3 H (3.5-5.1) mmol/L Chloride 105 (98-107) mmol/L Carbon Dioxide 20 L (22-30) mmol/L Anion Gap 10 mmol/L BUN 27 H (7-17) mg/dL Creatinine 1.05 H (0.52-1.04) mg/dL Est GFR (CKD-EPI)AfAm 67 (>60 ml/min/1.73 sqM) Est GFR (CKD-EPI)NonAf 58 (>60 ml/min/1.73 sqM) Glucose 147 H (74-99) mg/dL Calcium 9.4 (8.4-10.2) mg/dL Total Bilirubin 0.7 (0.2-1.3) mg/dL AST 30 (14-36) U/L ALT 12 (4-34) U/L Alkaline Phosphatase 81 (38-126) U/L Total Protein 7.8 (6.3-8.2) g/dL Albumin 4.2 (3.5-5.0) g/dL Amylase 58 (30-110) U/L Lipase 93 (23-300) U/L Urine Color Yellow Urine Appearance Cloudy H (Clear) Urine pH 5.5 (5.0-8.0) Ur Specific [place] 1.023 (1.001-1.035) Urine Protein 1+ H (Negative) Urine Glucose (UA) Negative (Negative) Urine Ketones Negative (Negative) Urine Blood Moderate H (Negative) Urine Nitrite Negative (Negative) Urine Bilirubin Negative (Negative) Urine Urobilinogen 2.0 (<2.0) mg/dL Ur Leukocyte Esterase Small H (Negative) Urine RBC 19 H (0-5) /hpf Urine WBC 24 H (0-5) /hpf Ur Squamous Epith Cells 5 H (0-4) /hpf Amorphous Sediment Few H (None) /hpf Urine Bacteria Occasional H (None) /hpf Hyaline Casts 191 H (0-2) /lpf Urine Mucus Few H (None) /hpf Urine Yeast (Budding) Occasional H (None) /hpf - Radiology Data Radiology results: report reviewed (CT of the abdomen and pelvis negative for acute disease), image reviewed Disposition Clinical Impression: Abdominal pain Disposition: HOME SELF-CARE Instructions (If sedation given, give patient instructions): Abdominal Pain (ED) Is patient prescribed a controlled substance at d/c from ED?: No Referrals: Roderick Mcnair DO [Primary Care Provider] - 1-2 days Time of Disposition: 06:40
[2023-06-25] MEDS: ONDANSETRON 4 MG/2 ML VIAL IVP STA (05:09)
[2023-06-25] MEDS: MORPHINE SULFATE 4 MG/ML SYRINGE IVP STA (05:09)
[2023-06-25] MEDS: KETOROLAC 15 MG/ML 1 ML VIAL IVP STA (05:10)
[2023-06-25] MEDS: SODIUM CHLORIDE 0.9% 1,000 ML IV STA (05:11)
[2023-06-25] MEDS: SODIUM CHLORIDE 0.9% 500 ML 500 ML IV STA (05:11)
[2023-06-25 05:21] LABS: Basophils # (A) 0.1 k/uL (0-0.2); Basophils % (A) 1 %; Eosinophils # (A) 0.1 k/uL (0-0.7); Eosinophils % (A) 1 %; HCT 38.8 % (34.0-46.0); HGB 12.7 gm/dL (11.4-16.0); Lymphocytes # (A) 1.2 k/uL (1.0-4.8); Lymphocytes % (A) 18 %; MCH 28.6 pg (25.0-35.0); MCHC 32.7 g/dL (31.0-37.0); MCV 87.6 fL (80.0-100.0); Mean Platelet Volume 8.1; Monocytes # (A) 0.3 k/uL (0-1.0); Monocytes % (A) 5 %; Neutrophils % (A) 73 %; Platelet Count 246 k/uL (150-450); RBC 4.43 m/uL (3.80-5.40); RDW 14.5 % (11.5-15.5); WBC 6.8 k/uL (3.8-10.6)
[2023-06-25 05:36] LABS: ALT 12 U/L (4-34); African American GFR (CKD) 67 (>60 ml/min/1.73 sqM); Albumin 4.2 g/dL (3.5-5.0); Amylase 58 U/L (30-110); Anion Gap 10 mmol/L; Blood Urea Nitrogen 27 mg/dL (7-17); Calcium 9.4 mg/dL (8.4-10.2); Carbon Dioxide 20 mmol/L (22-30); Chloride 105 mmol/L (98-107); Glucose 147 mg/dL (74-99); Lipase 93 U/L (23-300); Non-African American GFR(CKD) 58 (>60 ml/min/1.73 sqM); Sodium 135 mmol/L (137-145); Total Bilirubin 0.7 mg/dL (0.2-1.3); Total Protein 7.8 g/dL (6.3-8.2)
[2023-06-25 05:37] LABS: AST 30 U/L (14-36); Alkaline Phosphatase 81 U/L (38-126); Potassium 5.3 mmol/L (3.5-5.1)
[2023-06-25 06:06] LABS: Amorphous Sediment,Urine Few /hpf; Appearance,Urine Cloudy (Clear); Bacteria,Urine Occasional /hpf; Bilirubin,Urine Negative (Negative); Blood,Urine Moderate (Negative); Budding Yeast,Urine Occasional /hpf; Color,Urine Yellow; Glucose,Urine (UA) Negative (Negative); Hyaline Casts,Urine 191 /lpf (0-2); Ketones,Urine Negative (Negative); Leukocyte Esterase,Urine Small (Negative); Mucus,Urine Few /hpf; Nitrite,Urine Negative (Negative); PH, Urine 5.5 (5.0-8.0); Protein,Urine 1+ (Negative); RBC,Urine 19 /hpf (0-5); Specific Gravity,Urine 1.023 (1.001-1.035); Squamous Epithelial Cell,Urine 5 /hpf (0-4); WBC,Urine 24 /hpf (0-5)
--- NOTE | 2023-06-25 06:29 | CT ---
EXAMINATION TYPE: CT abdomen pelvis wo con DATE OF EXAM: 06/25/2023 HISTORY: abdominal pain. Right flank pain. History of kidney stones. CT DLP: 254.2 mGycm. Automated Exposure Control for Dose Reduction was Utilized. TECHNIQUE: CT scan of the abdomen and pelvis is performed without oral or IV contrast. COMPARISON: Most recent prior CT January 05, 2023 FINDINGS: Within the limitations of a non-contrast study, the following observations are made. LUNG BASES: Some new areas of groundglass opacity in the peripheral right lower lobe. LIVER/GB: Prominent right hepatic lobe and/or slightly prominent liver redemonstrated. PANCREAS: Moderate generalized atrophy redemonstrated. SPLEEN: No significant abnormality is seen. ADRENALS: Several phleboliths just below the right adrenal gland are again seen. KIDNEYS: Multiple nonobstructing bilateral renal calculi with approximately 20 smaller left-sided torey al calculi and approximately right renal calculi including larger calculi lower pole of the right kid janeth redemonstrated. There is diminished size to the left kidney with areas of cortical volume loss re demonstrated. There are simple appearing thin-walled cysts again seen including larger cysts in the r ight kidney redemonstrated. There is a focal phlebolith adjacent to the proximal left ureter axial im age 40. No hydronephrosis or obstructing ureteric calculi clearly seen bilaterally. No intraluminal c alculus in the bladder. BOWEL: Gastric pull-up is redemonstrated and partially imaged on current study. Surgical changes near the diaphragm redemonstrated. Suboptimal evaluation of bowel without enteric contrast. No abnormal s mall or large bowel dilatation. Distal colonic diverticula are redemonstrated. Mild/moderate wall thi ckening in the sigmoid colon again seen. No new surrounding fat stranding. GENITAL ORGANS: Anteverted uterus. LYMPH NODES: No greater than 1cm abdominal or pelvic lymph nodes are appreciated. OSSEOUS STRUCTURES: Surgical change at level of the pubic symphysis is again seen. OTHER: Mild to moderate calcified plaque in ectatic abdominal aorta. No greater than 3.0 cm AAA. IMPRESSION: 1. More prominent bilateral nonobstructing renal calculi. No hydronephrosis or obstructing ureteral c alculi currently seen bilaterally. 2. Distal colonic diverticulosis redemonstrated. Mild to moderate wall thickening again seen and pres umed product of nondistention, uncomplicated mild colitis is not entirely excluded though felt less l ikely. 3. New areas of groundglass opacity in the right lower lobe worrisome for developing infectious proce ss. Correlate clinically.
[2023-06-25] MEDS: HYDROmorphone 1 MG/ML 1 ML SYRINGE IVP STA (06:33)
[2023-06-25 07:23] VITALS: BP 127/77; PULSE 106; RESP 16
== END 2023-06-25 07:12 | disposition home or self-care (01) ==
LOC: EC 04:17
DX: R10.31 Right lower quadrant pain (principal); R10.13 Epigastric pain; F17.200 Nicotine dependence, unspecified, uncomplicated; F12.90 Cannabis use, unspecified, uncomplicated; Z88.8 Allergy status to other drugs, medicaments and biological substances
CPT/HCPCS: 36415; 80053; 82150; 83690; 85025; 81001; 74176; 99284; 96374; 96375; 96361 ×2; J2270; J2405; J1170; J1885

== ENCOUNTER → 2023-08-07 | Outpatient (CLI) | payer BC ==
--- NOTE | 2023-08-09 14:03 | MM ---
Reason for Exam: Screening (asymptomatic). Last mammogram was performed 1 year(s) and 2 month(s) ago. Patient History: Menarche at age 11. First Full-Term at age 18. Postmenopausal. Other cancer, age 45. Hormonal Contraceptives for 5 years from age 14 until age 19. 09/09/2009, Benign Core Biopsy on the right side. Maternal aunt had breast cancer, age 40. Maternal aunt had breast cancer, age 46. Maternal cousin had breast cancer, age 40. Risk Values: Catherine 5 year model risk: 1.5%. NCI Lifetime model risk: 7.7%. Prior Study Comparison: 03/17/2020 Bilateral Screening Mammogram, [facility]. 05/05/2021 Bilateral Screening Mammogram, [facility]. 06/06/2022 Bilateral MG screening mammo w CAD, [facility]. Tissue Density: There are scattered areas of fibroglandular density. Findings: Analyzed By CAD. Right breast: There is no suspicious group of microcalcifications or new suspicious mass. Left breast: There is no suspicious group of microcalcifications or new suspicious mass. Overall Assessment: Negative, BI-RAD 1 Management: Screening Mammogram of both breasts in [address] [facility] will attempt to contact patient to return for supplemental views and ultrasound if indicated. Patient should continue monthly self-breast exams. A clinical breast exam by your physician is recommended on an annual basis. This exam should not preclude additional follow-up of suspicious palpable abnormalities. Note on Catherine scores and lifetime risk: 1. A Catherine score greater than 3% is considered moderate risk. If this is the case, consider specialist referral to assess eligibility for a risk reducing agent. 2. If overall lifetime risk for the development of breast cancer is 20% or higher, the patient may qualify for future screening with alternating mammogram and breast MRI. Electronically signed and approved by: Zhen Matthew DO
== END | disposition home or self-care (01) ==
LOC: RADMAMWWP 08:08
PROVIDERS: ATTEND Family Medicine
DX: Z12.31 Encounter for screening mammogram for malignant neoplasm of breast (principal); Z78.0 Asymptomatic menopausal state; Z80.3 Family history of malignant neoplasm of breast
CPT/HCPCS: 77067

== ENCOUNTER 2023-09-10 10:00 | Observation (INO) | payer BC ==
--- NOTE | 2023-09-10 10:11 | ED ---
Chest Pain HPI - General Chief Complaint: Chest Pain Stated Complaint: Chest Pain Time Seen by Provider: 09/10/23 10:11 Source: patient, RN notes reviewed Mode of arrival: ambulatory Limitations: no limitations - History of Present Illness Initial Comments: This is a 58-year-old female presents the emergency department chief complaint of chest pain again yesterday evening around 2100 while she was at home. The pain is described as a pressure in her chest radiates down the left arm. She also states that she has been feeling short of breath yesterday evening as well in addition to nausea but no episodes of emesis. Patient denies personal history of [place], CVA, DVT or PE. Denies blood thinner use. Denies recent prolonged travel, bilateral LE swelling/pain. history of esophageal cancer in remission and denies current chemo or radiation use. Current everyday smoker. - Related Data Home Medications Medication Instructions Recorded Confirmed Pantoprazole Sodium [Protonix] 40 mg PO BID 11/23/19 09/10/23 Atorvastatin [Lipitor] 20 mg PO HS 09/10/23 09/10/23 Empagliflozin [Jardiance] 25 mg PO DAILY 09/10/23 09/10/23 Fluticasone Nasal [place] [Flonase 1 spray EA NOSTRIL DAILY 09/10/23 09/10/23 Nasal [place]] lisinopriL [Zestril] 5 mg PO DAILY 09/10/23 09/10/23 Allergies Allergy/AdvReac Type Severity Reaction Status Date / Time aspirin AdvReac Abdominal Verified 09/10/23 11:33 Pain steroids AdvReac chest Uncoded 09/10/23 11:33 tightness Review of Systems ROS Statement: Those systems with pertinent positive or pertinent negative responses have been documented in the HPI. ROS Other: All systems not noted in ROS Statement are negative. Past Medical History Past Medical History: Cancer, GERD/Reflux, Osteoarthritis (OA) Additional Past Medical History / Comment(s): hx of esophageal cancer 2010-had chemo & radiation prior to surg, shingles, hx of bleeding ulcer. History of Any Multi-Drug Resistant Organisms: ESBL Date of last positivie culture/infection: 12/06/20 MDRO Source:: ESBL URINE Past Surgical History: Section, Orthopedic Surgery, Tubal Ligation Additional Past Surgical History / Comment(s): surg. for fx. pelvis @age of 16, had most of esophagus & 1/3 of stomach removed @[facility] for cancer , C/S x2, nephrostolithotomy, hemorrhoidectomy. 05/11/2020 Right percutaneous nephrolitotomy with neprho tube insertion. Past Anesthesia/Blood Transfusion Reactions: No Reported Reaction Additional Past Anesthesia/Blood Transfusion Reaction / Comment(s): previous blood transfusion without reaction Past Psychological History: Anxiety, Depression Smoking Status: Current every day smoker Past Alcohol Use History: None Reported Past Drug Use History: Marijuana - Past Family History Sister(s) Family Medical History: Deep Vein Thrombosis (DVT) Mother Family Medical History: Deep Vein Thrombosis (DVT) General Exam Limitations: no limitations General appearance: alert, in no apparent distress Head exam: Present: atraumatic, normocephalic, normal inspection Eye exam: Present: normal appearance, PERRL, EOMI. Absent: scleral icterus, conjunctival injection, periorbital swelling ENT exam: Present: normal exam, mucous membranes moist Neck exam: Present: normal inspection. Absent: tenderness, meningismus, lymphadenopathy Respiratory exam: Present: normal lung sounds bilaterally, decreased breath sounds. Absent: respiratory distress, wheezes, rales, rhonchi, stridor Cardiovascular Exam: Present: regular rate, normal rhythm, tachycardia, normal heart sounds. Absent: systolic murmur, diastolic murmur, rubs, gallop, clicks GI/Abdominal exam: Present: soft, normal bowel sounds. Absent: distended, tenderness, guarding, rebound, rigid Extremities exam: Present: normal inspection, full ROM, normal capillary refill. Absent: tenderness, pedal edema, joint swelling, calf tenderness Back exam: Present: normal inspection Neurological exam: Present: alert, oriented X3, CN II-XII intact Psychiatric exam: Present: normal affect, normal mood Skin exam: Present: warm, dry, intact, normal color. Absent: rash Course Vital Signs 09/10/23 09/10/23 09/10/23 10:01 10:30 10:35 Temperature 97.8 F Pulse Rate 137 H 112 H 123 H Respiratory 24 18 Rate Blood Pressure 148/81 140/99 103/65 O2 Sat by Pulse 98 Oximetry 09/10/23 09/10/23 11:00 12:00 Temperature Pulse Rate 113 H 110 H Respiratory Rate Blood Pressure 103/65 98/66 O2 Sat by Pulse Oximetry Chest Pain MDM - MDM Was pt. sent in by a medical professional or institution ([facility] Gaviria, [employer], urgent care, hospital, or jail...) When possible be specific @ -No Did you speak to anyone other than the patient for history (EMS, parent, family, police, friend...)? What history was obtained from this source @ -No Did you review nursing and triage notes (agree or disagree)? Why? @ -I reviewed and agree with nursing and triage notes Were old charts reviewed (outside hosp., previous admission, EMS record, old EKG, old radiological studies, urgent care reports/EKG's, jail records)? Report findings @ -No old charts were reviewed Differential Diagnosis (chest pain, altered mental status, abdominal pain women, abdominal pain men, vaginal bleeding, weakness, fever, dyspnea, syncope, headache, dizziness, GI bleed, back pain, seizure, CVA, palpatations, mental health, musculoskeletal)? @ -Differential Chest Pain: Stable Angina, Unstable Angina, STEMI, NSTEMI Aortic Dissection, Pneumothorax, Musculoskeletal, Esophageal Spasm GERD, Cholecystitis, Pancreatitis, Zoster, this is not meant to be an all-inclusive list. EKG interpreted by me (3pts min.). @ -completed at 1014: Sinus tachycardia with shortened FL interval, ventricular rate 121, FL interval 96, QTc 364. No acute signs of ischemia. X-rays interpreted by me (1pt min.). @ -Chest x-ray no acute cardiopulmonary processes or disease CT interpreted by me (1pt min.). @ -None done U/S interpreted by me (1pt. min.). @ -None done What testing was considered but not performed or refused? (CT, X-rays, U/S, labs)? Why? @ -None What meds were considered but not given or refused? Why? @ -None Did you discuss the management of the patient with other professionals (professionals i.e. TEL[facility] Gaviria, [employer], lab, RT, psych nurse, social work specialist, stripper opaquer, teacher, disability hearing officer, disease case manager rn)? Give summary @ -spoke to internal medicine physician from [facility], Dr. Day, regard to the patient's presentation for admission due to unspecified chest pain. Patient accepted for admission with cardiology on consult. Was smoking cessation discussed for >3mins.? @ -No Was critical care preformed (if so, how long)? @ -No Were there social determinants of health that impacted care today? How? (Homelessness, low income, unemployed, alcoholism, drug addiction, transportation, low edu. Level, literacy, decrease access to med. care, senior living, rehab)? @ -No Was there de-escalation of care discussed even if they declined (Discuss DNR or withdrawal of care, Hospice)? DNR status @ -No What co-morbidities impacted this encounter? (DM, HTN, Smoking, COPD, CAD, Cancer, CVA, ARF, Chemo, Hep., AIDS, mental health diagnosis, sleep apnea, morbid obesity)? @ -None Was patient admitted / discharged? Hospital course, mention meds given and route, prescriptions, significant lab abnormalities, going to OR and other pert inent info. @ -Admitted, 58-year-old female with chest pain. On examination patient notes that her chest pain has been constant of the left chest with radiation to her left arm since 2100 yesterday. Patient's blood pressure stable she is tachycardic, EKG reveals sinus tachycardia with no acute signs of ischemia. Labs including CBC and coagulation profile within normal limits. D-dimer non- elevated at level 0.40, within normal limits. CMP with no acute findings. Patient provided with dose of nitro, reevaluation states that chest pain has somewhat improved. Patient's heart score is 5, that is considered a moderate level for the chance of a 6-week major adverse cardiac event to occur, for is recommend the patient be admitted to observation with cardiology consult for further evaluation. Patient will be admitted to internal medicine with cardiology on consult for further evaluation. Discussed with Dr. Villa Undiagnosed new problem with uncertain prognosis? @ -No Drug Therapy requiring intensive monitoring for toxicity (Heparin, Nitro, Insulin, Cardizem)? @ -No Were any procedures done? @ -No Diagnosis/symptom? @ -chest pain Acute, or Chronic, or Acute on Chronic? @ -acute Uncomplicated (without systemic symptoms) or Complicated (systemic symptoms)? @ -complicated Side effects of treatment? @ -No Exacerbation, Progression, or Severe Exacerbation? @ -No Poses a threat to life or bodily function? How? (Chest pain, [place], [place], pneumonia, PE, COPD, DKA, ARF, appy, cholecystitis, CVA, Diverticulitis, Homicidal, Suicidal, threat to staff... and all critical care pts) @ -possible, untreated ACS can lead to multiorgan system dysfunction and possibly . Disposition Clinical Impression: Chest pain Disposition: ADMITTED IP TO THIS [facility] Condition: Serious Decision to Admit Reason: Admit from EC Decision Date: 09/10/23 Decision Time: 11:36
[2023-09-10] MEDS: NITROGLYCERIN SL TABS 0.4 MG TAB SUBLINGUAL STA (10:30)
[2023-09-10 10:34] LABS: Basophils # (A) 0.1 k/uL (0-0.2); Basophils % (A) 1 %; Eosinophils # (A) 0.1 k/uL (0-0.7); Eosinophils % (A) 2 %; HCT 39.6 % (34.0-46.0); HGB 13.1 gm/dL (11.4-16.0); Lymphocytes # (A) 1.2 k/uL (1.0-4.8); Lymphocytes % (A) 16 %; MCH 28.7 pg (25.0-35.0); MCHC 33.1 g/dL (31.0-37.0); MCV 86.7 fL (80.0-100.0); Monocytes # (A) 0.4 k/uL (0-1.0); Monocytes % (A) 5 %; Neutrophils # (A) 5.9 k/uL (1.3-7.7); Neutrophils % (A) 76 %; Platelet Count 246 k/uL (150-450); RBC 4.57 m/uL (3.80-5.40); RDW 14.6 % (11.5-15.5); WBC 7.8 k/uL (3.8-10.6)
[2023-09-10 10:49] LABS: INR 0.9 (<1.2); Partial Thromboplastin Time 26.5 sec (22.0-30.0); Prothrombin Time 10.2 sec (10.0-12.5)
--- NOTE | 2023-09-10 10:55 | XR ---
EXAMINATION TYPE: XR chest 2V DATE OF EXAM: 09/10/2023 COMPARISON: 01/05/2023 HISTORY: Shortness of breath TECHNIQUE: Frontal and lateral views of the chest are obtained. FINDINGS: Scattered senescent parenchymal changes noted. Hyperinflation compatible with COPD. No evidence for infiltrate. No evidence for atelectasis. Heart size is stable. Mediastinal structures are stable and grossly unremarkable. No evidence for hilar prominence. Degenerative changes dorsal spine. IMPRESSION: 1. No evidence for acute pulmonary disease.
[2023-09-10 10:59] LABS: ALT 12 U/L (4-34); AST 27 U/L (14-36); African American GFR (CKD) >90 (>60 ml/min/1.73 sqM); Albumin 4.2 g/dL (3.5-5.0); Alkaline Phosphatase 81 U/L (38-126); Anion Gap 9 mmol/L; Blood Urea Nitrogen 16 mg/dL (7-17); Calcium 9.6 mg/dL (8.4-10.2); Carbon Dioxide 20 mmol/L (22-30); Chloride 107 mmol/L (98-107); Glucose 134 mg/dL (74-99); Lipase 55 U/L (23-300); Magnesium 1.6 mg/dL (1.6-2.3); Non-African American GFR(CKD) >90 (>60 ml/min/1.73 sqM); Potassium 4.3 mmol/L (3.5-5.1); Sodium 136 mmol/L (137-145); Total Bilirubin 0.9 mg/dL (0.2-1.3); Total Protein 7.5 g/dL (6.3-8.2)
[2023-09-10 11:05] LABS: NT-Pro-B-Type Natriuretic Pept 1450 pg/mL
[2023-09-10] MEDS ORDERED: NALOXONE 0.4 MG/ML 1 ML VIAL IV PRN (11:38)
[2023-09-10] MEDS: ACETAMINOPHEN TAB 325 MG TAB PO PRN (12:19)
[2023-09-10] MEDS: SODIUM CHLORIDE 0.9% 1,000 ML IV SCH (12:20)
--- NOTE | 2023-09-10 17:31 | CA ---
Transthoracic Echo Report Name: Iris Marshall Age: 58 Gender: F : 1965 Exam Date: 09/10/2023 15:07 Exam Location: [facility] Ht (in): 62 Wt (lb): 99 Ordering Physician: Conrad Day MD Attending/Referring Phys: Press Officer Heather Roa RDCS Procedure CPT: Indications: Chest Pain Cardiac Hx: Technical Quality: Good Contrast 1: Total Dose (mL): Contrast 2: Total Dose (mL): MEASUREMENTS (Male / Female) Normal Values 2D ECHO LV Diastolic Diameter PLAX 3.9 cm 4.2 - 5.9 / 3.9 - 5.3 cm LV Systolic Diameter PLAX 2.6 cm IVS Diastolic Thickness 0.9 cm 0.6 - 1.0 / 0.6 - 0.9 cm LVPW Diastolic Thickness 0.8 cm 0.6 - 1.0 / 0.6 - 0.9 cm LV Relative Wall Thickness 0.4 RV Internal Dim ED PLAX 2.3 cm LVOT Diameter 2.0 cm LA Systolic Diameter LX 2.3 cm 3.0 - 4.0 / 2.7 - 3.8 cm LV Diastolic Volume MOD 4C 54.2 cm??? LV Systolic Volume MOD 4C 25.9 cm??? LV Ejection Fraction MOD 4C 52.2 % LV Cardiac Index MOD 4C 2048.0 cm???/min???m??? LV Diastolic Length 4C 6.7 cm LV Systolic Length 4C 5.7 cm LV Diastolic Volume MOD 2C 53.6 cm??? LV Systolic Volume MOD 2C 25.2 cm??? LV Ejection Fraction MOD 2C 53.0 % LV Cardiac Index MOD 2C 2057.5 cm???/min???m??? LV Diastolic Length 2C 6.8 cm LV Systolic Length 2C 5.8 cm LA Volume 33.8 cm??? 18 - 58 / 22 - 52 cm??? LA Volume Index 24.2 cm???/m??? 16 - 28 cm???/m??? M-MODE Aortic Root Diameter MM 3.3 cm AV Cusp Separation MM 1.2 cm DOPPLER AV Peak Velocity 137.1 cm/s AV Peak Gradient 13.0 mmHg AV Mean Velocity 109.3 cm/s AV Mean Gradient 5.6 mmHg AV Velocity Time Integral 29.3 cm AI Peak Velocity 368.7 cm/s AI Peak Gradient 54.4 mmHg AI Pressure Half Time 734.9 ms LVOT Peak Velocity 95.8 cm/s LVOT Peak Gradient 3.7 mmHg LVOT Velocity Time Integral 19.4 cm LVOT Stroke Volume 63.5 cm??? LVOT Stroke Volume Index 44.8 ml/m??? LVOT Cardiac Index 4597.7 cm???/min???m??? AV Area Cont Eq vti 2.2 cm??? AV Area Cont Eq pk 2.3 cm??? MV Area PHT 3.4 cm??? Mitral E Point Velocity 97.1 cm/s Mitral A Point Velocity 132.7 cm/s Mitral E to A Ratio 0.7 MV Deceleration Time 223.8 ms TR Peak Velocity 200.0 cm/s TR Peak Gradient 16.0 mmHg Right Ventricular Systolic Press 21.0 mmHg FINDINGS Left Ventricle Left ventricular ejection fraction is estimated at 55-60 %. Left ventricular cavity size normal. Left ventricular cavity size normal. Normal left ventricular wall motion. Right Ventricle Normal right ventricular size and function. Right ventricular systolic pressure within normal limits. Right Atrium Normal right atrial size. No right atrial thrombus or mass seen. Left Atrium Normal left atrial size. No left atrial thrombus or mass present. Mitral Valve Structurally normal mitral valve. Mild mitral regurgitation. Aortic Valve Trileaflet aortic valve. Aortic valve sclerosis. Mild aortic regurgitation. Mild stenosis of AOV by planimetry Tricuspid Valve Structurally normal tricuspid valve. Mild tricuspid regurgitation. Pulmonic Valve Structurally normal pulmonic valve. No pulmonic regurgitation. Pericardium Small loculated pericardial effusion by RV Aorta Normal size aortic root and proximal ascending aorta. CONCLUSIONS Normal LV function Mild aortic regurgitation and stenosis Mild mitral regurgitation Previewed by: Dr. Jg Duval MD (Electronically Signed) Final Date: 10 September 2023 17:30
[2023-09-10] MEDS: PANTOPRAZOLE 40 MG TABLET PO SCH (21:01)
[2023-09-10] MEDS: ATORVASTATIN 20 MG TAB PO SCH (21:01)
[2023-09-11 08:08] VITALS: TEMP 98.2
[2023-09-11 08:33] LABS: Basophils # (A) 0.08 X 10*3/uL (0.00-0.10); Basophils % (A) 1.6 %; Eosinophils # (A) 0.13 X 10*3/uL (0.04-0.35); Eosinophils % (A) 2.7 %; HCT 35.7 % (37.2-46.3); HGB 11.6 g/dL (12.0-15.0); Lymphocytes # (A) 1.21 X 10*3/uL (0.90-5.00); Lymphocytes % (A) 24.9 %; MCH 28.2 pg (27.0-32.0); MCHC 32.5 g/dL (32.0-37.0); MCV 86.7 FL (80.0-97.0); Mean Platelet Volume 10.4 FL (9.5-12.2); Monocytes # (A) 0.44 X 10*3/uL (0.20-1.00); Monocytes % (A) 9.1 %; NRBC Per 100 WBC 0 X 10*3/uL (0.00-0.01); Neutrophils # (A) 2.99 X 10*3/uL (1.80-7.70); Neutrophils % (A) 61.5 %; Platelet Count 142 X 10*3/uL (140-440); RBC 4.12 X 10*6/uL (4.10-5.20); RDW 15.4 % (11.5-14.5); WBC 4.86 X 10*3/uL (4.50-10.00)
[2023-09-11 08:58] LABS: ALT 10 U/L (8-44); AST 17 U/L (13-35); Albumin 3.9 g/dL (3.8-4.9); Alkaline Phosphatase 77 U/L (41-126); Blood Urea Nitrogen 14.7 mg/dL (9.0-27.0); Calcium 8.7 mg/dL (8.7-10.3); Chloride 107 mmol/L (96-109); Chol/HDL Ratio 3.63 Ratio; Globulin 2.6 g/dL (1.6-3.3); Glucose 68 mg/dL (70-110); LDL Cholesterol,Calculated 114.5 mg/dL (0.0-131.0); Potassium 4.2 mmol/L (3.5-5.5); Sodium 139 mmol/L (135-145); Total Bilirubin 0.4 mg/dL (0.3-1.2); Total Protein 6.5 g/dL (6.2-8.2)
[2023-09-11] MEDS: DAPAGLIFLOZIN PROPANEDIOL 10 MG TABLET PO SCH (09:03)
[2023-09-11] MEDS: FLUTICASONE NASAL 50MCG/SPRAY 16GM BTL EA NOSTRIL SCH (09:03)
[2023-09-11] MEDS: lisinopriL 5 MG TAB PO SCH (09:03)
--- NOTE | 2023-09-11 09:35 | P.HPIM ---
History of Present Illness H&P Date: 09/10/23 History of present illness; patient is a 58-year-old female with past medical history significant for hyperlipidemia, diabetes mellitus, hypertension who presented to ER because of chest pain that started last night. Patient stated she was all right last night when she experienced chest pain that was pressure- like in the center of her chest, radiated to her left arm. There was no aggravating or relieving factors associated with this chest pain. Patient was complaining of shortness of breath at the time. Patient also complained of nausea but no vomiting. There was no complaint of orthopnea or PND. There was no complaint of lightheadedness or dizziness. Because of chest pain, patient came to the ER Initial lab work done in the ER showed WBC 9.8, hemoglobin 13.1, platelet count 246, D-dimer 0.4, sodium 136, potassium 4.3, BUN 16, creatinine 0.70, AST 27, ALT 12, troponin 0.016, proBNP 1440 EKG done in the ER showed heart rate of 121, no ST segment elevation or depression seen, no T-wave inversions seen. Patient admitted to internal medicine service REVIEW OF SYSTEMS: CONSTITUTIONAL: No fever, no malaise, no fatigue. HEENT: No recent visual problems or hearing problems. Denied any sore throat. CARDIOVASCULAR: As mentioned above Respiratory; as mentioned above GASTROINTESTINAL: No diarrhea, no nausea, no vomiting, no abdominal pain. NEUROLOGICAL: No headaches, no weakness, no numbness. HEMATOLOGICAL: Denies any bleeding or petechiae. GENITOURINARY: Denies any burning micturition, frequency, or urgency. MUSCULOSKELETAL/RHEUMATOLOGICAL: Denies any joint pain, swelling, or any muscle pain. ENDOCRINE: Denies any polyuria or polydipsia. The rest of the 14-point review of systems is negative. PHYSICAL EXAMINATION: GENERAL: The patient is alert and oriented x3, not in any acute distress. Well developed, well nourished. HEENT: Pupils are round and equally reacting to light. EOMI. No scleral icterus. No conjunctival pallor. Normocephalic, atraumatic. No pharyngeal erythema. No thyromegaly. CARDIOVASCULAR: S1 and S2 present. No murmurs, rubs, or gallops. PULMONARY: Chest is clear to auscultation, no wheezing or crackles. ABDOMEN: Soft, nontender, nondistended, normoactive bowel sounds. No palpable organomegaly. MUSCULOSKELETAL: No joint swelling or deformity. EXTREMITIES: No cyanosis, clubbing, or pedal edema. NEUROLOGICAL: Gross neurological examination did not reveal any focal deficits. SKIN: No rashes. Assessment and plan Chest pain, rule out acute coronary syndrome Hypertension Hyperlipidemia Monitor vital sign Monitor CBC Monitor CMP Continue telemetry monitoring Ordered troponin Ordered 2D echo Order D-dimer Ordered HbA1c level Ordered lipid panel Resume home meds Consult cardiology Labs and medication were reviewed.. Continue same treatment. Continue with symptomatic treatment. Resume home medication. Monitor labs and vitals. DVT and GI prophylaxis. Further recommendations as per clinical course of the patient Dictation was produced using [employer] dictation software. please excuse any grammatical, word or spelling errors. Past Medical History Past Medical History: Cancer, GERD/Reflux, Osteoarthritis (OA) Additional Past Medical History / Comment(s): hx of esophageal cancer 2010-had chemo & radiation prior to surg, shingles, hx of bleeding ulcer. History of Any Multi-Drug Resistant Organisms: ESBL Date of last positivie culture/infection: 12/06/20 MDRO Source:: ESBL URINE Past Surgical History: Section, Orthopedic Surgery, Tubal Ligation Additional Past Surgical History / Comment(s): surg. for fx. pelvis @age of 16, had most of esophagus & 1/3 of stomach removed @[facility] for cancer , C/S x2, nephrostolithotomy, hemorrhoidectomy. 05/11/2020 Right percutaneous nephrolitotomy with neprho tube insertion. Past Anesthesia/Blood Transfusion Reactions: No Reported Reaction Additional Past Anesthesia/Blood Transfusion Reaction / Comment(s): previous blood transfusion without reaction Past Psychological History: Anxiety, Depression Smoking Status: Current every day smoker Past Alcohol Use History: None Reported Past Drug Use History: Marijuana - Past Family History Sister(s) Family Medical History: Deep Vein Thrombosis (DVT) Mother Family Medical History: Deep Vein Thrombosis (DVT) Medications and Allergies Home Medications Medication Instructions Recorded Confirmed Type Pantoprazole Sodium [Protonix] 40 mg PO BID 11/23/19 09/10/23 History Atorvastatin [Lipitor] 20 mg PO HS 09/10/23 09/10/23 History Empagliflozin [Jardiance] 25 mg PO DAILY 09/10/23 09/10/23 History Fluticasone Nasal [place] [Flonase 1 spray EA NOSTRIL DAILY 09/10/23 09/10/23 History Nasal [place]] lisinopriL [Zestril] 5 mg PO DAILY 09/10/23 09/10/23 History Allergies Allergy/AdvReac Type Severity Reaction Status Date / Time aspirin AdvReac Abdominal Verified 09/10/23 11:33 Pain steroids AdvReac chest Uncoded 09/10/23 11:33 tightness Physical Exam Vitals: Vital Signs Temp Pulse Resp BP Pulse Ox 09/10/23 12:00 110 H 98/66 09/10/23 11:00 113 H 103/65 09/10/23 10:35 123 H 18 103/65 09/10/23 10:30 112 H 140/99 09/10/23 10:01 97.8 F 137 H 24 148/81 98 Intake and Output 09/09/23 09/10/23 09/10/23 22:59 06:59 14:59 Other: Weight 44.906 kg Results CBC & Chem 7: 09/10/23 10:15 09/10/23 10:15 Labs: Abnormal Lab Results - Last 24 Hours (Table) 09/10/23 Range/Units 10:15 Sodium 136 L (137-145) mmol/L Carbon Dioxide 20 L (22-30) mmol/L Glucose 134 H (74-99) mg/dL
--- NOTE | 2023-09-11 10:08 | P.CRDCN ---
History of Present Illness Consult date: 09/11/23 Consult reason: chest pain History of present illness: This is a 58-year-old female with no previous cardiac history. She has a past medical history of hypertension, hyperlipidemia and diabetes mellitus type 2, tobacco use and dependence. Have been asked to evaluate the patient for chest pain. Patient reports chest pressure radiating down the left arm with a little shortness of breath. Blood pressure 112/76, heart rate 100, pulse ox 99% on room air, afebrile. Options discussed with the patient and she is agreeable to move forward with stress echocardiogram today. EKG: Sinus rhythm with no acute ST-T wave changes. Chest x-ray: No acute process Echocardiogram reveals normal LV function. Mild aortic regurgitation and stenosis, mild mitral regurgitation. Laboratory studies: WBC 4.8, hemoglobin 11.6. Sodium 139, potassium 4.2, BUN 14 creatinine 0.7. Hemoglobin A1c 6.6 troponin negative x 3. Triglycerides 105, cholesterol 187, LDL 114, HDL 51 Home cardiac medications: Atorvastatin 20 mg at bedtime, Jardiance 25 mg daily, lisinopril 5 mg daily. Review Of Systems: At the time of my exam: CONSTITUTIONAL: Denies fever or chills. HEENT: Denies blurred vision, vision changes, or eye pain. Denies hemoptysis CARDIOVASCULAR: Denies chest pain. Denies orthopnea. Denies PND. Denies palpitations RESPIRATORY: Denies shortness of breath. GASTROINTESTINAL: Denies abdominal pain. Denies nausea or vomiting. HEMATOLOGIC: Denies bleeding disorders. GENITOURINARY: Denies any blood in urine. SKIN: Denies puritis. Denies rash. Physical examination: Gen: This is a thin 58-year-old female in no acute distress VS: reviewed HEENT: Head is atraumatic, normocephalic. Pupils equal, round. Sclerae is anicteric. NECK: Supple. No JVD. LUNGS: Clear to auscultation. No wheezes or rhonchi. No intercostal retractions. HEART: Regular rate and rhythm. No murmur. ABDOMEN: Soft No tenderness. EXTREMITIES: No pedal edema. No calf tenderness. NEUROLOGICAL: Patient is awake, alert and oriented x3. Assessment: Atypical chest pain, acute coronary syndrome ruled out Hypertension Hyperlipidemia Diabetes mellitus type 2 Tobacco use and dependence Plan: Resume patient's home cardiac medications Obtain stress echocardiogram today If stress test is normal, patient is cleared for discharge from cardiology May follow-up in the office with Dr. Ariane Duval in 4 weeks. Smoking cessation, patient will be provided with the [place] quit line inf ormation at the time of discharge. Thank you kindly for this consultation. Nurse practitioner note has been reviewed, I agree with documented findings and plan of care. Patient was seen and examined. Past Medical History Past Medical History: Cancer, GERD/Reflux, Osteoarthritis (OA) Additional Past Medical History / Comment(s): hx of esophageal cancer 2010-had chemo & radiation prior to surg, shingles, hx of bleeding ulcer. History of Any Multi-Drug Resistant Organisms: ESBL Date of last positivie culture/infection: 12/06/20 MDRO Source:: ESBL URINE Past Surgical History: Section, Orthopedic Surgery, Tubal Ligation Additional Past Surgical History / Comment(s): surg. for fx. pelvis @age of 16, had most of esophagus & 1/3 of stomach removed @[facility] for cancer , C/S x2, nephrostolithotomy, hemorrhoidectomy. 05/11/2020 Right percutaneous nephrolitotomy with neprho tube insertion. Past Anesthesia/Blood Transfusion Reactions: No Reported Reaction Additional Past Anesthesia/Blood Transfusion Reaction / Comment(s): previous blood transfusion without reaction Past Psychological History: Anxiety, Depression Additional Psychological History / Comment(s): 10 years ago Smoking Status: Current every day smoker Past Alcohol Use History: None Reported Additional Past Alcohol Use History / Comment(s): half pack daily, started smoking age 14(quit for 8 yrs and restarted) Past Drug Use History: Marijuana Additional Drug Use History / Comment(s): marijuana vape used occasionally throughout the week - Past Family History Sister(s) Family Medical History: Deep Vein Thrombosis (DVT) Mother Family Medical History: Deep Vein Thrombosis (DVT) Medications and Allergies Home Medications Medication Instructions Recorded Confirmed Type Pantoprazole Sodium [Protonix] 40 mg PO BID 11/23/19 09/10/23 History Atorvastatin [Lipitor] 20 mg PO HS 09/10/23 09/10/23 History Empagliflozin [Jardiance] 25 mg PO DAILY 09/10/23 09/10/23 History Fluticasone Nasal [place] [Flonase 1 spray EA NOSTRIL DAILY 09/10/23 09/10/23 H istory Nasal [place]] lisinopriL [Zestril] 5 mg PO DAILY 09/10/23 09/10/23 History Allergies Allergy/AdvReac Type Severity Reaction Status Date / Time aspirin AdvReac Abdominal Verified 09/10/23 11:33 Pain steroids AdvReac chest Uncoded 09/10/23 11:33 tightness Physical Exam Vitals: Vital Signs Temp Pulse Pulse Resp BP BP Pulse Ox 09/11/23 07:40 98.2 F 100 17 112/76 99 09/11/23 01:31 97.6 F 97 16 109/76 99 09/10/23 20:00 97.6 F 108 H 16 113/54 98 09/10/23 16:15 97.7 F 102 H 16 129/79 100 09/10/23 16:02 98.2 F 09/10/23 16:00 107 H 16 126/76 97 09/10/23 15:00 104 H 17 114/78 96 09/10/23 14:30 113 H 18 108/76 97 09/10/23 14:00 103 H 106/72 09/10/23 13:30 97 106/71 09/10/23 12:00 110 H 98/66 09/10/23 11:00 113 H 103/65 09/10/23 10:35 123 H 18 103/65 09/10/23 10:30 112 H 140/99 09/10/23 10:01 97.8 F 137 H 24 148/81 98 Intake and Output 09/10/23 09/11/23 09/11/23 22:59 06:59 14:59 Intake Total 240 Balance 240 Intake: Oral 240 Other: Voiding Method Toilet Toilet # Voids 1 Weight 44.906 kg Results 09/11/23 05:32 09/11/23 05:32 Cardiac Enzymes 09/10/23 09/10/23 09/10/23 Range/Units 10:15 10:15 13:26 AST 27 (14-36) U/L Troponin I 0.016 0.016 (0.000-0.034) ng/mL 09/10/23 Range/Units 17:28 AST (14-36) U/L Troponin I 0.018 (0.000-0.034) ng/mL Coagulation 09/10/23 Range/Units 10:15 PT 10.2 (10.0-12.5) sec APTT 26.5 (22.0-30.0) sec CBC 09/10/23 Range/Units 10:15 WBC 7.8 (3.8-10.6) k/uL RBC 4.57 (3.80-5.40) m/uL Hgb 13.1 (11.4-16.0) gm/dL Hct 39.6 (34.0-46.0) % Plt Count 246 (150-450) k/uL Comprehensive Metabolic Panel 09/10/23 Range/Units 10:15 Sodium 136 L (137-145) mmol/L Potassium 4.3 (3.5-5.1) mmol/L Chloride 107 (98-107) mmol/L Carbon Dioxide 20 L (22-30) mmol/L BUN 16 (7-17) mg/dL Creatinine 0.70 (0.52-1.04) mg/dL Glucose 134 H (74-99) mg/dL Calcium 9.6 (8.4-10.2) mg/dL AST 27 (14-36) U/L ALT 12 (4-34) U/L Alkaline Phosphatase 81 (38-126) U/L Total Protein 7.5 (6.3-8.2) g/dL Albumin 4.2 (3.5-5.0) g/dL Current Medications Generic Name Dose Route Start Last Admin Trade Name Freq PRN Reason Stop Dose Admin Acetaminophen 650 mg 09/10/23 11:38 09/10/23 21:02 Acetaminophen Tab 325 Mg Tab PO 650 mg Q6HR PRN Administration Mild Pain or Fever > 100.5 Atorvastatin Calcium 20 mg 09/10/23 21:00 09/10/23 21:01 Atorvastatin 20 Mg Tab PO 20 mg HS PETER Administration Dapagliflozin 10 mg 09/11/23 09:00 Dapagliflozin Propanediol 10 Mg Tablet PO DAILY PETER Fluticasone Propionate 1 spray 09/11/23 09:00 Fluticasone Nasal 50mcg/[place] 16gm Btl EA NOSTRIL DAILY PETER Sodium Chloride 1,000 mls @ 75 mls/hr 09/10/23 11:45 09/11/23 02:55 Saline 0.9% IV 75 mls/hr .[id number] PETER Administration Lisinopril 5 mg 09/11/23 09:00 Lisinopril 5 Mg Tab PO DAILY PETER Naloxone HCl 0.2 mg 09/10/23 11:38 Naloxone 0.4 Mg/Ml 1 Ml Vial IV Q2M PRN Opioid Reversal Pantoprazole Sodium 40 mg 09/10/23 21:00 09/10/23 21:01 Pantoprazole 40 Mg Tablet PO 40 mg BID PETER Administration Intake and Output 09/10/23 09/11/23 09/11/23 22:59 06:59 14:59 Intake Total 240 Balance 240 Intake: Oral 240 Other: Voiding Method Toilet Toilet # Voids 1 Weight 44.906 kg 09/10/23 10:15 09/10/23 10:15
--- NOTE | 2023-09-11 12:12 | P.PN ---
Subjective Progress Note Date: 09/11/23 patient is a 58-year-old female with past medical history significant for hyperlipidemia, diabetes mellitus, hypertension who presented to ER because of chest pain that started last night. Patient stated she was all right last night when she experienced chest pain that was pressure-like in the center of her chest, radiated to her left arm. There was no aggravating or relieving factors associated with this chest pain. Patient was complaining of shortness of breath at the time. Patient also complained of nausea but no vomiting. There was no complaint of orthopnea or PND. There was no complaint of lightheadedness or dizziness. Because of chest pain, patient came to the ER Initial lab work done in the ER showed WBC 9.8, hemoglobin 13.1, platelet count 246, D-dimer 0.4, sodium 136, potassium 4.3, BUN 16, creatinine 0.70, AST 27, ALT 12, troponin 0.016, proBNP 1440 EKG done in the ER showed heart rate of 121, no ST segment elevation or depression seen, no T-wave inversions seen. Patient admitted to internal medicine service 09/10. Patient examined. Denies any chest pain. Currently n.p.o., going for stress test today REVIEW OF SYSTEMS: CONSTITUTIONAL: No fever, no malaise,. CARDIOVASCULAR: No chest pain, no palpitations, no syncope. PULMONARY: No shortness of breath, no cough, GASTROINTESTINAL: No diarrhea, no nausea, no vomiting, no abdominal pain. NEUROLOGICAL: No headaches, no weakness, PHYSICAL EXAMINATION: GENERAL: The patient is alert and oriented x3, not in any acute distress. Well developed, well nourished. HEENT: Pupils are round and equally reacting to light. EOMI. No scleral icterus. No conjunctival pallor. Normocephalic, atraumatic. No pharyngeal erythema. No thyromegaly. CARDIOVASCULAR: S1 and S2 present. No murmurs, rubs, or gallops. PULMONARY: Chest is clear to auscultation, no wheezing or crackles. ABDOMEN: Soft, nontender, nondistended, normoactive bowel sounds. No palpable organomegaly. MUSCULOSKELETAL: No joint swelling or deformity. EXTREMITIES: No cyanosis, clubbing, or pedal edema. NEUROLOGICAL: Gross neurological examination did not reveal any focal deficits. SKIN: No rashes. Assessment and plan Chest pain, rule out acute coronary syndrome Hypertension Hyperlipidemia Monitor vital sign Monitor CBC Monitor CMP Continue telemetry monitoring Trend troponin Ordered 2D echo Ordered stress test. Cardiology following Labs and medication were reviewed.. Continue same treatment. Continue with symptomatic treatment. Resume home medication. Monitor labs and vitals. DVT and GI prophylaxis. Further recommendations as per clinical course of the patient Dictation was produced using [employer] dictation software. please excuse any grammatical, word or spelling errors. Objective - Vital Signs Vital signs: Vital Signs Temp 98.2 F 09/11/23 07:40 Pulse 100 09/11/23 07:40 Resp 17 09/11/23 07:40 BP 112/76 09/11/23 07:40 Pulse Ox 99 09/11/23 07:40 FiO2 Intake & Output 09/10/23 09/11/23 09/11/23 18:59 06:59 18:59 Intake Total 240 Balance 240 Weight 44.906 kg Intake: Oral 240 Other: Voiding Method Toilet Toilet # Voids 1 - Labs CBC & Chem 7: 09/11/23 05:32 09/11/23 05:32 Labs: Abnormal Lab Results - Last 24 Hours (Table) 09/10/23 09/11/23 09/11/23 Range/Units 10:15 05:32 05:32 Hgb 11.6 L (12.0-15.0) g/dL Hct 35.7 L (37.2-46.3) % RDW 15.4 H (11.5-14.5) % Sodium 136 L (137-145) mmol/L Carbon Dioxide 20 L (22-30) mmol/L Anion Gap (4.00-12.00) mmol/L BUN/Creatinine Ratio (12.00-20.00) Ratio Glucose 134 H (74-99) mg/dL Hemoglobin A1c 6.6 H (<=6.0) % Albumin/Globulin Ratio (1.60-3.17) Ratio 09/11/23 Range/Units 05:32 Hgb (12.0-15.0) g/dL Hct (37.2-46.3) % RDW (11.5-14.5) % Sodium (137-145) mmol/L Carbon Dioxide 19.0 L (22-30) mmol/L Anion Gap 13.00 H (4.00-12.00) mmol/L BUN/Creatinine Ratio 21.00 H (12.00-20.00) Ratio Glucose 68 L (74-99) mg/dL Hemoglobin A1c (<=6.0) % Albumin/Globulin Ratio 1.50 L (1.60-3.17) Ratio
[2023-09-11 12:39] VITALS: BMI 18.1
[2023-09-11 14:54] VITALS: BP 111/74; PULSE 103; RESP 16
--- NOTE | 2023-09-11 18:14 | CA ---
Stress Echo Report Iris Marshall Age: 58 Gender: F : 1965 Exam Date: 09/11/2023 12:29 Exam Location: [place] [facility] Ht (in): 62 Wt (lb): 99 Ordering Physician: Viktoria Amezquita Referring Physician: Alirio FOX Head Stock Operator: Ce Valverde RDCS Technologist Procedure CPT: Indication: Chest Pain ICD-9 Codes: Rhythm: Patient History: CP, CHOL, DM, TOB, COPD Cardiac Medications: SEE CHART Medications in past 24 hours: Contrast: Stress Results Protocol: Earl Total dose(mL): Exercise Duration (min:sec): 4:[address] Depression (mm): Angina Score: Javier Score: METS: 6.5 Resting HR: 121 Resting BP: 105 / 62 Peak HR: 150 Peak BP: 143 / 80 Max Predicted HR: 160 94 % Max Predicted HR Target HR: 136 Double Product: 72749 Stress Summary: BP Response: Reason for Termination: Reached target heart rate or work-load Cardiac Symptoms: Test terminated after reaching target heart rate (85% max predicted) ECG Analysis Resting ECG: Normal sinus rhythm normal axis normal intervals Stress ECG: Patient exercised on Earl protocol for 4 minutes achieving 85% of predicted maximal heart rate without chest pain there were nondiagnostic ST-T wave changes noted Arrhythmia: Echo Analysis Resting Echo: Normal left ventricular size wall motion and LV systolic function Peak Echo Analysis: No exercise induced wall motion abnormalities MEASUREMENTS (Male/Female) Normal Values CONCLUSIONS Very poor exercise tolerance Negative stress test by EKG criteria Negative stress echo Dr. Jg Duval MD (Electronically Signed) Final Date: 11 September 2023 18:13
--- NOTE | 2023-09-12 10:02 | P.DS ---
Providers Date of admission: 09/10/23 11:44 Expected date of discharge: 09/12/23 Attending physician: Conrad Day MD Consults: 09/10/23 11:38 Consult Physician Routine Consulting Provider: [facility] Consult Reason/Comments: chest pain Do you want consulting provider notified?: Yes Primary care physician: Roderick Mcnair [facility] Course: Discharge diagnoses; Chest pain, acute coronary syndrome ruled out Hypertension Hyperlipidemia Hospital course; patient is a 58-year-old female with past medical history significant for hyperlipidemia, diabetes mellitus, hypertension who presented to ER because of chest pain that started last night. Patient stated she was all right last night when she experienced chest pain that was pressure-like in the center of her delmi st, radiated to her left arm. There was no aggravating or relieving factors associated with this chest pain. Patient was complaining of shortness of breath at the time. Patient also complained of nausea but no vomiting. There was no complaint of orthopnea or PND. There was no complaint of lightheadedness or dizziness. Because of chest pain, patient came to the ER Initial lab work done in the ER showed WBC 9.8, hemoglobin 13.1, platelet count 246, D-dimer 0.4, sodium 136, potassium 4.3, BUN 16, creatinine 0.70, AST 27, ALT 12, troponin 0.016, proBNP 1440 EKG done in the ER showed heart rate of 121, no ST segment elevation or depression seen, no T-wave inversions seen. Patient admitted to internal medicine service 09/10. Patient examined. Denies any chest pain. 2D echo done showed normal LV function, mild mild aortic regurg and stenosis. Stress test done was negative for any ischemia. Cardiology cleared the patient for discharge PHYSICAL EXAMINATION: GENERAL: The patient is alert and oriented x3, not in any acute distress. Well developed, well nourished. HEENT: Pupils are round and equally reacting to light. EOMI. No scleral icterus. No conjunctival pallor. Normocephalic, atraumatic. No pharyngeal erythema. No thyromegaly. CARDIOVASCULAR: S1 and S2 present. No murmurs, rubs, or gallops. PULMONARY: Chest is clear to auscultation, no wheezing or crackles. ABDOMEN: Soft, nontender, nondistended, normoactive bowel sounds. No palpable organomegaly. MUSCULOSKELETAL: No joint swelling or deformity. EXTREMITIES: No cyanosis, clubbing, or pedal edema. NEUROLOGICAL: Gross neurological examination did not reveal any focal deficits. SKIN: No rashes. Dictation was produced using [employer] dictation software. please excuse any grammatical, word or spelling errors. Patient Condition at Discharge: Good Plan - Discharge Summary Discharge Rx Participant: No New Discharge Prescriptions: Continue Pantoprazole Sodium [Protonix] 40 mg PO BID lisinopriL [Zestril] 5 mg PO DAILY Empagliflozin [Jardiance] 25 mg PO DAILY Fluticasone Nasal [place] [Flonase Nasal [place]] 1 spray EA NOSTRIL DAILY Atorvastatin [Lipitor] 20 mg PO HS Discharge Medication List Pantoprazole Sodium [Protonix] 40 mg PO BID 11/23/19 [History] Atorvastatin [Lipitor] 20 mg PO HS 09/10/23 [History] Empagliflozin [Jardiance] 25 mg PO DAILY 09/10/23 [History] Fluticasone Nasal [place] [Flonase Nasal [place]] 1 spray EA NOSTRIL DAILY 09/10/23 [History] lisinopriL [Zestril] 5 mg PO DAILY 09/10/23 [History] Follow up Appointment(s)/Referral(s): Roderick Mcnair DO [Primary Care Provider] - 1-2 days Jg Duval MD [STAFF PHYSICIAN] - 4 Weeks Patient Instructions/Handouts: Chest Pain (ED) Discharge/Stand Alone Forms: Work/School Release, Work/Release Restrictions Form Discharge Disposition: HOME SELF-CARE
== END 2023-09-11 18:40 | disposition home or self-care (01) ==
LOC: EC 10:00 → 6NMEDSUR 11:44
PROVIDERS: ADMIT Internal Medicine; ATTEND Internal Medicine
DX: R07.89 Other chest pain (principal); I08.0 Rheumatic disorders of both mitral and aortic valves; M79.602 Pain in left arm; R11.0 Nausea; E78.5 Hyperlipidemia, unspecified; I10 Essential (primary) hypertension; E11.9 Type 2 diabetes mellitus without complications; F17.210 Nicotine dependence, cigarettes, uncomplicated; Z79.84 Long term (current) use of oral hypoglycemic drugs; Z79.899 Other long term (current) drug therapy; Z88.6 Allergy status to analgesic agent; Z88.8 Allergy status to other drugs, medicaments and biological substances; Z85.01 Personal history of malignant neoplasm of esophagus
CPT/HCPCS: 96361 ×2; 96360; 99285; 36415; 94760; 93005; 93306; 93351; 85379; 83880; 80061; 80053 ×2; 83690; 83735; 84484; 85025 ×2; 85610; 85730; 83036; 71046; G0378 ×2

== ENCOUNTER 2024-02-26 10:13 | Day surgery (SDC) | payer BC ==
[2024-02-20 16:24] VITALS: BMI 19.7
[~2024-02-26 10:13] MED LIST changes: +ONDANSETRON 4 MG/2 ML VIAL IVP PRN
[2024-02-26] MEDS: SODIUM CHLORIDE 0.9% 1,000 ML IV ONE (11:00)
[2024-02-26 11:03] VITALS: TEMP 97.8
[2024-02-26] MEDS ORDERED: LIDOCAINE 1% INJ 10MG/ML (20 ML MDV) ONE (12:07)
[2024-02-26] MEDS ORDERED: PROPOFOL 10 MG/ML 20 ML VIAL IV ONE (12:07)
--- NOTE | 2024-02-26 12:18 | P.PCN ---
Date of Procedure: 02/26/24 Procedure(s) Performed: BRIEF HISTORY: Patient is a 63-year-old, pleasant, white female scheduled for an upper endoscopy as a part of surveillance of Wadsworth's esophagus. She was diagnosed with esophageal cancer in 2011 and is s/p distal esophagectomy with gastric pull-through. Last EGD was in April 2021 and was noted to have short segment Wadsworth's esophagus at the anastomosis.. PROCEDURE PERFORMED: Esophagogastroduodenoscopy with biopsy. PREOPERATIVE DIAGNOSIS: Follow-up esophageal cancer and Wadsworth's esophagus. IV sedation per anesthesia. PROCEDURE: After informed consent was obtained, the patient was brought into the endoscopy unit. IV sedation was administered by Anesthesia under continuous monitoring. Initially the Olympus GIF-140 video endoscope was inserted into the mouth. Esophagus intubated without any difficulty. It was gradually advanced into the stomach. There was large amount of food in the stomach noted. Despite multiple attempts I was not able to advance the scope into the duodenum. There was evidence of distal esophagectomy with gastric pull-through noted. The anastomosis was located at 22 cm from the incisors. The scope was then withdrawn into the esophagus. There was evidence of Wadsworth's esophagus extending from 20 to 22 cm from the incisors and multiple biopsies were done from this area from the incisors. The rest of the esophagus appeared normal. There were no erosions or ulcerations seen and the patient tolerated the procedure well. IMPRESSION: 1. Evidence of distal esophagectomy with gastric pull-through. 2. Wadsworth's esophagus extending from 20 to 22 cm from the incisors status post multiple biopsies. 3. Widely patent anastomosis 4. Retained food in the stomach RECOMMENDATIONS: The findings of this examination were discussed with the patient as well as her family. She was advised to follow-up with the biopsy results.. Continue with Protonix 40 mg daily and follow antireflux measures. Recommend repeat upper endoscopy in 3 years.
[2024-02-26 12:43] VITALS: BP 116/74; PULSE 98; RESP 16
== END 2024-02-26 13:09 | disposition home or self-care (01) ==
LOC: ORWHC2ENDO 10:13
PROVIDERS: ATTEND Internal Medicine Gastroenterology
DX: K22.70 Barrett's esophagus without dysplasia (principal); K21.00 Gastro-esophageal reflux disease with esophagitis, without bleeding; K31.89 Other diseases of stomach and duodenum; J44.9 Chronic obstructive pulmonary disease, unspecified; Z85.01 Personal history of malignant neoplasm of esophagus; Z90.49 Acquired absence of other specified parts of digestive tract; F41.9 Anxiety disorder, unspecified; F32.A Depression, unspecified; F17.210 Nicotine dependence, cigarettes, uncomplicated; Z79.899 Other long term (current) drug therapy; Z98.51 Tubal ligation status; Z98.890 Other specified postprocedural states; Z88.6 Allergy status to analgesic agent; Z88.8 Allergy status to other drugs, medicaments and biological substances
CPT/HCPCS: 43239; J2003; J2704; 88305

== ENCOUNTER → 2024-04-13 | Outpatient (CLI) | payer BC ==
--- NOTE | 2024-04-13 13:52 | CT ---
EXAMINATION TYPE: CT abdomen pelvis wo con CT DLP: 348 mGycm, Automated exposure control for dose reduction was used. DATE OF EXAM: 04/13/2024 1:15 PM COMPARISON: CT abdomen pelvis 06/25/2023, 01/05/2023 CLINICAL INDICATION:Female, 59 years old with history of calculus of kidney; RIGHT SIDED FLANK PAIN TECHNIQUE: Standard CT of the abdomen and pelvis without IV or oral contrast. Lack of IV or oral co ntrast limits evaluation of solid and hollow organ viscera. Coronal and sagittal reformats were perfo rmed. FINDINGS: LOWER CHEST: The visualized lung bases are clear. Trace pericardial effusion. ABDOMEN LIVER: Unremarkable noncontrast appearance. GALLBLADDER AND BILE DUCTS: Unremarkable noncontrast appearance. PANCREAS: Unremarkable noncontrast appearance. SPLEEN: Unremarkable noncontrast appearance. ADRENAL GLANDS: Unremarkable noncontrast appearance.. KIDNEYS AND URETERS: No evidence of hydronephrosis. Redemonstration of right renal cysts measuring up to 4.3 cm. Exophytic left superior pole 1.5 cm cyst. Multiple nonobstructive right renal calculi wit h a prominent 1.8 x 0.9 cm calculus again within the lower pole. Additional multiple nonobstructive l eft renal calculi with largest measuring up to 4 mm. Similar diminished size of left kidney with area s of cortical volume loss redemonstrated. No definitive ureteral calculus. PELVIS BLADDER: Incompletely distended but grossly unremarkable. REPRODUCTIVE: Unremarkable noncontrast appearance. ABDOMEN & PELVIS STOMACH AND BOWEL: Redemonstration of partial visualization of gastric pull-up with surgical changes at the diaphragm.No focal bowel wall thickening or surrounding inflammatory changes. The appendix is within normal limits. Scattered distal colonic diverticula without evidence for acute diverticulitis. No evidence of bowel obstruction. PERITONEUM: No evidence of pneumoperitoneum or free fluid. VASCULATURE: Mild atherosclerotic calcifications are present throughout the abdominal aorta and its b ranches. No evidence of aortic aneurysm. Pelvic phleboliths with additional phleboliths just below th e right adrenal gland again seen. MUSCULOSKELETAL: No acute osseous abnormalities. Surgical change of the pubic symphysis is again seen . LYMPH NODES: No gross evidence for lymphadenopathy. SOFT TISSUE/ABDOMINAL WALL: Unremarkable IMPRESSION: 1. No evidence for obstructive uropathy. 2. Multiple bilateral nonobstructing renal calculi are redemonstrated. 3. Colonic diverticulosis without evidence for acute diverticulitis. [facility], , 04/13/2024 1:49 PM
== END | disposition home or self-care (01) ==
LOC: RADCTMAIN 12:55
PROVIDERS: ATTEND Urology
DX: N20.0 Calculus of kidney (principal); K57.30 Diverticulosis of large intestine without perforation or abscess without bleeding
CPT/HCPCS: 74176

== ENCOUNTER → 2024-07-30 | Outpatient (CLI) | payer BC ==
--- NOTE | 2024-07-30 16:04 | CT ---
EXAMINATION TYPE: CT abdomen pelvis w con DATE OF EXAM: 07/30/2024 COMPARISON: 04/13/2024 CLINICAL INDICATION: Female, 59 years old with history of R07.82 Trauma pain Rt Ribcage M25.511 Rt sh oulder; PHH, PAIN IN STOMACH TECHNIQUE: Performed with Oral Contrast and with IV Contrast, patient injected with 100 ml mL of Isovue 300. CT DLP: 359.[address] CTDI: mGy Automated exposure control for dose reduction was used. FINDINGS: The lung bases are clear. There is a partially intrathoracic stomach. There is a small pericardial ef fusion. The gallbladder is normal without distention, wall thickening, pericholecystic fluid or gallstones. T here is no biliary ductal dilatation. There is no focal mass or organomegaly involving the liver, pancreas, spleen or adrenal glands. There is marked pancreatic atrophy There is no solid renal mass or hydronephrosis and there is homogeneous contrast enhancement of the r enal parenchyma. There are multiple bilateral renal cysts the largest is a 4.5 cm cyst in the lower p ole the right kidney. There is a 17.7 mm nonobstructing calcification lower pole right kidney. There are multiple small nonobstructing calcifications in the left kidney and the left kidney is mildly to moderately atrophic. The caliber the abdominal aorta is normal is no retroperitoneal adenopathy or hemorrhage. The bowel loops are normal in caliber and there is no evidence of dilatation or obstruction. No infla mmatory changes are identified in the bowel wall or mesentery. There is no free intraperitoneal air or fluid. No pelvic mass, free fluid, abscess or adenopathy. There is a healed fracture of the right inferior pubic ramus and there are postsurgical changes in th e pubic symphysis IMPRESSION: 1. Partially intrathoracic stomach. 2. Marked pancreatic atrophy. 3. Nonobstructive bilateral nephrocalcinosis. 4. Mild to moderate left renal atrophy. 5. Remote pelvic trauma. [facility], , 07/30/2024 4:02 PM
== END | disposition home or self-care (01) ==
LOC: RADCTMAIN 14:00
PROVIDERS: ATTEND Internal Medicine Hematology & Oncology
DX: C15.5 Malignant neoplasm of lower third of esophagus (principal); D50.0 Iron deficiency anemia secondary to blood loss (chronic); B02.9 Zoster without complications; N20.0 Calculus of kidney; N29 Other disorders of kidney and ureter in diseases classified elsewhere; N26.1 Atrophy of kidney (terminal); K86.89 Other specified diseases of pancreas
CPT/HCPCS: 74177; Q9967

== ENCOUNTER → 2024-09-17 | Outpatient (CLI) | payer BC ==
--- NOTE | 2024-09-17 10:26 | CTL ---
EXAMINATION TYPE: CT Low Dose Lung DATE OF EXAM: 09/17/2024 10:17 AM COMPARISON: 10/10/2022 CLINICAL INDICATION: Female, 59 years old with history of Z12.2 ENCNTR SCREEN FOR MALIGNANT NEOPLASM OF RESP, Lung CA screening, History of tobacco use. TECHNIQUE: Low Dose CT Lung Screening, Low dose computed tomography scan was performed through the est at 1 millimeter thick sections and reconstructed images in the coronal plane at 1 mm thick sectio ns. IV CONTRAST USED: None. SCREENING VISIT: First visit CT DLP: 51.9 mGycm, Automated exposure control for dose reduction was used. CT CTDI: 1.4 mGy FINDINGS: CT DIAGNOSTIC QUALITY: Satisfactory LUNG NODULES: Not presentLeft lung: no nodules identified.Right lung: no nodules identified. LUNGS: COPD: Severity: Mild Fibrosis: Severity:None Lymph nodes: None Other findings: None RIGHT PLEURAL SPACE: Effusion: None Calcification: None Thickening: None Pneumothorax: None LEFT PLEURAL SPACE: Effusion: None Calcification: None Thickening: None Pneumothorax: None HEART: * Size within normal limits. * No significant coronary artery calcifications. OTHER FINDINGS: Upper abdomen: Large fixed hiatal hernia. Bony thorax: Degenerative changes Supraclavicular region: No significant abnormalityOther: No significant abnormalityI IMPRESSION: 1. No clinically significant pulmonary nodules. 2. Mild emphysema. CT LUNG RAD AND CT CHEST RECOMMENDATION: Lung-Rad 1 Negative: Continue annual screening with LDCT in 12 months. S Modifier (other clinically significant findings): [facility], , 09/17/2024 10:23 AM
== END | disposition home or self-care (01) ==
LOC: RADCTMAIN 09:17
PROVIDERS: ATTEND Family Medicine
DX: Z12.2 Encounter for screening for malignant neoplasm of respiratory organs (principal); F17.210 Nicotine dependence, cigarettes, uncomplicated; J43.9 Emphysema, unspecified
CPT/HCPCS: 71271